=== PATIENT | female | born 1960 | race Caucasian/White ===

== ENCOUNTER 2017-01-14 05:19 | Inpatient (IN) | payer OTHER ==
[2016-11-25 13:21] VITALS: BMI 38.0
--- NOTE | 2016-11-25 14:03 | PAT Medication Instructions ---
Service Date November 25, 2016. Current Home Medication List Albuterol Hfa (Ventolin Hfa), Unknown Dose INH QID PRN for asthma/allergies Atenolol/Chlorthalidone (Tenoretic 50 Mg/25 Mg), 0.5 TAB PO QAM Metformin Hcl (Glucophage), 500 MG PO BID Multivitamin (Multivitamin), 1 TAB PO QAM Medication Instructions For Your Scheduled Surgery - Hold the following medications 48 hours prior to surgery: Metformin Hcl (Glucophage), 500 MG PO BID - Hold the following medications the morning of surgery: Multivitamin (Multivitamin), 1 TAB PO QAM - Take the following medications the morning of surgery with a sip of water: Albuterol Hfa (Ventolin Hfa), Unknown Dose INH QID PRN for asthma/allergies ( bring with you to hospital morning of surgery) Atenolol/Chlorthalidone (Tenoretic 50 Mg/25 Mg), 0.5 TAB PO QAM If you have any questions please call us at [phone] (Patricia Welch PA-C) or [phone] or [phone]
--- NOTE | 2016-11-25 14:35 | DIAGNOSTIC IMAGING REPORT ---
CHEST PREADMISSION(PA/LAT) CLINICAL HISTORY: Preoperative evaluation. COMPARISON STUDY: Chest radiograph August 08, 2014. FINDINGS: Lung volumes are normal. Lungs are clear. There is no pneumothorax or pleural effusion. Pulmonary vascularity is normal. Cardiac size is at the upper limits of normal. There is no evidence of pulmonary edema. IMPRESSION: No acute cardiopulmonary findings. Electronically signed by: Ashkan Fernandez M.D. 11/25/2016 2:34 PM Dictated Date/Time: 11/25/2016 2:33 PM
[2016-11-25 14:50] LABS: BASO % 0.5 %; BASO ABS # 0.03 K/uL (0-0.2); COMPLETE YES; EOS % 3.7 %; IG% 0.5 %; LYMPH % 18.5 %; LYMPH ABS # 1.16 K/uL (1.2-3.4); MEAN CELL VOLUME 81.9 fL (80-100); MEAN CORPUSCULAR HEMOGLOBIN 25.9 pg (25-34); MEAN CORPUSCULAR HGB CONC 31.6 g/dl (32-36); MEAN PLATELET VOLUME 10.9 fL (7.4-10.4); MONO % 7.3 %; NEUT % 69.5 %; PLATELET COUNT 232 K/uL (130-400); RED BLOOD COUNT 4.52 M/uL (4.2-5.4); WHITE BLOOD COUNT 6.26 K/uL (4.8-10.8)
[2016-11-25 14:56] LABS: ESTIMATED AVERAGE GLUCOSE 137 mg/dl; HA1C FLAG Normal (Normal)
[2016-11-25 15:00] LABS: PARTIAL THROMBOPLASTIN RATIO 0.9; PROTHROMBIN TIME (PATIENT) 10.3 SECONDS (9.0-12.0)
[2016-11-25 15:27] LABS: BUN/CREATININE RATIO 24.9 (10-20); CALCIUM 9.2 mg/dl (8.5-10.1); CREATININE 0.75 mg/dl (0.60-1.20); POTASSIUM 3.6 mmol/L (3.5-5.1)
--- NOTE | 2016-12-31 18:22 | HISTORY & PHYSICAL EXAMINATION ---
DATE OF ADMISSION: 01/05/2017 CHIEF COMPLAINT: Right knee pain. 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 She has got a long history of right knee pain and discomfort dating over the past 10 years. I saw her several years ago and encouraged her to put this off for as long as possible. She has been trying to just get it out for the past 4 or 5 years. Over the past 9 months, pain has become more debilitating. She has trouble working. 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 Her pain is constant. The more she walks, the more it hurts. She would like to have her right knee fixed. PAST MEDICAL HISTORY: 1. Diabetes x8 years. 2. Sleep apnea with CPAP machine. 3. Hypertension. 4. Asthma. 5. Gastroesophageal reflux disease. 6. Sjogren syndrome. 7. Obesity with a BMI of 38.3. 8. Endometrial cancer status post hysterectomy. PAST SURGICAL HISTORY: 1. Cholecystectomy. 2. Triple arthrodesis of left foot done at [place]. 3. Hysterectomy. ALLERGIES: SULFA, PENICILLIN, CIPRO, ADHESIVES. THE REACTION TO PENICILLIN IS RASH. No respiratory problems. CURRENT MEDICINES: Include: 1. Atenolol 12.5 mg a day. 2. Metformin 250 mg twice a day. 3. Multivitamin. SOCIAL HISTORY: A 56-year-old white female. She is . FAMILY HISTORY: Noncontributory. REVIEW OF SYSTEMS: Significant for diabetes. Hemoglobin A1c is 6.4. No chest pain or shortness of breath. No history of DVT or PE. PHYSICAL EXAMINATION: GENERAL: Reveals a pleasant, middle-aged female. She looks about her stated age. HEENT: Benign. NECK: Supple. No lymphadenopathy. LUNGS: Clear to auscultation. HEART: Regular rate and rhythm. ABDOMEN: Soft, nontender, nondistended. EXTREMITIES: Grossly neurovascularly intact except as follows: Examination of the right knee reveals patient walks with a bit of a limp on her right side. She has got varus alignment to her right knee. A little bit of varus thrust with weightbearing. Range of motion is 5-125. No instability. X-RAYS: X-rays of the right knee reviewed. It shows advanced right knee DJD. She has complete loss of medial joint space. She has subchondral sclerosis in the medial side of her knee. ASSESSMENT: A 56-year-old white female with advanced right knee degenerative joint disease. She has failed conservative treatment. It is really limiting her activities and ability to work and would like to proceed with definitive treatment/knee replacement. PLAN: We are going to take her to the operating room and do a right total knee replacement. The risks and benefits of this procedure were explained to patient including but not limited to DVT, PE, , infection, neurological injury, vascular injury, bleeding problem, pain, limited range of motion, stiffness, failure to relieve her symptoms, incomplete relief of symptoms, need for further surgery in the future, fracture, leg length inequality, nerve palsy, etc. The patient understands and desires to proceed. Informed consent was obtained. The patient is aware that at her young age, this may need to be revised at some point in the future. We did talk about bringing her CPAP machine to the hospital. She will take her atenolol the morning of surgery and hold metformin 2 days preop. As far as discharge plans, she is planning to be discharged to home using [facility] home health program. I will see her back 2 weeks postop.
[2017-01-04 13:37] LABS: BASO % 0.2 %; BASO ABS # 0.02 K/uL (0-0.2); HEMATOCRIT 36.2 % (37-47); IG% 0.6 %; LYMPH % 12.5 %; LYMPH ABS # 1.08 K/uL (1.2-3.4); MEAN CELL VOLUME 79.6 fL (80-100); MEAN CORPUSCULAR HEMOGLOBIN 25.1 pg (25-34); MEAN PLATELET VOLUME 9.5 fL (7.4-10.4); MONO % 9.5 %; NEUT % 75.2 %; PLATELET COUNT 272 K/uL (130-400); RED BLOOD COUNT 4.55 M/uL (4.2-5.4); WHITE BLOOD COUNT 8.63 K/uL (4.8-10.8)
[2017-01-04 13:42] LABS: COMPLETE YES; MEAN CORPUSCULAR HGB CONC 31.5 g/dl (32-36)
[2017-01-14] VITALS (8 sets, daily range): BP systolic 104–131; BP diastolic 49–78; PULSE 50–61; TEMP 36.3–36.8; O2SAT 94–99; Ht 175.3 cm; Wt 116.1 kg
[~2017-01-14] VITALS: Ht 175.3 cm; Wt 116.1 kg
[~2017-01-14 05:19] MED LIST: ACETAMINOPHEN 500 MG TAB PO SCH; ATEN-171 PO; BUPIVACAINE LIPOSOME 266 MG, BUPIVACAINE/EPINEPHRINE INJ 50 ML, SODIUM CHLORIDE 0.9% PF... INFIL SCH; CEFAZOLIN 2000 MG/60 ML D5W 60 ML IV SCH; CHECK SCOPOLAMINE PATCH PLACEMENT SCH; FAMOTIDINE 20 MG TAB PO SCH; GABAPENTIN 300 MG CAP PO SCH; GLC/500 PO; LACTATED RINGER'S 1000ML IV SCH; LACTATED RINGER'S 500 ML IV SCH; METOCLOPRAMIDE HCL 10 MG TAB PO SCH; MULT-506 PO; SCOPOLAMINE 1.5 MG TDSY TD SCH; TRANEXAMIC ACID INJ 1,000 MG in SODIUM CHLORIDE 0.9% 100ML 100 ML IV SCH; VNTHFA/IN INH
[2017-01-14] MEDS ORDERED: LACTATED RINGER'S 1000ML IV SCH (06:00)
[2017-01-14] MEDS ORDERED: GABAPENTIN 300 MG CAP PO SCH (06:00)
[2017-01-14] MEDS ORDERED: TRANEXAMIC ACID INJ 1,000 MG in SODIUM CHLORIDE 0.9% 100ML 100 ML IV SCH ×2 (06:00→14:30)
[2017-01-14] MEDS ORDERED: CEFAZOLIN 2000 MG/60 ML D5W 60 ML IV SCH (06:00)
[2017-01-14] MEDS ORDERED: FAMOTIDINE 20 MG TAB PO SCH (06:00)
[2017-01-14] MEDS ORDERED: LACTATED RINGER'S 1000ML 500 ML IV ONE (06:00)
[2017-01-14] MEDS ORDERED: LACTATED RINGER'S 1000ML 1,000 ML IV SCH (06:00)
[2017-01-14] MEDS ORDERED: ACETAMINOPHEN 500 MG TAB PO SCH (06:00)
[2017-01-14] MEDS ORDERED: SCOPOLAMINE 1.5 MG TDSY TD SCH (06:00)
[2017-01-14] MEDS ORDERED: METOCLOPRAMIDE HCL 10 MG TAB PO SCH (06:00)
[2017-01-14] MEDS ORDERED: BUPIVACAINE LIPOSOME 266 MG, BUPIVACAINE/EPINEPHRINE INJ 50 ML, SODIUM CHLORIDE 0.9% PF... INFIL SCH ×3 (06:00)
[2017-01-14] MEDS ORDERED: MIDAZOLAM HCL 1 MG/ML 2ML VIAL ONE ×4 (06:12→07:39)
[2017-01-14] MEDS ORDERED: FENTANYL CITRATE INJ 50 MCG/1 ML 2 ML VIAL ONE (06:12)
[2017-01-14] MEDS ORDERED: PROPOFOL IV EMULSION 10 MG/ML 20 ML VIAL IV ONE (06:13)
[2017-01-14] MEDS ORDERED: BUPIVACAINE 0.5 % 5 MG/1 ML PF 10ML VIAL ONE (06:24)
[2017-01-14] MEDS ORDERED: BUPIVACAINE 0.25% 30 ML VIAL ONE (06:24)
[2017-01-14] MEDS ORDERED: BUPIVACAINE LIPOSOME 1/3% 266 MG/20 ML VIAL INFIL ONE (06:33)
[2017-01-14] MEDS ORDERED: BACITRACIN 50000 UNIT VIAL ONE (06:33)
[2017-01-14] MEDS ORDERED: SODIUM CHLORIDE 0.9% PF 50 ML VIAL ONE (06:33)
[2017-01-14] MEDS ORDERED: BUPIVACAINE/EPINEPHRINE 0.25% 1:200,000 30 ML VIAL ONE (06:33)
--- NOTE | 2017-01-14 06:50 | History & Physical Bridge Note ---
H&P Re-Evaluation Bridge Note: I have examined the patient, reviewed the History & Physical and in the interval since the performance of the History & Physical I have noted the following changes of clinical significance: No changes noted
[2017-01-14] MEDS ORDERED: EpHEDrine SULFATE INJ 50 MG/ML AMP IV PRN (08:15)
[2017-01-14] MEDS ORDERED: ATROPINE SULFATE 0.1 MG/ML 5ML SYR IV PRN (08:15)
[2017-01-14] MEDS ORDERED: ONDANSETRON INJ 2 MG/ML 2 ML VIAL IV PRN ×2 (08:15→08:45)
--- NOTE | 2017-01-14 08:40 | [facility] Post Operative Brief Note ---
Immediate Operative Summary Operative Date Jan 14, 2017. Pre-Operative Diagnosis Right Knee Advanced Degenerative Joint Disease Post-Operative Diagnosis Right Knee Advanced Degenerative Joint Disease Procedure(s) Performed Right Total Knee Arthroplasty Surgeon Dr. Krishna Jewel Grinder Surgeon(s) CHAPINCITO Rene Estimated Blood Loss 50 cc Findings Right Knee DJD Fluids (cc crystalloids) 1300 cc Specimens A. Right Knee Bone and Tissue Drains None Anesthesia Spinal Complication(s) None Disposition Recovery Room / PACU
[2017-01-14] MEDS ORDERED: ZOLPIDEM TARTRATE 5 MG TAB PO PRN (08:45)
[2017-01-14] MEDS ORDERED: GLUCAGON FOR INJ 1 MG VIAL SQ PRN (08:45)
[2017-01-14] MEDS ORDERED: DEXTROSE 50% 50 ML SYR IV PRN (08:45)
[2017-01-14] MEDS ORDERED: DiphenhydrAMINE HCL 50 MG/ML VIAL IV PRN (08:45)
[2017-01-14] MEDS ORDERED: GLUCOSE 40% GEL 15 GM TUBE PO PRN (08:45)
[2017-01-14] MEDS ORDERED: GLUCOSE 10 TABS/TUBE PO PRN (08:45)
[2017-01-14] MEDS ORDERED: ALUMINUM/MAGNESIUM/SIMETH (MAALOX MAX) 30 ML UDC PO PRN (08:45)
[2017-01-14] MEDS ORDERED: METOCLOPRAMIDE HCL INJ 5 MG/ML 2 ML VIAL IV PRN (08:45)
[2017-01-14] MEDS ORDERED: BISACODYL 10 MG SUPP PR PRN (08:45)
[2017-01-14] MEDS ORDERED: MAGNESIUM HYDROXIDE SUSP 30 ML UDC PO PRN (08:45)
[2017-01-14] MEDS ORDERED: MoRPHine SULFATE 2 MG/ML CARP IV PRN (08:45)
[2017-01-14] MEDS ORDERED: MULTIVITAMIN TAB PO SCH (09:00)
--- NOTE | 2017-01-14 09:17 | DIAGNOSTIC IMAGING REPORT ---
RIGHT KNEE 2 VIEWS History: Right total knee arthroplasty. Degenerative arthritis. Postop. FINDINGS: The patient is status post a right total knee arthroplasty. The hardware is intact. No fracture or dislocation. Skin rosalia are in place. IMPRESSION: Right total knee arthroplasty. No evidence for hardware complication. Electronically signed by: Darwin Serrano M.D. 01/14/2017 9:15 AM Dictated Date/Time: 01/14/2017 9:15 AM
--- NOTE | 2017-01-14 09:44 | Anesthesiology Progress Note ---
Anesthesia Post Op Note Date & Time Jan 14, 2017 at 09:43 Vital Signs Pain Intensity: 0 Vital Signs Past 12 Hours Date Time Temp Pulse Resp B/P (MAP) Pulse Ox O2 Delivery O2 Flow Rate FiO2 01/14/17 09:35 60 16 120/48 100 Nasal Cannula 2 01/14/17 09:25 54 15 116/52 100 Nasal Cannula 2 01/14/17 09:15 60 15 117/60 100 Nasal Cannula 2 01/14/17 09:05 55 14 112/49 99 Nasal Cannula 2 01/14/17 08:55 58 14 114/55 99 Nasal Cannula 2 01/14/17 08:48 36.2 63 16 115/56 99 Nasal Cannula 2 01/14/17 06:01 36.8 61 18 131/61 95 Room Air Notes Mental Status: alert / awake / arousable, participated in evaluation Pt Amnestic to Procedure: Yes Nausea / Vomiting: adequately controlled Pain: adequately controlled Airway Patency, RR, SpO2: stable & adequate BP & HR: stable & adequate Hydration State: stable & adequate Neuraxial Anesthesia: was administered, sensory block is resolving Anesthetic Complications: no major complications apparent
[2017-01-14] MEDS: SODIUM CHLORIDE 0.9% 1000ML 1,000 ML IV SCH ×3 (11:52→21:52)
[2017-01-14] MEDS: INSULIN HUMAN REGULAR SC SCH ×3 (12:00→21:51)
[2017-01-14] MEDS: MULTIVITAMIN TAB PO SCH (12:06)
[2017-01-14] MEDS: KETOROLAC TROMETHAMINE 30 MG/ML VIAL IV. SCH ×3 (12:07→23:35)
[2017-01-14] MEDS: FERROUS GLUCONATE 324 MG TAB PO SCH ×2 (12:53→17:39)
[2017-01-14] MEDS: CEFAZOLIN IV 2,000 MG in DEXTROSE 5% 50ML 50 ML IV SCH ×2 (13:17→21:52)
[2017-01-14] MEDS: ACETAMINOPHEN 500 MG TAB PO SCH ×2 (13:18→21:52)
[2017-01-14] MEDS: CHECK SCOPOLAMINE PATCH PLACEMENT SCH ×2 (15:33→23:36)
[2017-01-14] MEDS: OXYCODONE HCL IR 5 MG TAB (IMMEDIATE RELEASE) PO PRN (15:51)
--- NOTE | 2017-01-14 15:58 | PROGRESS NOTE ---
DATE: 01/14/2017 SUBJECTIVE: 56-year-old white female postop from a right knee replacement. She is doing well. No real pain. No chest pain or shortness of breath. Not feeling dizzy or lightheaded. OBJECTIVE: VITAL SIGNS: Temperature is 36.5. Vital signs stable. PHYSICAL EXAMINATION: GENERAL: Reveals a healthy pleasant, middle-aged female. She is sitting up in bed and looks comfortable. LUNGS: Clear to auscultation. HEART: Regular rate and rhythm. ABDOMEN: Soft, nontender, nondistended. EXTREMITIES: Grossly neurovascularly intact except as follows. Examination of the right leg reveals the dressing to be clean, dry and intact. She can dorsiflex and plantarflex her foot appropriately. She is neurologically intact. Good brisk refill. X-RAYS: X-rays of the right knee from recovery room reviewed. It shows a right cemented posterior stabilized total knee arthroplasty. Components looked to be in good position. No signs of problems. ASSESSMENT: 56-year-old white female postop from a right knee replacement. She is doing well. Pain is controlled. She is neurologically intact. PLAN: 1. DVT prophylaxis including thigh-high TEDs, SCDs, and aspirin twice a day. 2. PT/OT. Weightbearing as tolerated. Right total knee protocol. 3. Pain control, doing pretty well with current pain regimen. 4. IV antibiotics x24 hours. 5. Disposition: She is planning to be discharged to home with some home health once adequately recovered.
[2017-01-14] MEDS: DOCUSATE SODIUM 100 MG CAP PO SCH (21:00)
[2017-01-14] MEDS: SENNA 8.6 MG TAB PO SCH (21:00)
[2017-01-14] MEDS: ASPIRIN 325 MG ECTAB PO SCH (21:45)
[2017-01-14] MEDS: TAPENTADOL ER 50 MG TABCR PO SCH (21:46)
[2017-01-14] MEDS ORDERED: ASPEC325 PO (22:28)
[2017-01-14] MEDS ORDERED: RXC5 PO (22:28)
[2017-01-14] MEDS ORDERED: ACET-24 PO (22:28)
[2017-01-14] MEDS ORDERED: FRRG PO (22:28)
[2017-01-14] MEDS ORDERED: MORP-157 PO (22:28)
--- NOTE | 2017-01-14 22:31 | Discharge Instructions ---
Discharge Instructions Date of Service Jan 14, 2017. Admission Reason for Admission: Right Knee Degenerative Joint Disease Discharge Discharge Diagnosis / Problem: Right Knee Replacement Discharge Goals Goal(s): Decrease discomfort, Improve function, Increase independence, Improve disease control, Therapeutic intervention Activity Recommendations Activity Limitations: per Instructions/Follow-up section Weightbearing Status: Right weightbearing . Instructions / Follow-Up Instructions / Follow-Up ACTIVITY RECOMMENDATIONS: Physical Therapy: * You will go to physical therapy three times each week for four to six weeks after your surgery in order to regain your knee range of motion and to retrain your knee to work properly. * It is just as important to make sure you are getting your knee perfectly straight as it is to regain your knee bend. * Taking a pain pill an hour before therapy can help you have a more productive and comfortable therapy session. Home Exercise: * You were shown a series of exercises (heel props, heel slides, etc.) in the hospital. Do these exercises three to four times each day including the exercises you were shown in physical therapy. Walking: * Get up and walk several times each day. For the first four weeks, try not to stand or walk for more than one hour at a time. If you do stand or walk for more than one hour, you will not hurt anything, but your knee and leg will likely swell. * As you feel comfortable, you may change from the walker or crutches to a cane and then to independent walking. MEDICATIONS: New Medicine: * You will likely be taking one or more of these medications: 1. MS Contin - A long-acting pain medication. Take 1 tablet twice a day for the first ten days to decrease your baseline level of pain. 2. Oxycodone - A quick and shorter-acting pain medication. Take one to two tablets every four to six hours to lessen your pain. 3. Iron Sulfate - Take three times each day for the month after surgery to help you replace the blood lost during surgery. 4. Aspirin - Thins your blood to lessen the chance of forming a blood clot. * The most common side effects of pain medicine and iron are nausea and constipation. If nausea or constipation is too much of a problem or if you have any questions about your new medicines or doses, call [facility] at . We will try to help you manage these issues. VERY IMPORTANT TO READ AND REVIEW" Pain: * The immediate post-operative period after knee replacement surgery is often quite painful. * You are given a prescription for pain medicine. You should take it, as directed, when you need it, especially before physical therapy and before going to bed. Pain that interferes with sleep is very common and can last several months. * You will likely need pain medicine for the first four to six weeks. It will not stop all of the pain. The pain will lessen and as you feel better, you may change to milder pain medicine such as Tylenol. * The most common side effects of pain medicine are nausea and constipation, so don't take more than you need. SPECIAL CARE INSTRUCTIONS: TEDs/Elastic Stockings: * The white elastic stockings help limit swelling and prevent blood clots from forming in your legs. The more you wear them, the more they work. * Wear them for six weeks after knee replacement surgery and four weeks after partial knee replacement. Prevention of Infection: * Take antibiotics one hour before any dental cleaning, dental work, urological procedure, gastrointestinal procedure or any invasive surgery in order to prevent your new joint from getting infected. * You may get the antibiotics from the doctor performing the procedure or you may call our office at before and we will call in a prescription to the pharmacy of your choice. Things to Watch For: * Drainage from the incision site that occurs more than one week after your surgery. * Severely increased knee/leg pain or swelling. * Increased redness at the incision site. * Fever above 102 degrees Fahrenheit. * Unusual chest pain or shortness of breath. * Unusual pain or burning with urination. Call [facility] at with any of the above problems or if you have any questions about your medicines or recovery. FOLLOW UP VISIT: Make an appointment to see your doctor for approximately two weeks after surgery for a progress check and staple removal by calling the office at . Current Hospital Diet Patient's current hospital diet: Diabetes Type 2 Diet Discharge Diet Recommended Diet: Diabetes Type 2 Diet Procedures Procedures Performed: Right Total Knee Arthroplasty Pending Studies Studies pending at discharge: no Laboratory Results Hemoglobin A1c Test 11/25/16 14:10 Range/Units Estimated Average Glucose 137 mg/dl Hemoglobin A1c 6.4 H 4.5-5.6 % Medical Emergencies . Who to Call and When: Medical Emergencies: If at any time you feel your situation is an emergency, please call 911 immediately. . Non-Emergent Contact Non-Emergency issues call your: Surgeon . "Provider Documentation" section prepared by Donny Krishna. . VTE Core Measure Inpt VTE Proph given/why not?: Other Anticoagulation, T.E.D. Stockings, SCD's
--- NOTE | 2017-01-14 23:08 | OPERATIVE REPORT ---
DATE OF OPERATION: 01/14/2017 SURGEON: Dr. Donny Krishna. RN PROCEDURE: CHAPINCITO Sanches PREOPERATIVE DIAGNOSIS: Right knee degenerative joint disease. POSTOPERATIVE DIAGNOSIS: Same. PROCEDURE PERFORMED: Right cemented posterior stabilized total knee arthroplasty. COMPLICATIONS: None. ESTIMATED BLOOD LOSS: 50 mL. FLUID REPLACEMENT: 1300 mL crystalloid fluid replacement. TOURNIQUET TIME: 56 minutes at 300 mmHg. ANESTHESIA: Spinal with adductor canal block. DRAINS: None. SPECIMENS: Right knee sent for pathology. 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 She has got a long history of right knee pain and discomfort dating back over the past 10 years. She tried to put this off for years. The pain has become more debilitating. She has been unresponsive to conservative treatment and she elected to proceed with right total knee arthroplasty. OPERATIVE FINDINGS: Operative findings revealed advanced right knee DJD. 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 Not a lot of eburnation, but just cartilage loss. She did have some spotty grade 4 changes laterally and a fairly diffuse grade 4 changes of the patellofemoral joint. She had a moderate sized joint effusion. She had a varus alignment to her knee. OPERATIVE IMPLANTS: Operative implants consisted of: 1. Biomet Vanguard size 65 posterior stabilized femoral component. 2. Biomet size 67 tibia. 3. A 12 mm posterior stabilized polyethylene insert. 4. A 34 x 8.5 All-Poly patella. OPERATIVE PROCEDURE: The patient taken to the operating room, identified and placed on the operating table in supine position. All contact areas were appropriately padded. IV antibiotics were provided by anesthesia team. A spinal anesthetic and adductor canal block had been provided in the holding area. Montoya catheter was placed in sterile fashion. Right thigh tourniquet was then placed. The right lower extremity was then prepped and draped in the usual sterile fashion. The right leg was elevated and exsanguinated with Esmarch and tourniquet was placed at 300 mmHg. An anterior approach to the right knee was then performed through a longitudinal incision centered over the patella. Sharp dissection was carried out through the subcutaneous tissues down to the level of the extensor mechanism. A medial parapatellar arthrotomy incision was made. Some subperiosteal dissection was carried out medially. The fat pad was resected from beneath the patellar tendon. The lateral patellofemoral ligament was released. The patella was everted and knee was flexed. The ACL and PCL were then released from the distal femur and the tibia subluxated anteriorly. The external tibial alignment jig was then placed in the anterior face of the tibia and adjusted 14 mm medially. The tibia was cut to take approximately 2 mm of bone from the medial aspect of the medial tibial plateau. The tibia was sized to a 67. Attention was then drawn to the femur. The distal femur was entered with a sharp drill bit. Intramedullary canal was suctioned. A right 5 degree valgus cutting guide was placed. The distal femoral cutting block was pinned in place. Distal femoral cut was made to take an additional 3 mm of bone off the distal femur. The femur was then sized to a size 65. We did downsize this slightly. The AP cutting block was pinned parallel to the epicondylar axis, which was 3 degrees of external rotation. The anterior cut, anterior chamfer, posterior cut, posterior chamfer cuts were made. Box cutting guide was placed and adjusted slightly lateral and the box cut was made. The knee was flexed. The remnants of the medial and lateral menisci were excised. The osteophytes were taken off the posterior aspect of the femur. Trial femoral component was placed. Tibial tray was pinned in maximum external rotation and the drill and stem punch were used to create defect in proximal tibia for the tibial tray. The knee was then trialed and the 12 mm insert fit most appropriately. Attention was then drawn to the patella. The patella was cleaned of all soft tissues. Patellar thickness measured 22 mm in thickness and was cut down to 13. It was sized to a size 34 patella. The lug holes were drilled for a 34 patella. The lateral osteophyte was removed. Patella button was placed. Knee was taken through range of motion and the patella tracked nicely with no thumbs test. Attention was then drawn toward placement of permanent components. All trial components were removed. A bone plug was placed in the distal femur to limit blood loss. A double batch of Palacos G cement was mixed. A right size 65 posterior stabilized femoral component, size 67 tibial tray, a 12 mm posterior stabilized polyethylene insert, and a 34 x 8.5 All-Poly patella were then cemented in place. Knee was brought out into full extension until cement hardened. A final cement check was then performed. The knee was irrigated with pulsatile lavage and injected with a combination of 30 cc of Exparel, 30 cc of normal saline, 50 mL of .25% marcaine with epinephrine. The tourniquet was left down for a final tourniquet time of 56 minutes. Hemostasis was assured with use of electrocautery. The extensor mechanism was then closed with a combination of #1 PDS suture and #1 Vicryl suture in a [id number] fashion. Extensor mechanism was checked and found to be intact. The subcutaneous tissues were then closed with 2-0 Dexon suture in a buried interrupted fashion. Skin was closed with skin rosalia. Leg was then cleaned and dried and a sterile dressing of Xeroform, 4 x 4, sterile cast padding and Valeriano bandage were applied. The patient then transferred to the recovery room in stable condition. The patient tolerated the procedure well with no complication. All instrument and sponge counts were correct at the end of the operation. I attest to the content of the Intraoperative Record and any orders documented therein. Any exceptions are noted below. IRWIND
[2017-01-15] VITALS (7 sets, daily range): BP systolic 107–151; BP diastolic 54–84; PULSE 53–59; TEMP 36.4–36.9; O2SAT 91–94
[2017-01-15] MEDS: SODIUM CHLORIDE 0.9% 1000ML 1,000 ML IV SCH (04:40)
[2017-01-15] MEDS: KETOROLAC TROMETHAMINE 30 MG/ML VIAL IV. SCH ×3 (05:49→18:02)
[2017-01-15] MEDS: ACETAMINOPHEN 500 MG TAB PO SCH ×3 (05:50→21:06)
[2017-01-15 07:09] LABS: HEMATOCRIT 31.3 % (37-47); MEAN CELL VOLUME 81.1 fL (80-100); MEAN CORPUSCULAR HEMOGLOBIN 25.1 pg (25-34); MEAN PLATELET VOLUME 9.5 fL (7.4-10.4); PLATELET COUNT 212 K/uL (130-400); RED BLOOD COUNT 3.86 M/uL (4.2-5.4); WHITE BLOOD COUNT 6.32 K/uL (4.8-10.8)
[2017-01-15 07:23] LABS: BUN/CREATININE RATIO 18.2 (10-20); CALCIUM 7.9 mg/dl (8.5-10.1); CREATININE 0.84 mg/dl (0.60-1.20); POTASSIUM 3.9 mmol/L (3.5-5.1)
--- NOTE | 2017-01-15 08:08 | PROGRESS NOTE ---
DATE: 01/15/2017 DATE: 01/15/2017. SUBJECTIVE: A 56-year-old white female postop day 1 from right knee replacement. She is doing pretty well. Pain is reasonably well controlled. No chest pain or shortness of breath. Not feeling dizzy or lightheaded. OBJECTIVE: VITAL SIGNS: Temperature 36.7. Vital signs stable. PHYSICAL EXAMINATION: GENERAL: Pleasant middle aged female. She is sitting up in bed, looks pretty comfortable. LUNGS: Clear to auscultation. HEART: Regular rate and rhythm. ABDOMEN: Soft, nontender, nondistended. EXTREMITY EXAMINATION: Grossly neurovascularly intact except as follows: Examination of the right leg reveals the dressing to be clean, dry and intact. She can dorsiflex and plantarflex her foot appropriately. She is neurologically intact. LABORATORY DATA: Hemoglobin 9.7, hematocrit 31.3. Electrolytes are stable. ASSESSMENT: A 56-year-old white female postop day 1 from right knee replacement, doing pretty well. She is slightly anemic, but chronically anemic and without symptoms. Her pain is controlled. PLAN: 1. DVT prophylaxis including thigh-high TEDs, SCDs, and aspirin twice a day. 2. PT/OT. Weightbearing as tolerated. Right total knee protocol. 3. Pain control. Doing pretty well with current pain regimen. 4. Anemia. We will continue iron supplementation. Should not need any additional treatment. 5. Disposition. Plan to discharge to home with home health once adequately recovered.
[2017-01-15] MEDS: INSULIN HUMAN REGULAR SC SCH ×4 (08:44→21:00)
[2017-01-15] MEDS: CHECK SCOPOLAMINE PATCH PLACEMENT SCH ×2 (08:44→16:01)
[2017-01-15] MEDS: DOCUSATE SODIUM 100 MG CAP PO SCH ×2 (08:45→21:04)
[2017-01-15] MEDS: ASPIRIN 325 MG ECTAB PO SCH ×2 (08:45→21:04)
[2017-01-15] MEDS: TAPENTADOL ER 50 MG TABCR PO SCH ×2 (08:45→21:04)
[2017-01-15] MEDS: FERROUS GLUCONATE 324 MG TAB PO SCH ×3 (08:45→18:02)
[2017-01-15] MEDS: CHLORTHALIDONE 25 MG TAB PO SCH (08:49)
[2017-01-15] MEDS: MULTIVITAMIN TAB PO SCH (08:50)
[2017-01-15] MEDS: PANTOprazole SOD 40 MG TAB PO SCH (08:50)
--- NOTE | 2017-01-15 08:51 | Anesthesiology Progress Note ---
Anesthesia Post Op Note Date & Time Jan 15, 2017 at 08:50 Vital Signs Pain Intensity: 2.0 Vital Signs Past 12 Hours Date Time Temp Pulse Resp B/P (MAP) Pulse Ox O2 Delivery O2 Flow Rate FiO2 01/15/17 08:01 36.7 54 17 114/54 (74) 94 Room Air 01/15/17 07:30 93 Room Air 01/15/17 04:31 36.7 53 18 112/71 (85) 93 Room Air 01/14/17 23:30 Room Air CPAP 01/14/17 22:57 36.7 53 16 104/60 (75) 94 CPAP Notes Mental Status: alert / awake / arousable, participated in evaluation Pt Amnestic to Procedure: Yes Nausea / Vomiting: adequately controlled Pain: adequately controlled Airway Patency, RR, SpO2: stable & adequate BP & HR: stable & adequate Hydration State: stable & adequate Anesthetic Complications: no major complications apparent
[2017-01-15] MEDS: OXYCODONE HCL IR 5 MG TAB (IMMEDIATE RELEASE) PO PRN (11:11)
[2017-01-15] MEDS: SENNA 8.6 MG TAB PO SCH (21:05)
[2017-01-16] MEDS: CHECK SCOPOLAMINE PATCH PLACEMENT SCH (00:08)
[2017-01-16] MEDS: KETOROLAC TROMETHAMINE 30 MG/ML VIAL IV. SCH ×2 (00:12→05:49)
[2017-01-16] MEDS: ACETAMINOPHEN 500 MG TAB PO SCH ×2 (05:50→14:00)
[2017-01-16 07:13] VITALS: BP 127/59; PULSE 56; TEMP 36.9; O2SAT 93
[2017-01-16] MEDS: DOCUSATE SODIUM 100 MG CAP PO SCH (09:00)
[2017-01-16] MEDS: CHLORTHALIDONE 25 MG TAB PO SCH (09:49)
[2017-01-16] MEDS: MULTIVITAMIN TAB PO SCH (09:51)
[2017-01-16] MEDS: PANTOprazole SOD 40 MG TAB PO SCH (09:51)
[2017-01-16] MEDS: FERROUS GLUCONATE 324 MG TAB PO SCH ×2 (09:52→12:30)
[2017-01-16] MEDS: ASPIRIN 325 MG ECTAB PO SCH (09:52)
[2017-01-16] MEDS: INSULIN HUMAN REGULAR SC SCH (09:57)
[2017-01-16] MEDS: TAPENTADOL ER 50 MG TABCR PO SCH (10:07)
[2017-01-16] MEDS: OXYCODONE HCL IR 5 MG TAB (IMMEDIATE RELEASE) PO PRN ×2 (10:08→13:48)
[2017-01-16 10:47] VITALS: BP 127/59; PULSE 56; TEMP 36.9; O2SAT 93
--- NOTE | 2017-01-16 11:02 | PROGRESS NOTE ---
DATE: 01/16/2017 DATE: 01/16/2017. SUBJECTIVE: A 56-year-old white female postop day 2 from a right knee replacement. She is doing well. Pain is controlled. No chest pain or shortness of breath. Therapy has gone well. OBJECTIVE: VITAL SIGNS: Temperature is 36.9. Vital signs stable. PHYSICAL EXAMINATION: GENERAL: Reveals a healthy pleasant, middle-aged female. She was walking out of the bathroom with her walker when I visited her today. She is getting around quite well. LUNGS: Clear to auscultation. HEART: Regular rate and rhythm. ABDOMEN: Soft, nontender, nondistended. EXTREMITY EXAMINATION: Grossly neurovascularly intact except as follows: Examination of the right leg reveals the dressing to be clean, dry and intact. She can dorsiflex and plantarflex her foot appropriately. She is neurologically intact. ASSESSMENT: A 56-year-old white female postop day 2 from right knee replacement, doing well. Pain is controlled. PLAN: 1. DVT prophylaxis including thigh-high TEDs, SCDs, and aspirin twice a day. 2. PT/OT. Weightbearing as tolerated. Right total knee protocol. 3. Pain control. Doing well with current pain regimen. 4. Disposition. Plan to discharge to home after therapy today.
--- NOTE | 2017-01-20 16:26 | Discharge Summary ---
Orthopedic Discharge Summary Admission Date/Reason Jan 14, 2017 at 06:40 Right Knee Degenerative Joint Disease. Discharge Date/Disposition Jan 16, 2017 Home with services Diagnosis Principal Diagnosis: right knee DJD Secondary Diagnoses/Problems: 1. Diabetes x8 years. 2. Sleep apnea with CPAP machine. 3. Hypertension. 4. Asthma. 5. Gastroesophageal reflux disease. 6. Sjogren syndrome. 7. Obesity with a BMI of 38.3. 8. Endometrial cancer status post hysterectomy. Procedure(s) Performed right TKA Consultations none Medication Reconciliation New Medications: Morphine Cont Rel (Ms Contin) 15 Mg Tab 15 MG PO Q12 for 10 Days, #20 TAB Take for 10 days to lessen pain. Acetaminophen (Sb Non-Aspirin Extra Stre) 500 Mg Tab 1000 MG PO Q8H for 30 Days, #180 TAB Take 3 times per day to lessen pain. Aspirin (Aspirin) 325 Mg Ectab 325 MG PO BID for 45 Days, #90 Take to prevent blood clots. Ferrous Gluconate (Ferrous Gluconate) 324 Mg Tab 324 MG PO BIDM for 30 Days, #60 TAB Take to restore blood count. Oxycodone HCl (Oxycodone HCl) 5 Mg Tab 5-10 MG PO Q6H PRN for Pain for 30 Days, #60 TAB Take as needed for Pain. Continued Medications: Albuterol Hfa (Ventolin Hfa) Unknown Strength Aers Unknown Dose INH QID PRN for asthma/allergies , #1 INHALER patient 2 puffs PRN QID Atenolol/Chlorthalidone (Tenoretic 50 Mg/25 Mg) 50 Mg/25 Mg Tab 0.5 TAB PO QAM, TAB Metformin Hcl (Glucophage) 500 Mg Tab 500 MG PO BID, TAB Multivitamin (Multivitamin) Tab 1 TAB PO QAM, TAB Admission Physical Exam As per Admitting History & Physical. Hospital Course Yaneth was admitted on 01/14/17 and underwent TKA. She tolerated the procedure well. No complications. She was transferred to the pacu post op and later to the orthopedic floor for further care. She was given ancef for antibiotic prophylaxis. Teds, scd's, and aspirin for dvt prophylaxis. Hemoglobin , hematocrit, and vital signs were monitored during her hospital stay and remained stable. She did not require any blood transfusions. There were no complications. By POD#2 she was tolerating a diabetic diet, pain was controlled with oral pain medicines, she was participating in PT, and had no s/s of dvt. On POD #2 she was discharged home with home health. She was given printed d/c instructions including prescriptions as above. Continue PT, WBAT, vandana stockings. Follow up in 10-12 or sooner if there are problems or concerns. Discharge Instructions Please refer to the electronic Patient Visit Report (Discharge Instructions) for additional information.
== END 2017-01-16 14:57 | disposition home health service (06) | DRG 470 ==
LOC: C.ACU 05:19 → C.MSW 06:40 → ENRESERV 09:33
PROVIDERS: ADMIT Orthopaedic Surgery Sports Medicine; ATTEND Orthopaedic Surgery Sports Medicine
PROC: 0SRC0J9 Replacement of Right Knee Joint with Synthetic Substitute, Cemented, Open Approach (ICD-10-PCS; principal; 2017-01-14 07:00)
DX: M17.11 Unilateral primary osteoarthritis, right knee (principal); M25.461 Effusion, right knee; M21.161 Varus deformity, not elsewhere classified, right knee; I10 Essential (primary) hypertension; I08.1 Rheumatic disorders of both mitral and tricuspid valves; J45.909 Unspecified asthma, uncomplicated; E11.9 Type 2 diabetes mellitus without complications; D64.9 Anemia, unspecified; M35.00 Sjogren syndrome, unspecified; G47.33 Obstructive sleep apnea (adult) (pediatric); E66.9 Obesity, unspecified; Z68.38 Body mass index [BMI] 38.0-38.9, adult; Z99.89 Dependence on other enabling machines and devices; Z98.1 Arthrodesis status; Z79.84 Long term (current) use of oral hypoglycemic drugs; Z79.899 Other long term (current) drug therapy

== ENCOUNTER → 2017-07-20 | Outpatient (CLI) | payer OTHER ==
[~2017-07-20] MED LIST changes: +ACET-24 PO; -ACETAMINOPHEN 500 MG TAB PO SCH; +ASPEC325 PO; -BUPIVACAINE LIPOSOME 266 MG, BUPIVACAINE/EPINEPHRINE INJ 50 ML, SODIUM CHLORIDE 0.9% PF... INFIL SCH; -CEFAZOLIN 2000 MG/60 ML D5W 60 ML IV SCH; -CHECK SCOPOLAMINE PATCH PLACEMENT SCH; -FAMOTIDINE 20 MG TAB PO SCH; +FRRG PO; -GABAPENTIN 300 MG CAP PO SCH; -LACTATED RINGER'S 1000ML IV SCH; -LACTATED RINGER'S 500 ML IV SCH; -METOCLOPRAMIDE HCL 10 MG TAB PO SCH; +RXC5 PO; -SCOPOLAMINE 1.5 MG TDSY TD SCH; -TRANEXAMIC ACID INJ 1,000 MG in SODIUM CHLORIDE 0.9% 100ML 100 ML IV SCH
--- NOTE | 2017-07-20 15:29 | MAMMOGRAPHY REPORT ---
BILATERAL DIGITAL SCREENING MAMMOGRAM TOMOSYNTHESIS WITH CAD: 07/20/2017 CLINICAL HISTORY: Routine screening. Patient has no complaints. TECHNIQUE: Breast tomosynthesis in addition to standard 2D mammography was performed. Current study was also evaluated with a Computer Aided Detection (CAD) system. COMPARISON: Comparison is made to exams dated: 07/16/2016 mammogram, 07/11/2015 mammogram, 4 mammogram, 06/29/2013 mammogram, 06/17/2012 mammogram, and 12/30/2010 mammogram - [facility]. BREAST COMPOSITION: The tissue of both breasts is almost entirely fatty. FINDINGS: The parenchymal pattern is unchanged. No developing mass, architectural distortion or clus ter of suspicious microcalcifications is seen in either breast. IMPRESSION: ACR BI-RADS CATEGORY 2: BENIGN There is no mammographic evidence of malignancy. A 1 year screening mammogram is recommended. The pa tient will receive written notification of the results. Approximately 10% of breast cancers are not detected with mammography. A negative mammographic report should not delay biopsy if a clinically suggestive mass is present. Torri Pritchard M.D. ay/:07/20/2017 12:47:00 Porter Marina: Kaylah ORTIZ(Leann)(M), [facility] letter sent: Normal 1/2 BI-RADS Code: ACR BI-RADS Category 2: Benign
== END | disposition home or self-care (01) ==
LOC: C.MAMM 08:10
PROVIDERS: ATTEND Obstetrics & Gynecology
DX: Z12.31 Encounter for screening mammogram for malignant neoplasm of breast (principal)

== ENCOUNTER → 2018-03-04 | Outpatient (CLI) | payer OTHER ==
[2018-03-04 12:48] LABS: HEMOGLOBIN A1C 6.4 % (4.5-5.6)
[2018-03-04 12:55] LABS: CREATININE RANDOM URINE 74.9 mg/dl
== END | disposition home or self-care (01) ==
LOC: C.LAB 10:44
PROVIDERS: ATTEND Physician Assistant
DX: E11.9 Type 2 diabetes mellitus without complications (principal); Z79.899 Other long term (current) drug therapy

== ENCOUNTER 2021-02-13 16:15 | Inpatient (IN) ==
[2021-02-13] MEDS ORDERED: SODIUM CHLORIDE 0.9% 500 ML IV STA (16:41)
[2021-02-13] MEDS ORDERED: ACETAMINOPHEN 500 MG TAB PO STA (16:58)
--- NOTE | 2021-02-13 17:03 | Emergency Department Note ---
Impression & Plan Breathlessness, Non-ST elevation VT (NSTEMI), Fever ED Provider Note Provider: Junito Rodriguez MD DATE OF SERVICE: 02/13/2021 CHIEF COMPLAINT: Shortness of breath, cough, fevers HISTORY OF PRESENT ILLNESS: Patient is a 61-year-old female history of diabetes and hypertension on daily aspirin but not on insulin presenting here today referred by her PCP due to abnormal blood work. Reports she was at her doctor's office today with continued shortness of breath cough chills and some fever with some left-sided chest discomfort. Patient states since about January 25 she has been ill. States several family members/her children were a bit ill then but her children recovered well. She has continued to have intermittent cough with fatigue and fevers. Was seen by her doctor's office around this time and started on azithromycin and prednisone as well as an inhaler. Symptoms have persisted. Reported fever 101 earlier and reports that her D-dimer and troponin were elevated prompting her to receive a call to come here to the ER. Does report episode last night where she had significant chest pain and pressure which has minimized now. Denies a history of heart disease. Denies any abdominal pain or nausea or vomiting. States has not been eating quite as well recently. Denies recent travel or leg swelling. Patient states she is vaccinated against Covid. Took some Tylenol this morning but none since. REVIEW OF SYSTEMS: A total of 10 review of systems was obtained and negative ex cept as stated above in the HPI. PAST MEDICAL HISTORY: As noted above MEDICATIONS: Reviewed home medication list SOCIAL HISTORY: works here at the [employer], lives at home with , non- smoker PHYSICAL EXAM: GENERAL: alert and oriented in no acute distress on stretcher but appears somewhat fatigued Head: normocephalic and atraumatic EYES: No injection, discharge or icterus. NECK: Trachea midline. LUNGS: Airway patent. No retractions. Breath sounds clear with good air entry bilaterally. HEART: Regular rate and rhythm. No chest wall tenderness ABDOMEN: Soft and non-tender, without guarding or rebound. SKIN: Acyanotic, warm, dry, without rashes EXTREMITIES: Without swelling, tenderness or deformity NEUROLOGICAL: No focal deficits. No aphasia. No facial droop or slurred speech. Ambulatory. EK bpm normal sinus rhythm. No PVC or PAC. No acute ST segment elevation or depression. QTC 410. CONTINUOUS CARDIAC MONITORING: was ordered and showed a heart rate of 80s and 9 0s bpm in normal sinus rhythm Patient's laboratory studies and imaging reviewed. Differential includes Infection, dehydration, metabolic abnormality, hypo/hyperglycemia, electrolyte disturbance, anemia, hypoxia, cardiac sources, intracerebral event, toxicologic, neurologic, as well as other pathologies. IMPRESSION/MEDICAL DECISION MAKING: Patient planes of fever with chest heaviness and some shortness of breath and cough. No significant leg swelling lower suspicion for heart failure. Benign abdomen. Send Covid test although she is vaccinated. Tickborne illness labs sent although she does NOT complain of rash. Question cardiac strain from underlying ACS versus PE vs myocarditis versus demand from febrile illness. Sent lactate and blood cultures as well. Does not appear meningitic at this point. Had blood work several hours ago question possible PE given the elevated D-dimer. She is not significantly hypoxic here but is slightly tachypneic and again febrile. Given some Tylenol. Given some IV fluid and avoid some aspirin. White blood cell count of 10.6 is noted. No anemia. Renal function appears stable. Mild hyperglycemia of 207. No evidence acute hepatitis or pancr eatitis. Troponin is persistently elevated just slightly higher than previously and given such we will anticoagulate with heparin. CT scan of the chest without evidence of large PE. Radiology report does not clearly see evidence of pneumonia. Patient previously received azithromycin several weeks ago. At this time given dose of doxy and ceftriaxone empirically given her continued fevers although she does not appear grossly septic. Given the elevated troponin with her chest pressure which was much worse last night (now she tells me resolved) and her general illness and fever feel that further care at the hospital is warranted. Patient was in agreement. Hospitalist contacted. DIAGNOSIS: Shortness of breath, fever, NSTEMI DISPOSITION: Hospitalist will evaluate Patient was agreeable with this plan. Critical Care I have personally spent 36 minutes of critical care time in the direct management of this patient. This includes bedside care, interpretation of diagnostic studies, and testing, discussion with consultants, patient, and family members, and other required patient management activities. These 36 minutes is in excess of all separately billable procedures. 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 Beliefs That Will Affect Care: None Current Living Situation: Spouse Current Living Situation Comment: grandchildren Feels Safe at Home: Yes Assistive Devices: CPAP and Glasses Allergies Allergies Allergy/AdvReac Type Severity Reaction Status Date / Time adhesive Allergy Severe skin Verified 06/12/20 09:05 irritation ciprofloxacin Allergy Intermediate RASH Verified 07/16/20 08:55 Penicillins Allergy Intermediate rash Verified 07/16/20 08:55 Sulfa (Sulfonamide Allergy Intermediate rash Verified 07/16/20 08:55 Antibiotics) Cipro Allergy Unknown RASH Verified 01/14/17 05:54 morphine AdvReac Intermediate BAD Verified 07/16/20 08:55 HEADACHE codeine AdvReac Mild CONFUSION Verified 07/16/20 08:55 oxycodone AdvReac Mild Headache Verified 07/16/20 08:55 Home Meds Home Medications Medication Instructions Recorded Confirmed ALBUTEROL HFA (VENTOLIN HFA) INHALATION QID PRN #1 inhaler 11/25/16 06/12/20 Atenolol/Chlorthalidone (Tenoretic 0.5 tab PO QAM #0 tab 11/25/16 06/12/20 50 Mg/25 Mg) METFORMIN HCL (GLUCOPHAGE) 500 mg PO DAILY #0 tab 11/25/16 06/12/20 Multivitamin 1 tab PO QAM #0 tab 11/25/16 06/12/20 Aspirin 81 mg PO DAILY 09/26/18 06/12/20 Previous Rx's Medication Instructions Recorded Ferrous Gluconate 324 mg PO BIDM 30 Days #60 tab 01/14/17 clindamycin HCl 300 mg capsule 300 mg PO TID #2 cap 02/20/20 clindamycin HCl 300 mg capsule 300 mg PO TID #21 cap 09/24/20 Results & Data (ED) Vital Signs Vital Signs - 24 hr 02/13/21 16:33 Temperature 38.0 C H Temperature Source Oral Pulse Rate 87 Respiratory Rate 20 Respiratory Effort / Characteristics Non-Labored Spontaneous Respiratory Depth Normal Blood Pressure 135/75 Blood Pressure Mean 95 Pulse Oximetry 95 Oxygen Delivery Method Room Air Sepsis Recent Fever Within 48 Hours Yes Sepsis New/Unexplained Change in Mental Status No Sepsis Action Taken by Nursing No Action Required Laboratory Data Lab Results 02/13/21 02/13/21 02/13/21 Range/Units 16:41 16:41 16:41 PT 10.4 (9.0-12.0) Seconds INR 1.0 (0.9-1.1) Lactate (0.4-2.0) mmol/L Troponin I 0.155 H* (0-0.045) ng/ml C-Reactive Protein 9.60 H (0-0.29) mg/dl Anaplasma Smear See Comment COVID-19 Eval Order 02/13/21 02/13/21 Range/Units 16:41 17:18 PT (9.0-12.0) Seconds INR (0.9-1.1) Lactate 1.8 (0.4-2.0) mmol/L Troponin I (0-0.045) ng/ml C-Reactive Protein (0-0.29) mg/dl Anaplasma Smear COVID-19 Eval Order Covid19 at [facility] Administered Medications Discontinued Medications Acetaminophen (Acetaminophen 500 Mg Tab) 1,000 mg PO NOW STA Stop: 02/13/21 16:59 Last Admin: 02/13/21 17:54 Dose: 1,000 mg Documented by: [id number] Aspirin (Aspirin 81 Mg Chew) 243 mg PO NOW STA Stop: 02/13/21 17:13 Last Admin: 02/13/21 17:54 Dose: 243 mg Documented by: [id number] Sodium Chloride (Nss) 500 mls @ 999 mls/hr IV .Q31M STA Stop: 02/13/21 17:11 Last Admin: 02/13/21 17:54 Dose: 999 mls/hr Documented by: [id number] Ioversol (Optiray 320 125ml) 118 ml IV ONCE ONE Stop: 02/13/21 17:26 Last Admin: 02/13/21 17:25 Dose: 118 ml Documented by: [id number] Imaging Data Radiologist's Impression: Chest CTA 02/13/21 16:44 CT ANGIOGRAM OF THE CHEST CLINICAL HISTORY: Fever. Dyspnea. Elevated d-dimer. COMPARISON STUDY: Chest x-ray dated 02/13/2021. Thyroid ultrasound dated 12/13/2019. TECHNIQUE: Following the IV administration of 118 cc of Optiray 320, CT angiogram of the chest was performed from the upper abdomen to the thoracic inlet utilizing the pulmonary embolus protocol. Images are reviewed in the axial, sagittal, and coronal planes. 3-D MIPS images are created and assessed. IV contrast was administered without complication. A dose lowering technique was utilized adhering to the principles of ALARA. The examination is degraded by motion artifact. CT DOSE: 768.15 mGy.cm FINDINGS: Thyroid: The thyroid gland is enlarged and heterogeneous. Bilateral thyroid nodules measure up to 2.4 cm. This was better assessed on previous thyroid ultrasound. Thoracic aorta: The thoracic aorta is normal in caliber and demonstrates standard 3-vessel arch anatomy. No dissection is seen. Pulmonary vasculature: The pulmonary trunk is normal in caliber. There are no filling defects identified in main, lobar, or proximal segmental pulmonary branches to suggest pulmonary embolus. Evaluation of the peripheral branches is degraded by motion artifact. Heart: The heart is normal in size and without pericardial effusion. Lungs and pleural spaces: Evaluation of the lung parenchyma is degraded by motion artifact. There is trace left pleural effusion. No airspace consolidation is seen typical for pneumonia. Scarring/atelectasis is present at the lung bases. The trachea and central airways are clear. Mediastinum: Scattered subcentimeter mediastinal lymph nodes are not pathologically enlarged by size criteria. Shelley: Clear. Axillae: There is no axillary lymphadenopathy. Upper abdomen: The liver appears steatotic. A small hiatal hernia is noted. Skeletal structures: The skeletal structures are osteopenic. Degenerative change is noted in the shoulders and thoracic spine. No lytic or blastic bony lesions are seen. IMPRESSION: 1. There is no evidence of pulmonary embolus in the main, lobar, or proximal segmental pulmonary arteries. 2. There is no airspace consolidation typical for pneumonia. 3. Trace left pleural effusion. 4. Multinodular goiter. 5. Additional findings as above. ACT 112: Negative or not required by law. Electronically signed by: Hal Golden M.D. 02/13/2021 5:45 PM Discharge Plan Visit Data Chief Complaint: Referred by Doctor Stated Complaint: SENT BY , BLOOD CLOT ED Provider: Junito Rodriguez Discharge Problem: Breathlessness, Non-ST elevation VT (NSTEMI), Fever Patient Disposition: Being Evaluated by Hospitalist Forms Stand Alone Forms: My [facility] Prescriptions Prescriptions: No Action Atenolol/Chlorthalidone (Tenoretic 50 Mg/25 Mg) 50 MG/25 MG tablet 0.5 tab PO QAM Qty: 0 RF: 0 METFORMIN HCL (GLUCOPHAGE) 500 MG tablet 500 mg PO DAILY Qty: 0 RF: 0 Multivitamin tablet 1 tab PO QAM Qty: 0 RF: 0 ALBUTEROL HFA (VENTOLIN HFA) AEROSOL,SOLN Inhalation QID PRN (Reason: asthma/allergies ) Qty: 1 RF: 0 Ferrous Gluconate 324 MG tablet 324 mg PO BIDM 30 Days Qty: 60 RF: 0 clindamycin HCl 300 mg capsule 300 mg PO TID Qty: 2 RF: 2 clindamycin HCl 300 mg capsule 300 mg PO TID Qty: 21 RF: 0 Aspirin 325 MG ENTERIC COATED TAB 81 mg PO DAILY RF: 0 Referrals Referrals: Chel Hamilton DO [Primary Care Provider] - Discharge Problem: Fever Qualifiers: Fever type: unspecified Qualified Code(s): R50.9 - Fever, unspecified
[2021-02-13] MEDS ORDERED: ASPIRIN 81 MG CHEW PO STA (17:12)
[2021-02-13] MEDS ORDERED: OPTIRAY 320 125ml IV ONE (17:25)
[2021-02-13 17:39] LABS: Prothrombin Time 10.4 Seconds (9.0-12.0)
--- NOTE | 2021-02-13 17:46 | CT Scan Report ---
CT ANGIOGRAM OF THE CHEST CLINICAL HISTORY: Fever. Dyspnea. Elevated d-dimer. COMPARISON STUDY: Chest x-ray dated 02/13/2021. Thyroid ultrasound dated 12/13/2019. TECHNIQUE: Following the IV administration of 118 cc of Optiray 320, CT angiogram of the chest was pe rformed from the upper abdomen to the thoracic inlet utilizing the pulmonary embolus protocol. Images are reviewed in the axial, sagittal, and coronal planes. 3-D MIPS images are created and assessed. I V contrast was administered without complication. A dose lowering technique was utilized adhering to the principles of ALARA. The examination is degraded by motion artifact. CT DOSE: 768.15 mGy.cm FINDINGS: Thyroid: The thyroid gland is enlarged and heterogeneous. Bilateral thyroid nodules measure up to 2.4 cm. This was better assessed on previous thyroid ultrasound. Thoracic aorta: The thoracic aorta is normal in caliber and demonstrates standard 3-vessel arch anato my. No dissection is seen. Pulmonary vasculature: The pulmonary trunk is normal in caliber. There are no filling defects identif ied in main, lobar, or proximal segmental pulmonary branches to suggest pulmonary embolus. Evaluation of the peripheral branches is degraded by motion artifact. Heart: The heart is normal in size and without pericardial effusion. Lungs and pleural spaces: Evaluation of the lung parenchyma is degraded by motion artifact. There is trace left pleural effusion. No airspace consolidation is seen typical for pneumonia. Scarring/atelec tasis is present at the lung bases. The trachea and central airways are clear. Mediastinum: Scattered subcentimeter mediastinal lymph nodes are not pathologically enlarged by size criteria. Shelley: Clear. Axillae: There is no axillary lymphadenopathy. Upper abdomen: The liver appears steatotic. A small hiatal hernia is noted. Skeletal structures: The skeletal structures are osteopenic. Degenerative change is noted in the shou lders and thoracic spine. No lytic or blastic bony lesions are seen. IMPRESSION: 1. There is no evidence of pulmonary embolus in the main, lobar, or proximal segmental pulmonary [place]. 2. There is no airspace consolidation typical for pneumonia. 3. Trace left pleural effusion. 4. Multinodular goiter. 5. Additional findings as above. ACT 112: Negative or not required by law. Electronically signed by: Hal Golden M.D. 02/13/2021 5:45 PM
[2021-02-13] MEDS ORDERED: cefTRIAXone SODIUM 1,000 MG/50 ML BAG IV STA (17:54)
[2021-02-13] MEDS ORDERED: DOXYCYCLINE HYCLATE 100 MG CAP PO STA (17:54)
[2021-02-13 17:56] LABS: C Reactive Protein 9.6 mg/dl (0-0.29); Troponin I 0.155 ng/ml (0-0.045)
[2021-02-13] MEDS ORDERED: Heparin IV Adult Wt-Based Low-Dose WITH Bolus Protocol STA (17:57)
[2021-02-13 18:10] LABS: Procalcitonin < 0.05 ng/ml (0-0.5)
[2021-02-13] MEDS ORDERED: HEPARIN SOD (PORCINE) 1000 UNIT/ML IV ONE ×4 (18:12→19:30)
[2021-02-13] MEDS ORDERED: HEPARIN SODIUM/DEXTROSE 25,000 UNITS/500 ML BAG IV SCH (18:15)
[2021-02-13 18:16] LABS: Lyme Ab IgG w/WB Rflx Negative (Negative); Lyme Ab IgM w/WB Rflx Negative (Negative)
--- NOTE | 2021-02-13 18:22 | History & Physical Report ---
Date of Service February 13, 2021 Assessment & Plan (1) Chest pain: (2) Elevated troponin: Plan: - Admit to tele for observation - Concern for pericarditis versus viral cardiomyopathy with elevated CRP, checking an ESR. Initiate colchicine versus prednisone if pericarditis confirmed. - Troponin elevated at 0.155, trend x 2 more sets - Consult cardiology- discussed with Dr. Emmanuel. - EKG reviewed as above, without ST wave changes or inversions, with VA depression. -CTA negative for PE. - Check 2 D echo - PT/OT consulted - Takes baby aspirin daily, given additional 234 mg in the ER - Started on heparin drip, low dose, in the ER - will continue (3) Bronchitis: Plan: - Finished azithromycin x 5 days with prednisone pack with improvement of sx initially, but then worsened again. Will continue on ceftriaxone and doxycycline. R/o lymes, anaplasmosis negative. -Incentive spirometry, Mucinex, Tessalon Perles, sputum culture if able to produce expectorant to continue pulmonary toilet -Awaiting procalcitonin -Patient is not requiring any supplemental O2, O2 sats 95% on RA (4) Shortness of breath: Plan: - Noted as above, likely secondary to bronchitis - Will continue ceftriaxone and doxycycline as above (5) Asthma: Plan: - Hx of such, used albuterol inhaler several times within past 4 days. - Continue nebs, antibiotics. - No wheezing so no urgent need for steroids currently. On RA with O2 sats = 95% (6) Diabetes mellitus, type 2: Plan: -Hold p.o. Metformin - ISS with Accu-Cheks AC at bedtime -A1c with am labs, last was 6.4 in August. (7) Hypertension: Plan: - Continue lisinopril 20 mg daily - BP controlled (8) Osteoarthritis: Plan: - hx of such, continue MVI (9) GERD (gastroesophageal reflux disease): Plan: - Stable, continue omeprazole DVT PPx: - teds, scds, heparin drip CODE: Full code Dispo: From home, likely to remain in the hospital x 1-2 days History of Present Illness Chief Complaint: Fever, Dyspnea Primary Care Provider: Chel Hamilton, DO This is a 61 yo F with PMHx of HTN, DM II, GERD, migraine, osteoarthritis who presents with cold like symptoms, fever, and elevated troponin from doctors office. Pt developed cold like symptoms around January 25-, with cough, congestion, postnasal drip, a lot of mucus and drainage, discharge is clear and sometime yellow, as well as constant headache. Her children who also had symptoms are now improved. She represented to her PCP on 01/31/21 due to continue symptoms, and was given Rx for prednisone and a Z-pack x 5 days. Her symptoms seemed to improve but then came back with a vengeance. Last Friday 02/09, she began feeling worse with fever, dry cough, chills, sweats. Yesterday she developed a fever on and off throughout the day, which broke with tylenol. At 2:30 in the morning she awoke with substernal and left-sided chest pain which radiated up to her left jaw, cute shortness of breath and diaphoresis. Today she presented to her PCP around noon, where blood work was ordered, along with EKG, and noted to have elevated troponin. Her troponin was elevated today therefore her PCP sent her to the ER. She received her Covid vaccination in June 2020, and is negative upon admission. Her sister who is actively going through chemotherapy treatments, has caused her to be very diligent in social distancing, no recent travel, etc. She promotes wearing a mask, and reports that her family members who live in her home do as well. Allergies Allergy/AdvReac Type Severity Reaction Status Date / Time adhesive Allergy Severe skin Verified 02/13/21 18:26 irritation ciprofloxacin Allergy Intermediate RASH Verified 02/13/21 18:26 Penicillins Allergy Intermediate rash Verified 02/13/21 18:26 Sulfa (Sulfonamide Allergy Intermediate rash Verified 02/13/21 18:26 Antibiotics) Cipro Allergy Unknown RASH Verified 01/14/17 05:54 morphine AdvReac Intermediate BAD Verified 02/13/21 18:26 HEADACHE codeine AdvReac Mild CONFUSION Verified 02/13/21 18:26 oxycodone AdvReac Mild Headache Verified 02/13/21 18:26 Home Medications Medication Instructions Recorded Confirmed Type albuterol sulfate 90 mcg/actuation 2 inh INHALATION Q4H PRN 02/13/21 02/13/21 History aerosol inhaler aspirin 81 mg tablet,delayed 81 mg PO PM 02/13/21 02/13/21 History release cyanocobalamin (vitamin B-12) 1,000 mcg SUBLINGUAL PM 02/13/21 02/13/21 History 1,000 mcg sublingual tablet ferrous gluconate 324 mg (36 mg 324 mg PO DAILY 02/13/21 02/13/21 History iron) tablet fluticasone propionate 50 2 spray INTRANASAL PM 02/13/21 02/13/21 History mcg/actuation nasal spray,suspension ibuprofen 200 mg tablet 400 mg PO Q6H PRN 02/13/21 02/13/21 History lisinopril 20 mg tablet 20 mg PO PM 02/13/21 02/13/21 History lorazepam 0.5 mg tablet 0.5 mg PO HS PRN 02/13/21 02/13/21 History metformin 500 mg tablet,extended 500 mg PO PM 02/13/21 02/13/21 History release 24 hr multivitamin 1 tab PO PM 02/13/21 02/13/21 History omeprazole 40 mg capsule,delayed 40 mg PO PM 02/13/21 02/13/21 History release Past Med/Surg History Medical History (Updated 02/13/21 @ 19:21 by Natalie Dominguez PA-C) Anemia Asthma Cancer Cardiac murmur Diabetes mellitus, type 2 GERD (gastroesophageal reflux disease) History of abnormal cervical Pap smear Hypertension Migraine Osteoarthritis Surgical History History of hysterectomy History of tooth extraction History of total knee replacement Social History Smoking Status: Never smoker Second Hand Exposure: No; Hx Alcohol Use: No Hx Substance Use: No Preferred Language: Frisian Communication Ability: Effective 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 Beliefs That Will Affect Care: None Current Living Situation: Spouse Current Living Situation Comment: grandchildren Other Information That Helps Us Care for You: No Feels Safe at Home: Yes Assistive Devices: CPAP and Glasses Review of Systems Review of Systems: Constitutional: As per HPI, + fever, sweats and chills Eyes: No diplopia, no worsening or blurred vision ENT: normal hearing, no trouble swallowing, + nasal drainage, + sinus pressure Respiratory: + Dry cough, occasional yellow sputum production, no dyspnea at rest or on exertion Cardiovascular: As per HPI, currently no chest pain, tightness or palpitations Abdomen: No pain, nausea, vomiting, diarrhea or constipation Musculoskeletal: No joint pain, calf pain, swelling Neurologic: No weakness, numbness/tingling, or balance problems Psychiatric: No anxiety or depression Skin: No rash or itch Physical Exam Physical Exam: General: awake, alert, no apparent distress, obese with BMI of 39.1 Head: Normocephalic, atraumatic ENT: PERRL, EOMI, no pharyngeal exudate, mucous membranes moist Chest: Clear to auscultation, on room air, no adventitious breath sounds Cardiac: + chest tenderness on exam over right and left chest wall, regular rate and rhythm, no murmur, no JVD, normal peripheral pulses, good capillary refill Abdominal: NABS x 4 quadrants, soft, nondistended, nontender to palpation, no rebound or guarding Extremities: Normal inspection, no peripheral edema or erythema, calfs nontender to palpation Psych: Normal mood and affect Neuro: AAO x 3, strength intact bilaterally and rated 5/5, no motor deficits, speech is clear, no peripheral sensory deficits Results & Data Results & Data ([facility]) Vital Signs (Past 12 Hours) Vital Signs Temp Pulse Resp BP Pulse Ox 02/13/21 16:33 38.0 C H 87 20 135/75 95 Laboratory Results Laboratory Results - last 24 hr 02/13/21 02/13/21 02/13/21 16:41 16:41 16:41 PT 10.4 INR 1.0 Lactate Troponin I 0.155 H* C-Reactive Protein 9.60 H Procalcitonin Anaplasma Smear See Comment A. phagocytophilum DNA Lyme Disease IgG Ab Lyme Disease IgM Ab COVID-19 Eval Order SARS-CoV-2 (PCR) 02/13/21 02/13/21 02/13/21 16:41 16:41 16:41 PT INR Lactate 1.8 Troponin I C-Reactive Protein Procalcitonin < 0.05 Anaplasma Smear A. phagocytophilum DNA Pending Lyme Disease IgG Ab Negative Lyme Disease IgM Ab Negative COVID-19 Eval Order SARS-CoV-2 (PCR) 02/13/21 02/13/21 17:18 17:18 PT INR Lactate Troponin I C-Reactive Protein Procalcitonin Anaplasma Smear A. phagocytophilum DNA Lyme Disease IgG Ab Lyme Disease IgM Ab COVID-19 Eval Order Covid19 at [facility] SARS-CoV-2 (PCR) NEGATIVE Diagnostic Findings Chest CTA 02/13/21 16:44 CT ANGIOGRAM OF THE CHEST CLINICAL HISTORY: Fever. Dyspnea. Elevated d-dimer. COMPARISON STUDY: Chest x-ray dated 02/13/2021. Thyroid ultrasound dated 12/13/2019. TECHNIQUE: Following the IV administration of 118 cc of Optiray 320, CT angiogram of the chest was performed from the upper abdomen to the thoracic inlet utilizing the pulmonary embolus protocol. Images are reviewed in the axial, sagittal, and coronal planes. 3-D MIPS images are created and assessed. IV contrast was administered without complication. A dose lowering technique was utilized adhering to the principles of ALARA. The examination is degraded by motion artifact. CT DOSE: 768.15 mGy.cm FINDINGS: Thyroid: The thyroid gland is enlarged and heterogeneous. Bilateral thyroid nodules measure up to 2.4 cm. This was better assessed on previous thyroid ultrasound. Thoracic aorta: The thoracic aorta is normal in caliber and demonstrates standard 3-vessel arch anatomy. No dissection is seen. Pulmonary vasculature: The pulmonary trunk is normal in caliber. There are no filling defects identified in main, lobar, or proximal segmental pulmonary branches to suggest pulmonary embolus. Evaluation of the peripheral branches is degraded by motion artifact. Heart: The heart is normal in size and without pericardial effusion. Lungs and pleural spaces: Evaluation of the lung parenchyma is degraded by motion artifact. There is trace left pleural effusion. No airspace consolidation is seen typical for pneumonia. Scarring/atelectasis is present at the lung bases. The trachea and central airways are clear. Mediastinum: Scattered subcentimeter mediastinal lymph nodes are not pat hologically enlarged by size criteria. Shelley: Clear. Axillae: There is no axillary lymphadenopathy. Upper abdomen: The liver appears steatotic. A small hiatal hernia is noted. Skeletal structures: The skeletal structures are osteopenic. Degenerative change is noted in the shoulders and thoracic spine. No lytic or blastic bony lesions are seen. IMPRESSION: 1. There is no evidence of pulmonary embolus in the main, lobar, or proximal segmental pulmonary arteries. 2. There is no airspace consolidation typical for pneumonia. 3. Trace left pleural effusion. 4. Multinodular goiter. 5. Additional findings as above. ACT 112: Negative or not required by law. Electronically signed by: Hal Golden M.D. 02/13/2021 5:45 PM Medications Administered Home Medications Medication Instructions Recorded Confirmed albuterol sulfate 90 mcg/actuation 2 inh INHALATION Q4H PRN 02/13/21 02/13/21 aerosol inhaler aspirin 81 mg tablet,delayed 81 mg PO PM 02/13/21 02/13/21 release cyanocobalamin (vitamin B-12) 1,000 mcg SUBLINGUAL PM 02/13/21 02/13/21 1,000 mcg sublingual tablet ferrous gluconate 324 mg (36 mg 324 mg PO DAILY 02/13/21 02/13/21 iron) tablet fluticasone propionate 50 2 spray INTRANASAL PM 02/13/21 02/13/21 mcg/actuation nasal spray,suspension ibuprofen 200 mg tablet 400 mg PO Q6H PRN 02/13/21 02/13/21 lisinopril 20 mg tablet 20 mg PO PM 02/13/21 02/13/21 lorazepam 0.5 mg tablet 0.5 mg PO HS PRN 02/13/21 02/13/21 metformin 500 mg tablet,extended 500 mg PO PM 02/13/21 02/13/21 release 24 hr multivitamin 1 tab PO PM 02/13/21 02/13/21 omeprazole 40 mg capsule,delayed 40 mg PO PM 02/13/21 02/13/21 release ECG Additional Comments: 13-FEB-2021 16:39:53 [facility]-EDSTAT ROUTINE RETRIEVAL Normal sinus rhythm Possible Left atrial enlargement Borderline ECG When compared with ECG of 25-NOV-2016 14:16, Vent. rate has increased BY 38 BPM 25mm/s 10mm/mV 150Hz 9.0.9 12SL 241 CHERRI: 16 Unconfirmed Vent. rate 91 BPM VA interval 156 ms QRS duration 80 ms QT/QTc 334/410 ms P-R-T axes 70 28 47 Code Status & VTE Plan Code Status Full code discussed with the patient at bedside Supervising Physician Co-Signing Physician Notes Patient is a 61-year-old female with history of hypertension, diabetes mellitus, GERD, asthma and other medical problems presents with history of fever, cough, chest pain associated with chills, diaphoresis. Reports having contact with sick grandchildren with similar symptoms. Admits to completing a course of Z- Herber and prednisone as outpatient. Patient was seen by her PCP for ongoing symptoms who referred to ED for further evaluation. Patient states having left- sided chest pain which woke her up from sleep last night. She was found to have elevated D-dimer and elevated troponin levels on blood work as outpatient and was sent to ED. please review HPI for complete details of presentation. She was noted to have elevated D-dimer 880. Hyperglycemia 207, troponin elevation 0.127, EKG suggestive of VA depression, QTC 410. Patient is started on IV hepa rin while in ED for possible NSTEMI. ESR and CRP are elevated. On exam patient is obese, no apparent distress, normocephalic atraumatic, lungs are clear to auscultation, normal breath sounds, S1-S2, no murmur, trace pedal edema, abdomen soft, nontender, normal bowel sounds, alert, awake, oriented, grossly no focal deficits. Patient is admitted for management of acute bronchitis, chest pain rule out ACS DD: NSTEMI, pericarditis. CTA showed no acute PE, airspace consolidation, but showed trace left pleural effusion. Agree with starting on Rocephin, doxycycline. Blood cultures obtained. Continue IV heparin for now. Trend cardiac enzymes, check resting echo, consult cardiology. Continue aspirin. Check lipid panel, A1c. Keep n.p.o. after midnight. Noted elevated D-dimer. Will check venous Dopplers to rule out DVT for completeness. Continue insulin therapy for diabetes management. TSH within normal limits. Further management of multinodular goiter as outpatient. I personally reviewed the record. Patient is interviewed and examined at bedside. Patient's care is coordinated with Natalie Dominguez PA-C. Please refer to the documentation above for details of patient's presentation and for discussion of other issues.
[2021-02-13 20:26] LABS: Appearance Urine Clear (Clear); Bacteria Urine Automated 4+ (Negative); Bilirubin Urine Negative (Negative); Blood Urine Negative (Negative); Color Urine Yellow; Glucose Urine UA Negative (Negative); Ketones Urine Negative (Negative); Leukocyte Esterase Urine Negative (Negative); Nitrite Urine Positive (Negative); Protein Urine Negative (Negative); RBC Urine Automated 0-4 /hpf (0-4); Specific Gravity Urine 1.042 (1.000-1.030); Urobilinogen Urine Negative (Negative); pH Urine 6.5 (4.5-7.5)
[2021-02-13] MEDS ORDERED: DEXTROSE 50% 50 ML SYRINGE IV PRN (21:07)
[2021-02-13] MEDS ORDERED: GLUCOSE 40% GEL 15 GM TUBE PO PRN (21:07)
[2021-02-13] MEDS ORDERED: CARBOHYDRATES FOR HYPOGLYCEMIA PO PRN (21:07)
[2021-02-13] MEDS ORDERED: GLUCOSE 10 TABS/TUBE PO PRN (21:07)
[2021-02-13] MEDS ORDERED: GLUCAGON FOR INJ 1 MG VIAL SQ PRN (21:07)
[2021-02-13] MEDS ORDERED: ONDANSETRON INJ 2 MG/ML 2 ML VIAL IV PRN (21:07)
[2021-02-13] MEDS ORDERED: ACETAMINOPHEN 325 MG TAB PO PRN (21:07)
[2021-02-13] MEDS ORDERED: ALBUT/IPRATROP 3MG/0.5MG NEB 3 ML VIAL ONE (21:41)
[2021-02-13] MEDS: ALBUT/IPRATROP 3MG/0.5MG NEB 3 ML VIAL NEB SCH (22:00)
[2021-02-13] MEDS: guaiFENesin 600 MG TABCR PO SCH (22:34)
[2021-02-13] MEDS: ASPIRIN 81 MG ECTAB PO SCH (22:35)
[2021-02-13] MEDS: FLUTICASONE PROPIONATE NA SPR 16 GM BTL SCH (22:35)
[2021-02-13] MEDS: PANTOprazole 40 MG TAB PO SCH (22:36)
[2021-02-13] MEDS: MULTIVITAMIN TAB PO SCH (22:36)
[2021-02-13] MEDS: lisinopril 20 MG TAB PO SCH (22:36)
[2021-02-13] MEDS: BENZONATATE 100 MG CAPSULE PO SCH (22:36)
[2021-02-13] MEDS: CYANOCOBALAMIN 500 MCG TABLET (VITAMIN B-12) PO SCH (22:37)
[2021-02-13] MEDS: INSULIN ASPART 100 UNITS/ML 3 ML PEN SC SCH (22:37)
[2021-02-13 23:47] LABS: Thyroid Stimulating Hormone 0.154 uIu/ml (0.300-4.500); Troponin I 0.42 ng/ml (0-0.045)
[2021-02-14 00:07] LABS: T4 Free Thyroxine 1.67 ng/dl (0.8-1.6)
[2021-02-14 01:42] LABS: Hematocrit (blood only) 36.3 % (37-47); Hemoglobin 12.1 g/dL (12.0-16.0); Mean Corpuscular Hemoglobin 27.6 pg (25-34); Mean Corpuscular Hgb Conc 33.3 g/dL (32-36); Mean Corpuscular Volume 82.9 fL (80-100); Mean Platelet Volume 10.9 fL (7.4-10.4); Platelet Count 160 K/uL (130-400); RDW Coefficient of Variation 13.9 % (11.5-14.5); RDW Standard Deviation 41.9 fL (36.4-46.3); Red Blood Count 4.38 M/uL (4.2-5.4); White Blood Count 9.03 K/uL (4.8-10.8)
[2021-02-14 01:59] LABS: Partial Thromboplastin Ratio 1.2; Partial Thromboplastin Time 31.3 Seconds (21.0-31.0); Phosphorus 3.8 mg/dl (2.5-4.9)
[2021-02-14] MEDS ORDERED: HEPARIN SOD (PORCINE) 1000 UNIT/ML IV ONE (03:00)
[2021-02-14] MEDS: ALBUT/IPRATROP 3MG/0.5MG NEB 3 ML VIAL NEB SCH ×6 (03:03→22:58)
--- NOTE | 2021-02-14 06:39 | Ultrasound Report ---
BILATERAL LOWER EXTREMITY VENOUS DOPPLER CLINICAL HISTORY: Elevated D dimer COMPARISON STUDY: Left lower extremity venous Doppler October 01, 2009. TECHNIQUE: Sonography of the deep venous system of the bilateral lower extremities was performed. Co mpression and augmentation were evaluated. FINDINGS: The bilateral common femoral, superficial femoral and popliteal veins were compressible. A ugmentation was normal. Flow was shown within the deep calf vessels although the calf vessels were egan boptimally assessed on this exam. There is a 4.9 x 1.9 x 1.9 cm left popliteal fossa fluid collection . IMPRESSION: 1. No evidence of deep venous thrombus within the bilateral lower extremities. 2. 4.9 x 1.9 x 1.9 cm left popliteal fossa cyst. ACT 112: Negative or not required by law. Electronically signed by: Ashakn Fernandez M.D. 02/14/2021 6:37 AM
[2021-02-14 06:41] LABS: Estimated Average Glucose 151 mg/dl; Hemoglobin A1C 6.9 % (4.5-5.6)
[2021-02-14 06:56] LABS: Albumin Level 2.9 gm/dl (3.4-5.0); BUN Creatinine Ratio 14.5 (10-20); Calcium 8.7 mg/dl (8.5-10.1); Creatinine Clr Calc Pharmacy 122.8 ml/min; Est GFR (African American) 110.1 ml/min; Potassium 3.8 mmol/L (3.5-5.1)
[2021-02-14 07:06] LABS: Albumin Globulin Ratio 0.8 (0.9-2); Bilirubin,Total 0.6 mg/dl (0.2-1); Globulin 3.5 gm/dl (2.5-4.0); Total Protein 6.4 gm/dl (6.4-8.2); Troponin I 0.252 ng/ml (0-0.045)
[2021-02-14] MEDS: BENZONATATE 100 MG CAPSULE PO SCH ×3 (08:33→20:06)
[2021-02-14] MEDS: INSULIN ASPART 100 UNITS/ML 3 ML PEN SC SCH ×4 (08:33→20:14)
[2021-02-14] MEDS: guaiFENesin 600 MG TABCR PO SCH ×2 (08:34→20:05)
[2021-02-14] MEDS ORDERED: DOXYCYCLINE HYCLATE 100 MG CAP PO SCH (09:00)
--- NOTE | 2021-02-14 09:01 | Electrocardiogram Report ---
Test Reason : Blood Pressure : / mmHG Vent. Rate : 091 BPM Atrial Rate : 091 BPM P-R Int : 156 ms QRS Dur : 080 ms QT Int : 334 ms P-R-T Axes : 070 028 047 degrees QTc Int : 410 ms Normal sinus rhythm Possible Left atrial enlargement Borderline ECG When compared with ECG of 25-NOV-2016 14:16, Vent. rate has increased BY 38 BPM Otherwise no significant change Confirmed by Nikunj Quintero ([id number]) on 02/14/2021 9:01:09 AM Referred By: REFERRED SELF Confirmed By:Nikunj Quintero
--- NOTE | 2021-02-14 09:18 | Electrocardiogram Report ---
Test Reason : Blood Pressure : / mmHG Vent. Rate : 063 BPM Atrial Rate : 063 BPM P-R Int : 158 ms QRS Dur : 094 ms QT Int : 426 ms P-R-T Axes : 069 048 057 degrees QTc Int : 435 ms Normal sinus rhythm Possible Acute pericarditis Abnormal ECG When compared with ECG of 13-FEB-2021 16:39, ST elevation in multiple leads more pronounced Confirmed by Nikunj Quintero ([id number]) on 02/14/2021 9:18:21 AM Referred By: REFERRED SELF Confirmed By:Nikunj Quintero
[2021-02-14 10:23] LABS: Partial Thromboplastin Ratio 1.2; Partial Thromboplastin Time 30.7 Seconds (21.0-31.0)
--- NOTE | 2021-02-14 11:22 | Cardiology Consultation ---
Date of Consultation February 14, 2021 Assessment & Plan (1) Pericarditis: (2) Elevated troponin: At present her clinical symptoms and EKG findings are consistent with pericarditis. Erythrocyte sedimentation rate performed yesterday is mildly elevated at 47 mm/h, and her C-reactive protein is mildly elevated at 9.6 mg/dL. The mild elevation of the troponin suggest perhaps a myocarditis component with a mild relatively flat elevation which is already trending down. Her echocardiogram however reveals no wall motion abnormalities and normal LVEF. At present, she does not have ongoing symptoms to suggest that she is having an ST segment elevation myocardial infarction. EKG reveals diffuse mild ST elevation that is certainly new compared to her previous tracing performed back in 2017 prior to her elective knee replacement, and has become more prominent on serial tracings when the tracing from yesterday as compared to today. We will discontinue unfractionated heparin and will observe her for symptoms of angina, as she does have risk factors of course for underlying coronary heart disease. Continue aspirin for completeness. Advance diet as no acute procedure planned at present. Proceed with a course of colchicine, 0.6 mg twice daily start. With regards to anti-inflammatory medication, will provide a one-time dose of Solu-Medrol 20 mg, and will proceed with a slow low-dose tapering dose of prednisone starting at 20 mg, and likely working down to 2.5 mg every 3-week interval. Given her age, history of diabetes and hypertension, treatment of lisinopril, and recent course of IV contrast, I think it is most prudent to proceed with prednisone rather than a nonsteroidal anti-inflammatory. Lovenox 40 mg subcutaneous daily to start tomorrow for DVT prophylaxis. A repeat EKG and troponin level have been requested tomorrow. History of Present Illness Attending Physician: Mary Chilel MD History of Present Illness Yaneth Artis is a 61 year old female seen in cardiology consultation per the request of Shelby Dominguez PA-C of the [facility] for the evaluation of chest pain and mild troponin I elevation. The patient has a history of type 2 diabetes mellitus, she is overweight, and has a history of hypertension. Her LDL cholesterol is well controlled with measurement this morning of 62 mg/dL, and she is not on statin therapy. She states that her recent illness dates back to approximately January 25 when her grandchildren returned from scalp camp with colds. Shortly thereafter the patient developed cold symptoms typical of her annual bronchitis episodes initially with a productive cough, that had progressed to a dry cough. Second week in January, she had been seen by primary care and had a course of azithromycin and a 5-day course of prednisone. That week she had had on and off again fever type episodes. 3 days ago on Wednesday night, she still had a significant dry, barking, cough worse when she would try to lie flat. She attempted to sleep in a recliner utilizing her CPAP, and woke up early Wednesday with a pain over her left lateral ribs, left chest, that radiated to her shoulder and even into her left neck. She sought treatment with her primary care provider, due to concerns of an elevated troponin and her symptoms she was subsequently referred to the emergency room. At the time my assessment in room 216, the patient was receiving a nebulizer treatment. No cough was examined. She was in no distress, exhibiting no chest discomfort. She noted pain that was reproduced when I palpated her left costal margin, and also with deep inspiration. Work-up thus far has included a CT angiogram with no significant pericardial effusion, no pulmonary embolism, no infiltrates to suggest significant pneumonia. Troponin I has been performed on 4 subsequent occasions, with measurements of 0.127, 0.155, 0.42, and 0.252 NG per milliliter with most recent measurement of 0.52 NG per mL having performed at 6 AM. Erythrocyte sedimentation rate performed yesterday is mildly elevated at 47 mm/h, and her C-reactive protein is mildly elevated at 9.6 mg/dL. EKG performed yesterday afternoon at 1639 and reviewed independently reveals normal sinus rhythm at 91 bpm with subtle MN depression and subtle diffuse ST elevation.A repeat EKG was performed this morning with more evident 1 to [address] elevation noted, consistent with pericarditis. Echocardiogram performed this morning revealed no significant pericardial effusion, normal LV wall motion, normal LVEF of 55 to 60%. Family History: She has a sister with a history of pancreatic carcinoma who is currently undergoing chemotherapy. 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 [employer] Allergies Allergy/AdvReac Type Severity Reaction Status Date / Time adhesive Allergy Severe skin Verified 02/13/21 18:26 irritation ciprofloxacin Allergy Intermediate RASH Verified 02/13/21 18:26 Penicillins Allergy Intermediate rash Verified 02/13/21 18:26 Sulfa (Sulfonamide Allergy Intermediate rash Verified 02/13/21 18:26 Antibiotics) Cipro Allergy Unknown RASH Verified 01/14/17 05:54 morphine AdvReac Intermediate BAD Verified 02/13/21 18:26 HEADACHE codeine AdvReac Mild CONFUSION Verified 02/13/21 18:26 oxycodone AdvReac Mild Headache Verified 02/13/21 18:26 Home Medications Medication Instructions Recorded Confirmed Type albuterol sulfate 90 mcg/actuation 2 inh INHALATION Q4H PRN 02/13/21 02/13/21 History aerosol inhaler aspirin 81 mg tablet,delayed 81 mg PO PM 02/13/21 02/13/21 History release cyanocobalamin (vitamin B-12) 1,000 mcg SUBLINGUAL PM 02/13/21 02/13/21 History 1,000 mcg sublingual tablet ferrous gluconate 324 mg (36 mg 324 mg PO DAILY 02/13/21 02/13/21 History iron) tablet fluticasone propionate 50 2 spray INTRANASAL PM 02/13/21 02/13/21 History mcg/actuation nasal spray,suspension ibuprofen 200 mg tablet 400 mg PO Q6H PRN 02/13/21 02/13/21 History lisinopril 20 mg tablet 20 mg PO PM 02/13/21 02/13/21 History lorazepam 0.5 mg tablet 0.5 mg PO HS PRN 02/13/21 02/13/21 History metformin 500 mg tablet,extended 500 mg PO PM 02/13/21 02/13/21 History release 24 hr multivitamin 1 tab PO PM 02/13/21 02/13/21 History omeprazole 40 mg capsule,delayed 40 mg PO PM 02/13/21 02/13/21 History release Patient History Medical History Anemia Asthma Cancer Cardiac murmur Diabetes mellitus, type 2 GERD (gastroesophageal reflux disease) History of abnormal cervical Pap smear Hypertension Migraine Osteoarthritis Surgical History History of hysterectomy History of tooth extraction History of total knee replacement Social History Smoking Status: Never smoker Second Hand Exposure: No; Hx Alcohol Use: No Hx Substance Use: No Preferred Language: Greek Communication Ability: Effective Technology Auditor Required: No Beliefs That Will Affect Care: None Current Living Situation: Spouse Current Living Situation Comment: grandchildren Other Information That Helps Us Care for You: No Feels Safe at Home: Yes Assistive Devices: None Review of Systems Review of Systems: All systems reviewed & are unremarkable except as noted in HPI & below Physical Exam Physical Exam: Temp Pulse Resp BP Pulse Ox 36.8 C 64 18 131/78 96 02/14/21 07:55 02/14/21 10:43 02/14/21 10:43 02/14/21 07:55 02/14/21 10:43 Constitutional: WD/WN, vitals as above Neck: trachea midline, no thyromegaly Respiratory: normal respiratory effort, lungs clear to auscultation Cardiovascular: RRR, no murmur, no edema Gastrointestinal (Abdomen): normal bowel sounds, soft, nontender, no hepatosplenomegaly Skin: no rashes, warm and dry Neurologic: PERRL, EOMI, accommodation nl, no face palsy, no dysarthria Psychiatric: A+Ox3, euthymic affect Results & Data ([facility]) Vital Signs (Past 12 Hours) Vital Signs Temp Pulse Pulse Resp BP Pulse Ox 02/14/21 10:43 64 18 96 02/14/21 08:55 62 02/14/21 07:55 36.8 C 70 18 131/78 95 02/14/21 07:08 64 18 97 02/14/21 03:04 62 18 97 02/14/21 02:45 36.2 C L 67 18 125/63 94 Laboratory Results Cardiac Enzymes 02/13/21 02/13/21 02/14/21 Range/Units 16:41 22:34 06:01 AST 18 (15-37) U/L Troponin I 0.155 H* 0.420 H* 0.252 H* (0-0.045) ng/ml Coagulation 02/13/21 02/14/21 02/14/21 Range/Units 16:41 01:23 09:43 PT 10.4 (9.0-12.0) Seconds APTT 31.3 H 30.7 (21.0-31.0) Seconds Lipids 02/14/21 Range/Units 06:01 Triglycerides 103 (0-150) mg/dl Cholesterol 127 (0-200) mg/dl HDL Cholesterol 44 mg/dl Cholesterol/HDL Ratio 3 CBC 02/14/21 Range/Units 01:23 WBC 9.03 (4.8-10.8) K/uL RBC 4.38 (4.2-5.4) M/uL Hgb 12.1 (12.0-16.0) g/dL Hct 36.3 L (37-47) % Plt Count 160 (130-400) K/uL Comprehensive Metabolic Panel 02/14/21 Range/Units 06:01 Sodium 139 (136-145) mmol/L Potassium 3.8 (3.5-5.1) mmol/L Chloride 107 (98-107) mmol/L Carbon Dioxide 28 (21-32) mmol/L BUN 9 (7-18) mg/dl Creatinine 0.64 (0.6-1.2) mg/dl Glucose 151 H (70-99) mg/dl Calcium 8.7 (8.5-10.1) mg/dl AST 18 (15-37) U/L ALT 33 (12-78) U/L Alkaline Phosphatase 69 (45-117) U/L Total Protein 6.4 (6.4-8.2) gm/dl Albumin 2.9 L (3.4-5.0) gm/dl Intake and Output 02/13/21 02/14/21 02/14/21 22:59 06:59 14:59 Intake Total 670 / 828 158 / 828 146.05 / 146.05 Output Total 200 / 800 600 / 800 Balance 470 / 28 -442 / 28 146.05 / 146.05 Intake: IV 550 / 708 158 / 708 146.05 / 146.05 Heparin Sodium/Dextrose 25,000 158 / 158 146.05 / 146.05 units In 500 ml @ 1,000 UNITS/ HR 20 mls/hr IV .Q24H KAYLENE Rx#: [id number] Sodium Chloride 0.9% 500 ml @ 500 / 500 999 mls/hr IV .Q31M STA Rx#: [id number] cefTRIAXone SODIUM 1,000 mg In 50 / 50 50 ml @ 100 mls/hr IV NOW STA Rx#:[id number] Oral 120 / 120 Output: Urine 200 / 800 600 / 800 Other: Other Intake Source NPO Weight 118.5 kg Weight Measurement Method Chair Scale
[2021-02-14] MEDS ORDERED: methylPREDNISolone 20 MG in SYRINGE 0 ML IV ONE (11:45)
[2021-02-14] MEDS: COLCHICINE 0.6 MG TAB PO SCH ×2 (12:38→20:05)
--- NOTE | 2021-02-14 14:34 | Hospitalist Progress Note ---
Date of Service February 14, 2021 Assessment & Plan (1) Chest pain: Plan: Has been having cough for the last few days No definite chest pain but does have discomfort Initial EKG noted concave ST elevation/ME depression suggestive of acute pericarditis CTA was negative for any pulmonary embolism Troponin was minimally elevated but serial troponin tests were unremarkable She was initially put on intravenous heparin with a suspicion for acute NE and that was discontinued this morning Appreciate cardiology input and recommendation Echo has been unremarkable for any wall motion abnormalities Has been started on oral colchicine and prednisone Denies any more chest pain since admission but the cough is persisting without any wheezing and/or shortness of breath Acute pericarditis Started on oral colchicine and prednisone No NSAID's (2) Elevated troponin: Plan: - Concern for pericarditis versus viral cardiomyopathy with elevated CRP, checking an ESR. Initiate colchicine versus prednisone if pericarditis confirmed. - Troponin elevated at 0.155, trend x 2 more sets - Consult cardiology- discussed with Dr. Emmanuel. - EKG reviewed as above, without ST wave changes or inversions, with ME depress ion. -CTA negative for PE. - Takes baby aspirin daily, given additional 234 mg in the ER (3) Bronchitis: Plan: - Finished azithromycin x 5 days with prednisone pack with improvement of sx initially, but then worsened again. Will continue on ceftriaxone and doxycycline. R/o lymes, anaplasmosis negative. -Incentive spirometry, Mucinex, Tessalon Perles, sputum culture if able to produce expectorant to continue pulmonary toilet -Awaiting procalcitonin-negative -Antibiotics have been discontinued -Advised to continue with ProAir inhalation as needed (4) Shortness of breath: Plan: - Noted as above, likely secondary to bronchitis -No shortness of breath at rest and does not require any oxygen -History of asthma without any exacerbation -Continue as needed inhalers (5) Asthma: Plan: - Hx of such, used albuterol inhaler several times within past 4 days. - Continue nebs, antibiotics. - No wheezing so no urgent need for steroids currently. On RA with O2 sats = 95% -Antibiotics will be discontinued (6) Diabetes mellitus, type 2: Plan: -Hold p.o. Metformin - ISS with Accu-Cheks AC at bedtime -A1c with am labs, last was 6.4 in August. (7) Hypertension: Plan: - Continue lisinopril 20 mg daily - BP controlled (8) Osteoarthritis: Plan: - hx of such, continue MVI (9) GERD (gastroesophageal reflux disease): Plan: - Stable, continue omeprazole DVT PPx: - teds, scds, heparin drip CODE: Full code Dispo: From home, likely to remain in the hospital x 1-2 days Admission and Anticipated Discharge Date Admission Date: February 13, 2021 Subjective 02/14/2021 The patient was seen and examined in telemetry unit She was admitted with ongoing cough and fever as an outpatient with some chest discomfort Has had concave ST elevation on initial EKG with mildly increased troponin She still has cough but denies any chest discomfort Review of Systems Review of Systems: All systems reviewed and are unremarkable except as noted below Respiratory: + cough; no dyspnea Cardiovascular: no chest pain and no palpitations Physical Exam Physical Exam: Lying in bed comfortably Constitutional: well developed and well nourished; not ill appearing Eyes: PERRL, conjunctivae normal, anicteric sclerae Neck: trachea midline, no thyromegaly Respiratory: normal respiratory effort; no respiratory distress Auscultation: lungs clear to auscultation bilaterally Cardiovascular: Rate/Rhythm: regular rate Heart Sounds: normal S1 and normal S2; no murmur and no cardiac rub Gastrointestinal (Abdomen): normal bowel sounds, soft, nontender, no hepatosplenomegaly Musculoskeletal: No acute arthritis in any joint Neurologic: Alert, awake and oriented x3. No focal sensory or motor deficit appreciated Psychiatric: A+Ox3, euthymic affect Lymphatic: no cervical or axillary lymphadenopathy Results & Data Results & Data ([facility]) Vital Signs (Past 12 Hours) Vital Signs Temp Pulse Pulse Resp BP Pulse Ox 02/14/21 11:35 36.7 C 71 18 122/81 97 02/14/21 10:43 64 18 96 02/14/21 08:55 62 02/14/21 07:55 36.8 C 70 18 131/78 95 02/14/21 07:08 64 18 97 02/14/21 03:04 62 18 97 02/14/21 02:45 36.2 C L 67 18 125/63 94 Laboratory Results Short CBC 02/14/21 Range/Units 01:23 WBC 9.03 (4.8-10.8) K/uL Hgb 12.1 (12.0-16.0) g/dL Hct 36.3 L (37-47) % Plt Count 160 (130-400) K/uL BMP 02/14/21 06:01 Sodium 139 Potassium 3.8 Chloride 107 Carbon Dioxide 28 BUN 9 Creatinine 0.64 Glucose 151 H Calcium 8.7 Cardiac Enzymes 02/13/21 02/13/21 02/14/21 Range/Units 16:41 22:34 06:01 Troponin I 0.155 H* 0.420 H* 0.252 H* (0-0.045) ng/ml Liver Function 02/14/21 Range/Units 06:01 Total Bilirubin 0.6 (0.2-1) mg/dl AST 18 (15-37) U/L ALT 33 (12-78) U/L Alkaline Phosphatase 69 (45-117) U/L Albumin 2.9 L (3.4-5.0) gm/dl Urine 02/13/21 Range/Units 18:19 Urine Color Yellow Urine Appearance Clear (Clear) Urine pH 6.5 (4.5-7.5) Ur Specific [place] 1.042 H (1.000-1.030) Urine Protein Negative (Negative) Urine Glucose (UA) Negative (Negative) Medications Administered Current Inpatient Medications Acetaminophen (Acetaminophen 325 Mg Tab) 650 mg PO Q4H PRN PRN Reason: Moderate Pain Stop: 03/15/21 21:06 Albuterol (Albut/Ipratrop 3mg/0.5mg Neb 3 Ml Vial) 3 ml NEB Q4R KAYLENE Stop: 03/15/21 22:59 Last Admin: 02/14/21 14:26 Dose: 3 ml Documented by: Aspirin (Aspirin 81 Mg Ectab) 81 mg PO PM KAYLENE Stop: 03/15/21 21:29 Last Admin: 02/13/21 22:35 Dose: 81 mg Documented by: Benzonatate (Benzonatate 100 Mg Capsule) 100 mg PO TID KAYLENE Stop: 03/15/21 21:29 Last Admin: 02/14/21 12:38 Dose: 100 mg Documented by: Colchicine (Colchicine 0.6 Mg Tab) 0.6 mg PO BID KAYLENE Stop: 03/16/21 11:14 Last Admin: 02/14/21 12:38 Dose: 0.6 mg Documented by: Cyanocobalamin (Cyanocobalamin 500 Mcg Tablet (Vitamin B-12)) 1,000 mcg PO PM KAYLENE Stop: 03/15/21 21:29 Last Admin: 02/13/21 22:37 Dose: 1,000 mcg Documented by: Dextrose (Dextrose 50% 50 Ml Syringe) 25 - 50 ml IV UD PRN; Protocol PRN Reason: Hypoglycemia Protocol Stop: 03/15/21 21:06 Doxycycline Hyclate (Doxycycline Hyclate 100 Mg Cap) 100 mg PO BID KAYLENE Stop: 02/24/21 08:59 Last Admin: 02/14/21 08:34 Dose: 100 mg Documented by: Enoxaparin Sodium (Enoxaparin Inj 40 Mg/0.4 Ml Syr) 40 mg SQ QAM KAYLENE Stop: 03/17/21 08:59 Fluticasone Propionate (Fluticasone Propionate Na Spr 16 Gm Btl) 2 sprays NA PM KAYLENE Stop: 03/15/21 21:29 Last Admin: 02/13/21 22:35 Dose: 2 sprays Documented by: Glucagon (Glucagon For Inj 1 Mg Vial) 1 mg SQ UD PRN; Protocol PRN Reason: Hypoglycemia Protocol Stop: 03/15/21 21:06 Glucose (Glucose 10 Tabs/Tube) 4 - 8 tabs PO UD PRN; Protocol PRN Reason: Hypoglycemia Protocol Stop: 03/15/21 21:06 Glucose (Glucose 40% Gel 15 Gm Tube) 15 - 30 gm PO UD PRN; Protocol PRN Reason: Hypoglycemia Protocol Stop: 03/15/21 21:06 Guaifenesin (Guaifenesin 600 Mg Tabcr) 1,200 mg PO Q12 KAYLENE Stop: 03/15/21 21:29 Last Admin: 02/14/21 08:34 Dose: 1,200 mg Documented by: Heparin Sodium/Dextrose (Heparin Sodium/Dextrose) 25,000 units in 500 mls @ 0 mls/hr IV .Q0M [facility]; Protocol Stop: 03/15/21 18:14 Last Titration: 02/14/21 09:56 Dose: 0 units/hr, 0 mls/hr Documented by: Ceftriaxone Sodium 2,000 mg/ (Dextrose) 70 mls @ 140 mls/hr IV Q24H [facility]; [place] col Stop: 02/24/21 18:59 Insulin Aspart (Insulin Aspart 100 Units/Ml 3 Ml Pen) 0 units SC ACHS KAYLENE Stop: 03/15/21 21:29 Last Admin: 02/14/21 12:09 Dose: Not Given Documented by: Lisinopril (Lisinopril 20 Mg Tab) 20 mg PO PM KAYLENE Stop: 03/15/21 21:29 Last Admin: 02/13/21 22:36 Dose: 20 mg Documented by: Miscellaneous (Carbohydrates For Hypoglycemia ) 15 - 30 gm PO UD PRN PRN Reason: Hypoglycemia Protocol Stop: 03/15/21 21:06 Multivitamins (Multivitamin Tab) 1 tab PO PM KAYLENE Stop: 03/15/21 21:29 Last Admin: 02/13/21 22:36 Dose: 1 tab Documented by: Ondansetron HCl (Ondansetron Inj 2 Mg/Ml 2 Ml Vial) 4 mg IV Q4H PRN PRN Reason: Nausea And Vomiting Stop: 03/15/21 21:06 Pantoprazole Sodium (Pantoprazole 40 Mg Tab) 40 mg PO PM KAYLENE; Protocol Stop: 03/15/21 21:29 Last Admin: 02/13/21 22:36 Dose: 40 mg Documented by: Prednisone (Prednisone 20 Mg Tab) 20 mg PO DAILY [facility] Stop: 03/17/21 08:59
[2021-02-14] MEDS ORDERED: cefTRIAXone SODIUM 2,000 MG in DEXTROSE 5% 50 ML IV SCH (19:00)
[2021-02-14] MEDS: ASPIRIN 81 MG ECTAB PO SCH (20:06)
[2021-02-14] MEDS: MULTIVITAMIN TAB PO SCH (20:06)
[2021-02-14] MEDS: PANTOprazole 40 MG TAB PO SCH (20:06)
[2021-02-14] MEDS: lisinopril 20 MG TAB PO SCH (20:06)
[2021-02-14] MEDS: CYANOCOBALAMIN 500 MCG TABLET (VITAMIN B-12) PO SCH (20:07)
[2021-02-14] MEDS: FLUTICASONE PROPIONATE NA SPR 16 GM BTL SCH (20:07)
[2021-02-15] MEDS: ALBUT/IPRATROP 3MG/0.5MG NEB 3 ML VIAL NEB SCH ×2 (02:46→07:00)
[2021-02-15 06:34] LABS: Basophils # (auto) 0.02 K/uL (0-0.2); Basophils % (auto) 0.3 %; Eosinophils # (auto) 0.13 K/uL (0-0.5); Eosinophils % (auto) 1.8 %; Hematocrit (blood only) 38.9 % (37-47); Hemoglobin 12.6 g/dL (12.0-16.0); Immature Granulocytes # (auto) 0.01 K/uL (0.00-0.02); Immature Granulocytes % (auto) 0.1 %; Lymphocytes % (auto) 17.5 %; Mean Corpuscular Hemoglobin 26.9 pg (25-34); Mean Corpuscular Hgb Conc 32.4 g/dL (32-36); Mean Corpuscular Volume 82.9 fL (80-100); Mean Platelet Volume 10.9 fL (7.4-10.4); Monocytes # (auto) 0.61 K/uL (0.11-0.59); Monocytes % (auto) 8.2 %; Neutrophils # (auto) 5.34 K/uL (1.4-6.5); Neutrophils % (auto) 72.1 %; Platelet Count 205 K/uL (130-400); RDW Coefficient of Variation 13.8 % (11.5-14.5); RDW Standard Deviation 41.6 fL (36.4-46.3); Red Blood Count 4.69 M/uL (4.2-5.4); White Blood Count 7.41 K/uL (4.8-10.8)
[2021-02-15 07:09] LABS: Albumin Level 2.8 gm/dl (3.4-5.0); BUN Creatinine Ratio 23.6 (10-20); Calcium 8.8 mg/dl (8.5-10.1); Creatinine Clr Calc Pharmacy 121.4 ml/min; Est GFR (African American) 110.1 ml/min; Magnesium 2.3 mg/dl (1.8-2.4); Potassium 3.9 mmol/L (3.5-5.1)
[2021-02-15 07:24] LABS: Albumin Globulin Ratio 0.7 (0.9-2); Bilirubin,Total 0.4 mg/dl (0.2-1); Globulin 3.8 gm/dl (2.5-4.0); Total Protein 6.6 gm/dl (6.4-8.2); Troponin I 0.201 ng/ml (0-0.045)
[2021-02-15] MEDS: COLCHICINE 0.6 MG TAB PO SCH (08:08)
[2021-02-15] MEDS: guaiFENesin 600 MG TABCR PO SCH (08:08)
[2021-02-15] MEDS: BENZONATATE 100 MG CAPSULE PO SCH ×2 (08:08→12:04)
[2021-02-15] MEDS: INSULIN ASPART 100 UNITS/ML 3 ML PEN SC SCH ×2 (08:12→12:05)
[2021-02-15] MEDS ORDERED: predniSONE 20 MG TAB PO SCH (09:00)
[2021-02-15] MEDS ORDERED: ENOXAPARIN INJ 40 MG/0.4 ML SYR SQ SCH (09:00)
--- NOTE | 2021-02-15 09:56 | Electrocardiogram Report ---
Test Reason : Blood Pressure : / mmHG Vent. Rate : 072 BPM Atrial Rate : 072 BPM P-R Int : 162 ms QRS Dur : 082 ms QT Int : 388 ms P-R-T Axes : 069 028 031 degrees QTc Int : 424 ms Normal sinus rhythm Possible Left atrial enlargement Nonspecific T wave abnormality Abnormal ECG When compared with ECG of 14-FEB-2021 05:51, ST no longer elevated in Anterior leads Nonspecific T wave abnormality now evident in Inferior leads Nonspecific T wave abnormality now evident in Anterolateral leads Confirmed by Clement Velasquez ([id number]) on 02/15/2021 9:56:09 AM Referred By: REFERRED SELF Confirmed By:Clement Velasquez
[2021-02-15] MEDS ORDERED: ALBUT/IPRATROP 3MG/0.5MG NEB 3 ML VIAL NEB PRN (10:25)
[2021-02-15] MEDS ORDERED: cephALEXin 500 MG CAP PO SCH (10:45)
--- NOTE | 2021-02-15 11:07 | Hospitalist Progress Note ---
Date of Service February 15, 2021 Assessment & Plan (1) Chest pain: Plan: Has been having cough for the last few days No definite chest pain but does have discomfort Initial EKG noted concave ST elevation/[place] depression suggestive of acute pericarditis CTA was negative for any pulmonary embolism Troponin was minimally elevated but serial troponin tests were unremarkable She was initially put on intravenous heparin with a suspicion for acute [place] and that was discontinued this morning Appreciate cardiology input and recommendation Echo has been unremarkable for any wall motion abnormalities Has been started on oral colchicine and prednisone Denies any more chest pain since admission but the cough is persisting without any wheezing and/or shortness of breath Acute pericarditis Started on oral colchicine and prednisone No NSAID's Denies any more chest discomfort or pain Troponin remains mildly elevated at 0.2 Acute UTI Secondary to E. coli Received 1 dose of ceftriaxone We will start oral Keflex (2) Elevated troponin: Plan: - Concern for pericarditis versus viral cardiomyopathy with elevated CRP, checking an ESR. Initiate colchicine versus prednisone if pericarditis confirmed. - Troponin elevated at 0.155, trend x 2 more sets - Consult cardiology- discussed with Dr. Emmanuel. - EKG reviewed as above, without ST wave changes or inversions, with [place] depression. -CTA negative for PE. - Takes baby aspirin daily, given additional 234 mg in the ER (3) Bronchitis: Plan: - Finished azithromycin x 5 days with prednisone pack with improvement of sx initially, but then worsened again. Will continue on ceftriaxone and doxycycline. R/o lymes, anaplasmosis negative. -Incentive spirometry, Mucinex, Tessalon Perles, sputum culture if able to produce expectorant to continue pulmonary toilet -Awaiting procalcitonin-negative -Antibiotics have been discontinued -Advised to continue with ProAir inhalation as needed (4) Shortness of breath: Plan: - Noted as above, likely secondary to bronchitis -No shortness of breath at rest and does not require any oxygen -History of asthma without any exacerbation -Continue as needed inhalers -Denies any more shortness of breath at rest or with minimal exertion (5) Asthma: Plan: - Hx of such, used albuterol inhaler several times within past 4 days. - Continue nebs, antibiotics. - No wheezing so no urgent need for steroids currently. On RA with O2 sats = 95% -Antibiotics will be discontinued (6) Diabetes mellitus, type 2: Plan: -Hold p.o. Metformin - ISS with Accu-Cheks AC at bedtime -A1c with am labs, last was 6.4 in August. (7) Hypertension: Plan: - Continue lisinopril 20 mg daily - BP controlled (8) Osteoarthritis: Plan: - hx of such, continue MVI (9) GERD (gastroesophageal reflux disease): Plan: - Stable, continue omeprazole DVT PPx: - teds, scds, heparin drip CODE: Full code She will be discharged home this afternoon Admission and Anticipated Discharge Date Admission Date: February 13, 2021 Subjective 02/14/2021 The patient was seen and examined in telemetry unit She was admitted with ongoing cough and fever as an outpatient with some chest discomfort Has had concave ST elevation on initial EKG with mildly increased troponin She still has cough but denies any chest discomfort 02/15/2021 Patient was seen and examined in telemetry unit Besides cough she does not have any other symptoms today She was noted to have E. coli UTI without any symptoms Review of Systems Review of Systems: All systems reviewed and are unremarkable except as noted below Respiratory: + cough; no dyspnea Cardiovascular: no chest pain and no palpitations Physical Exam Physical Exam: Lying in bed comfortably Constitutional: well developed and well nourished; not ill appearing Eyes: PERRL, conjunctivae normal, anicteric sclerae Neck: trachea midline, no thyromegaly Respiratory: normal respiratory effort; no respiratory distress Auscultation: lungs clear to auscultation bilaterally Cardiovascular: Rate/Rhythm: regular rate Heart Sounds: normal S1 and normal S2; no murmur and no cardiac rub Gastrointestinal (Abdomen): normal bowel sounds, soft, nontender, no hepatosplenomegaly Musculoskeletal: No acute arthritis in any joint Neurologic: PERRL, EOMI, accommodation nl, no face palsy, no dysarthria Psychiatric: A+Ox3, euthymic affect Lymphatic: no cervical or axillary lymphadenopathy Results & Data Results & Data ([facility]) Vital Signs (Past 12 Hours) Vital Signs Temp Pulse Pulse Resp BP Pulse Ox 02/15/21 09:36 60 02/15/21 07:29 36.7 C 66 18 146/84 H 95 02/15/21 07:02 62 16 96 02/15/21 04:11 36.8 C 88 16 145/83 H 98 02/15/21 02:47 70 14 96 02/14/21 23:13 36.7 C 63 18 138/80 95 Laboratory Results Short CBC 02/15/21 Range/Units 06:10 WBC 7.41 (4.8-10.8) K/uL Hgb 12.6 (12.0-16.0) g/dL Hct 38.9 (37-47) % Plt Count 205 (130-400) K/uL BMP 02/15/21 06:10 Sodium 141 Potassium 3.9 Chloride 108 H Carbon Dioxide 29 BUN 15 D Creatinine 0.64 Glucose 115 H Calcium 8.8 Cardiac Enzymes 02/15/21 Range/Units 06:10 Troponin I 0.201 H* (0-0.045) ng/ml Liver Function 02/15/21 Range/Units 06:10 Total Bilirubin 0.4 (0.2-1) mg/dl AST 18 (15-37) U/L ALT 31 (12-78) U/L Alkaline Phosphatase 70 (45-117) U/L Albumin 2.8 L (3.4-5.0) gm/dl Medications Administered Current Inpatient Medications Acetaminophen (Acetaminophen 325 Mg Tab) 650 mg PO Q4H PRN PRN Reason: Moderate Pain Stop: 03/15/21 21:06 Albuterol (Albut/Ipratrop 3mg/0.5mg Neb 3 Ml Vial) 3 ml NEB Q4R PRN PRN Reason: Wheezing Stop: 03/15/21 22:59 Aspirin (Aspirin 81 Mg Ectab) 81 mg PO PM [facility] Stop: 03/15/21 21:29 Last Admin: 02/14/21 20:06 Dose: 81 mg Documented by: Benzonatate (Benzonatate 100 Mg Capsule) 100 mg PO TID [facility] Stop: 03/15/21 21:29 Last Admin: 02/15/21 08:08 Dose: 100 mg Documented by: Cephalexin HCl (Cephalexin 500 Mg Cap) 500 mg PO BID [facility]; Protocol Stop: 02/20/21 10:44 Colchicine (Colchicine 0.6 Mg Tab) 0.6 mg PO BID [facility] Stop: 03/16/21 11:14 Last Admin: 02/15/21 08:08 Dose: 0.6 mg Documented by: Cyanocobalamin (Cyanocobalamin 500 Mcg Tablet (Vitamin B-12)) 1,000 mcg PO PM [facility] Stop: 03/15/21 21:29 Last Admin: 02/14/21 20:07 Dose: 1,000 mcg Documented by: Dextrose (Dextrose 50% 50 Ml Syringe) 25 - 50 ml IV UD PRN; Protocol PRN Reason: Hypoglycemia Protocol Stop: 03/15/21 21:06 Enoxaparin Sodium (Enoxaparin Inj 40 Mg/0.4 Ml Syr) 40 mg SQ QAM KAYLENE Stop: 03/17/21 08:59 Last Admin: 02/15/21 08:08 Dose: 40 mg Documented by: Fluticasone Propionate (Fluticasone Propionate Na Spr 16 Gm Btl) 2 sprays NA PM KAYLENE Stop: 03/15/21 21:29 Last Admin: 02/14/21 20:07 Dose: 2 sprays Documented by: Glucagon (Glucagon For Inj 1 Mg Vial) 1 mg SQ UD PRN; Protocol PRN Reason: Hypoglycemia Protocol Stop: 03/15/21 21:06 Glucose (Glucose 10 Tabs/Tube) 4 - 8 tabs PO UD PRN; Protocol PRN Reason: Hypoglycemia Protocol Stop: 03/15/21 21:06 Glucose (Glucose 40% Gel 15 Gm Tube) 15 - 30 gm PO UD PRN; Protocol PRN Reason: Hypoglycemia Protocol Stop: 03/15/21 21:06 Guaifenesin (Guaifenesin 600 Mg Tabcr) 1,200 mg PO Q12 KAYLENE Stop: 03/15/21 21:29 Last Admin: 02/15/21 08:08 Dose: 1,200 mg Documented by: Heparin Sodium/Dextrose (Heparin Sodium/Dextrose) 25,000 units in 500 mls @ 0 mls/hr IV .Q0M KAYLENE; Protocol Stop: 03/15/21 18:14 Last Titration: 02/14/21 09:56 Dose: 0 units/hr, 0 mls/hr Documented by: Insulin Aspart (Insulin Aspart 100 Units/Ml 3 Ml Pen) 0 units SC ACHS [facility] Stop: 03/15/21 21:29 Last Admin: 02/15/21 08:12 Dose: 6 units Documented by: Lisinopril (Lisinopril 20 Mg Tab) 20 mg PO PM KAYLENE Stop: 03/15/21 21:29 Last Admin: 02/14/21 20:06 Dose: 20 mg Documented by: Miscellaneous (Carbohydrates For Hypoglycemia ) 15 - 30 gm PO UD PRN PRN Reason: Hypoglycemia Protocol Stop: 03/15/21 21:06 Multivitamins (Multivitamin Tab) 1 tab PO PM [facility] Stop: 03/15/21 21:29 Last Admin: 02/14/21 20:06 Dose: 1 tab Documented by: Ondansetron HCl (Ondansetron Inj 2 Mg/Ml 2 Ml Vial) 4 mg IV Q4H PRN PRN Reason: Nausea And Vomiting Stop: 03/15/21 21:06 Pantoprazole Sodium (Pantoprazole 40 Mg Tab) 40 mg PO PM KAYLENE; Protocol Stop: 03/15/21 21:29 Last Admin: 02/14/21 20:06 Dose: 40 mg Documented by: Prednisone (Prednisone 20 Mg Tab) 20 mg PO DAILY [facility] Stop: 03/17/21 08:59 Last Admin: 02/15/21 08:08 Dose: 20 mg Documented by:
--- NOTE | 2021-02-16 07:36 | Discharge Summary ---
Date of Service February 16, 2021 Admission HPI Per Admitting Provider Chief Complaint: Fever, Dyspnea Primary Care Provider: Chel Hamilton, This is a 61 yo F with PMHx of HTN, DM II, GERD, migraine, osteoarthritis who presents with cold like symptoms, fever, and elevated troponin from doctors office. Pt developed cold like symptoms around January 25-, with cough, congestion, postnasal drip, a lot of mucus and drainage, discharge is clear and sometime yellow, as well as constant headache. Her children who also had symptoms are now improved. She represented to her PCP on 01/31/21 due to continue symptoms, and was given Rx for prednisone and a Z-pack x 5 days. Her symptoms seemed to improve but then came back with a vengeance. Last Friday 02/09, she began feeling worse with fever, dry cough, chills, sweats. Yesterday she developed a fever on and off throughout the day, which broke with tylenol. At 2:30 in the morning she awoke with substernal and left-sided chest pain which radiated up to her left jaw, cute shortness of breath and diaphoresis. Today she presented to her PCP around noon, where blood work was ordered, along with EKG, and noted to have elevated troponin. Her troponin was elevated today therefore her PCP sent her to the ER. She received her Covid vaccination in June 2020, and is negative upon admission. Her sister who is actively going through chemotherapy treatments, has caused her to be very diligent in social distancing, no recent travel, etc. She promotes wearing a mask, and reports that her family members who live in her home do as well. Admission Exam Per Admitting Provider Physical Exam: General: awake, alert, no apparent distress, obese with BMI of 39.1 Head: Normocephalic, atraumatic ENT: PERRL, EOMI, no pharyngeal exudate, mucous membranes moist Chest: Clear to auscultation, on room air, no adventitious breath sounds Cardiac: + chest tenderness on exam over right and left chest wall, regular rate and rhythm, no murmur, no JVD, normal peripheral pulses, good capillary refill Abdominal: NABS x 4 quadrants, soft, nondistended, nontender to palpation, no rebound or guarding Extremities: Normal inspection, no peripheral edema or erythema, calfs nontender to palpation Psych: Normal mood and affect Neuro: AAO x 3, strength intact bilaterally and rated 5/5, no motor deficits, speech is clear, no peripheral sensory deficits Principal Diagnosis Acute pericarditis, UTI, controlled asthma, type 2 diabetes, hypertension Discharge Exam Constitutional well developed and well nourished; not ill appearing Eyes PERRL, conjunctivae normal, anicteric sclerae Neck trachea midline, no thyromegaly Respiratory normal respiratory effort; no respiratory distress Auscultation: lungs clear to auscultation bilaterally Cardiovascular Rate/Rhythm: regular rate Heart Sounds: normal S1 and normal S2; no murmur and no cardiac rub Gastrointestinal (Abdomen) normal bowel sounds, soft, nontender, no hepatosplenomegaly Neurologic PERRL, EOMI, accommodation nl, no face palsy, no dysarthria Psychiatric A+Ox3, euthymic affect Lymphatic no cervical or axillary lymphadenopathy Discharge Data Allergies Allergy/AdvReac Type Severity Reaction Status Date / Time adhesive Allergy Severe skin Verified 02/13/21 18:26 irritation ciprofloxacin Allergy Intermediate RASH Verified 02/13/21 18:26 Penicillins Allergy Intermediate rash Verified 02/13/21 18:26 Sulfa (Sulfonamide Allergy Intermediate rash Verified 02/13/21 18:26 Antibiotics) Cipro Allergy Unknown RASH Verified 01/14/17 05:54 morphine AdvReac Intermediate BAD Verified 02/13/21 18:26 HEADACHE codeine AdvReac Mild CONFUSION Verified 02/13/21 18:26 oxycodone AdvReac Mild Headache Verified 02/13/21 18:26 Consultations 02/13/21 18:06 ED Decision to Admit Stat 02/13/21 21:07 Consult Cardiology Routine Ordered Studies 02/13/21 16:44 CT angio chest PE protocol Stat 02/13/21 21:07 US venous doppler [facility] Routine Hospital Course (1) Chest pain: Has been having cough for the last few days No definite chest pain but does have discomfort Initial EKG noted concave ST elevation/[place] depression suggestive of acute pericarditis CTA was negative for any pulmonary embolism Troponin was minimally elevated but serial troponin tests were unremarkable She was initially put on intravenous heparin with a suspicion for acute [place] and that was discontinued this morning Appreciate cardiology input and recommendation Echo has been unremarkable for any wall motion abnormalities Has been started on oral colchicine and prednisone Denies any more chest pain since admission but the cough is persisting without any wheezing and/or shortness of breath Acute pericarditis Started on oral colchicine and prednisone No NSAID's Denies any more chest discomfort or pain Troponin remains mildly elevated at 0.2 Acute UTI Secondary to E. coli Received 1 dose of ceftriaxone We will start oral Keflex (2) Elevated troponin: - Concern for pericarditis versus viral cardiomyopathy with elevated CRP, checking an ESR. Initiate colchicine versus prednisone if pericarditis confirme d. - Troponin elevated at 0.155, trend x 2 more sets - Consult cardiology- discussed with Dr. Emmanuel. - EKG reviewed as above, without ST wave changes or inversions, with CT depression. -CTA negative for PE. - Takes baby aspirin daily, given additional 234 mg in the ER (3) Bronchitis: - Finished azithromycin x 5 days with prednisone pack with improvement of sx initially, but then worsened again. Will continue on ceftriaxone and doxycycline. R/o lymes, anaplasmosis negative. -Incentive spirometry, Mucinex, Tessalon Perles, sputum culture if able to produce expectorant to continue pulmonary toilet -Awaiting procalcitonin-negative -Antibiotics have been discontinued -Advised to continue with ProAir inhalation as needed (4) Shortness of breath: - Noted as above, likely secondary to bronchitis -No shortness of breath at rest and does not require any oxygen -History of asthma without any exacerbation -Continue as needed inhalers -Denies any more shortness of breath at rest or with minimal exertion (5) Asthma: - Hx of such, used albuterol inhaler several times within past 4 days. - Continue nebs, antibiotics. - No wheezing so no urgent need for steroids currently. On RA with O2 sats = 95% -Antibiotics will be discontinued (6) Diabetes mellitus, type 2: -Hold p.o. Metformin - ISS with Accu-Cheks AC at bedtime -A1c with am labs, last was 6.4 in August. (7) Hypertension: - Continue lisinopril 20 mg daily - BP controlled (8) Osteoarthritis: - hx of such, continue MVI (9) GERD (gastroesophageal reflux disease): - Stable, continue omeprazole DVT PPx: - teds, scds, heparin drip CODE: Full code She will be discharged home this afternoon Total Time Total Time Spent Total Time Spent (In Minutes): 35 minutes Discharge Plan Discharge Items Patient Disposition: Home - Self-Care Reason For Visit: FEVER, COUGH, NSTEMI Discharge Diagnosis: Acute pericarditis, UTI, controlled asthma, type 2 diabetes, hypertension Condition on Discharge: Good Activity: Resume your previous activity Non-emergency contact: Primary Care Provider Call non-emergency contact if: you have any medication questions and your symptoms worsen Follow-up/Referrals: Chel Hamilton, DO [Primary Care Provider] - (Will call you with an appointment with your PCP within 7 days) Diet: Carb Consistent or DM2 and Heart Healthy Addtl Attending Provider Instructions: Please take your medications as advised Your albuterol inhaler will be helpful for cough You can also try some cough medicine [id number] Check your blood sugar as before and if it remains high you may need to increase your Metformin as long as you are 1 prednisone. Discussed this with your PCP in a follow-up appointment Addtl Neon Sign Servicer Provider Instructions: Take your prednisone tablet as directed below: 20 mg daily for 3 weeks and then 17.5 mg daily for an next 3 weeks, 15 mg daily for 3 weeks, 12.5 mg daily for 3 weeks, 10 mg daily for 3 weeks, 7.5 mg daily for 3 weeks, 5 mg daily for 3 weeks and then 2.5 mg daily for 3 weeks to finish. Pending Studies at Discharge: No Stand-Alone Forms: My From The Bench, Smoking Cessation Medications and DC Order Prescriptions: New cephalexin 500 mg Capsule 500 mg PO BID 3 Days Qty: 6 RF: 0 colchicine [Colcrys] 0.6 mg Tablet 0.6 mg PO BID 30 Days Qty: 60 RF: 0 prednisone 5 mg tablet 5 mg PO UD Qty: 90 RF: 4 Continued multivitamin Tablet 1 tab PO PM RF: 0 lisinopril 20 mg Tablet 20 mg PO PM RF: 0 omeprazole 40 mg Capsule,Delayed Release(Dr/Ec) 40 mg PO PM RF: 0 aspirin 81 mg Tablet,Delayed Release (Dr/Ec) 81 mg PO PM RF: 0 lorazepam 0.5 mg Tablet 0.5 mg PO HS PRN (Reason: Anxiety) RF: 0 cyanocobalamin (vitamin B-12) 1,000 mcg Tablet, Sublingual 1,000 mcg SUBLINGUAL PM RF: 0 albuterol sulfate 90 mcg/actuation HFA aerosol inhaler 2 inh INHALATION Q4H PRN (Reason: sob) RF: 0 fluticasone propionate 50 mcg/actuation [place],Suspension 2 spray INTRANASAL PM RF: 0 metformin 500 mg Tablet Extended Release 24 Hr 500 mg PO PM RF: 0 ferrous gluconate 324 mg (36 mg iron) Tablet 324 mg PO DAILY RF: 0 Discontinued ibuprofen 200 mg Tablet 400 mg PO Q6H PRN (Reason: Pain) RF: 0 Discharge Orders: Discharge Order (Routine); Ordered 02/15/21 Ordered By: Mary Delaney/Other Patient Handouts: A1C, Managing Type 2 Diabetes Admission Data Admit Date/Time: 02/13/21 18:41 Attending Provider: Mary Chilel Admit Provider: True Niño Primary Care Provider: Chel Hamilton Other Providers: True Niño ; Donny Emmanuel Other Interventions: Discharge Summary Assessment (RN) Last Done: 02/15/21 13:42
--- NOTE | 2021-02-28 08:10 | Coding Query ---
CODING QUERY To promote full compliance with coding requirements relating to patient care, provider participation is requested in all cases of retail merchandiser technician uncertainty. Please assist us with the question(s) below: Coding Question(s): The ER documents NSTEMI, the H&P documents possible NSTEMI, the Cardiology Consultation documents, "At present, she does not have ongoing symptoms to suggest that she is having an ST segment elevation myocardial infarction. EKG reveals diffuse mild ST elevation that is certainly new compared to her previous tracing performed back in 2017 prior to her elective knee replacement, and has become more prominent on serial tracings when the tracing from yesterday as compared to today. We will discontinue unfractionated heparin and will observe her for symptoms of angina, as she does have risk factors of course for underlying coronary heart disease", then Progress Notes after that and the Discharge Summary document, "She was initially put on intravenous heparin with a suspicion for acute [place] and that was discontinued this morning". It is not clear if the possible Non-ST elevation [place] was still possible or if it was ruled-out. Please specify below, in your clinical opinion. ( ) Possible NSTEMI ( ) NSTEMI is Ruled-Out ( + ) Other: Please Specify_The final diagnosis is Acute pericarditis. Physician's Response(s): Thank you Malu Huggins Principal Diagnosis: "that condition established after study, to be chiefly responsible for occasioning the admission of the patient to the hospital for care." Co-Existing Principal Diagnosis: "when two or more diagnoses equally meet the criteria for principal diagnosis as determined by the circumstances of admission, diagnostic work up, and/or therapy provided, and the Alphabetic Index, Tabular List, or another coding guideline does not provide sequencing direction, any one of the diagnoses may be sequenced first." "When the physician has documented what appears to be a current diagnosis in the body of the record, but has not included the diagnosis in the final diagnostic statement, the physician should be asked whether the diagnosis should be added." (Source Coding Clinic 2 QTR90. p3-4) [email or web address]
== END 2021-02-15 14:17 | disposition home or self-care (01) | DRG 315 ==
LOC: ED 16:15 → 2S 18:41 → SUATTDRO 18:41 → 2S 20:16
DX: Z79.899 Other long term (current) drug therapy; J20.9 Acute bronchitis, unspecified; E11.65 Type 2 diabetes mellitus with hyperglycemia; Z79.82 Long term (current) use of aspirin; R79.1 Abnormal coagulation profile; Z88.5 Allergy status to narcotic agent; I10 Essential (primary) hypertension; R79.89 Other specified abnormal findings of blood chemistry; Z79.84 Long term (current) use of oral hypoglycemic drugs; K21.9 Gastro-esophageal reflux disease without esophagitis; M19.90 Unspecified osteoarthritis, unspecified site; B33.24 Viral cardiomyopathy; Z51.81 Encounter for therapeutic drug level monitoring; N39.0 Urinary tract infection, site not specified; B96.20 Unspecified Escherichia coli [E. coli] as the cause of diseases classified elsewhere; Z88.2 Allergy status to sulfonamides; Z88.1 Allergy status to other antibiotic agents; I30.9 Acute pericarditis, unspecified; D64.9 Anemia, unspecified; J90 Pleural effusion, not elsewhere classified; Z91.048 Other nonmedicinal substance allergy status; J45.909 Unspecified asthma, uncomplicated; Z88.0 Allergy status to penicillin; Z20.822 Contact with and (suspected) exposure to COVID-19

== ENCOUNTER 2023-10-09 19:06 | Inpatient (IN) ==
--- NOTE | 2023-10-09 19:44 | Emergency Department Note ---
History of Present Illness General Chief complaint: Flu Like Symptoms Stated complaint: FLU LIKE SYMPTOMS Time Seen by Provider: 10/09/23 19:29 Source: patient, family ( who is at the bedside), RN notes reviewed and old records reviewed ([id number]-for follow-up on pericarditis.) Mode of arrival: ambulatory Limitations: no limitations History of Present Illness Maximum Pain Intensity: 5 This patient is a 63-year-old female who is felt ill since Wednesday night. She was on a cruise and said when she got home she started feeling nauseated shaky dizzy headache body aches she had a dry cough and a sore throat as well. She only has a minimal headache now. She is not sure if she has had a fever. Slight nausea no emesis no diarrhea she does have continued body aches. She does have a dry cough and has some tightness associated with this but no significant chest pain or shortness of breath. No sick contacts. She tells me she did have a rash on her legs last when on the cruise but that is gotten better. She had pericarditis when she had COVID a couple years ago and had a subsequent echocardiogram on 03-04-2022 which showed a normal EF of 65% Home Medications Medication Instructions Recorded Confirmed Type albuterol sulfate 90 mcg/actuation 2 inh inhalation Q4H PRN sob 02/13/21 10/09/23 History aerosol inhaler aspirin 81 mg tablet,delayed 81 mg PO PM 02/13/21 10/09/23 History release multivitamin 1 tab PO PM 02/13/21 10/09/23 History metformin 500 mg tablet,extended 500 mg PO QPM 06/02/23 10/09/23 History release 24 hr cyclosporine 0.05 % eye drops 1 drp ophthalmic (eye) Q12H 09/14/23 10/09/23 History (Restasis MultiDose) tirzepatide 5 mg/0.5 mL 5 mg (0.5 mL) subcut Q7D #2 mL 09/14/23 10/09/23 Rx subcutaneous pen injector omeprazole 20 mg capsule,delayed 20 mg PO DAILY #30 caps 10/05/23 10/09/23 Rx release amlodipine 2.5 mg tablet 2.5 mg PO DAILY 10/09/23 10/09/23 History clindamycin HCl 300 mg capsule 600 mg PO DIRECTED PRN 1 HR 10/09/23 10/09/23 History PRIOR TO DENTAL APPT. ferrous gluconate 324 mg (38 mg 324 mg PO DAILY 10/09/23 10/09/23 History iron) tablet hydrochlorothiazide 25 mg tablet 25 mg PO DAILY 10/09/23 10/09/23 History lisinopril 40 mg tablet 40 mg PO DAILY 10/09/23 10/09/23 History Allergies Allergy/AdvReac Type Severity Reaction Status Date / Time adhesive Allergy Severe skin Verified 10/09/23 20:32 irritation ciprofloxacin Allergy Intermediate RASH Verified 10/09/23 20:32 Penicillins Allergy Intermediate rash Verified 10/09/23 20:32 Sulfa (Sulfonamide Allergy Intermediate rash Verified 10/09/23 20:32 Antibiotics) codeine AdvReac Intermediate CONFUSION Verified 10/09/23 20:32 morphine AdvReac Intermediate BAD Verified 10/09/23 20:32 HEADACHE oxycodone AdvReac Intermediate Headache Verified 10/09/23 20:32 Past Med/Surg History Medical History Left knee DJD History of abnormal cervical Pap smear Osteoarthritis GERD (gastroesophageal reflux disease) Diabetes mellitus, type 2 Cancer Anemia Migraine Hypertension Cardiac murmur Asthma Surgical History Status post right knee replacement History of hysterectomy History of total knee replacement History of tooth extraction Social History Smoking Status: Never smoker Second Hand Exposure: No; Do You Dip or Chew Tobacco: No; Hx Alcohol Use: No Hx Substance Use: No Preferred Language: Kinyarwanda Communication Ability: Effective Land Leveler Required: No Beliefs That Will Affect Care: None Current Living Situation: Spouse Current Living Situation Comment: grandchildren Feels Safe at Home: Yes Assistive Devices: Glasses Review of Systems A total of 10 systems reviewed and were otherwise negative Physical Exam Vital Signs Vital Signs - 24 hr 10/09/23 19:18 10/09/23 19:38 10/09/23 19:57 Temperature 36.9 C Temperature Source Temporal Artery Scan Pulse Rate 93 H 78 Pulse Rate [Apical] Pulse Rhythm [Apical] Pulse Strength [Apical] Respiratory Rate 18 Respiratory Effort / Characteristics Respiratory Depth Respiratory Pattern Blood Pressure 143/81 H Blood Pressure [Right Arm] Blood Pressure Mean 101 Blood Pressure Mean [Right Arm] Blood Pressure Position [Right Arm] Pulse Oximetry 91 90 Oxygen Delivery Method Room Air Room Air Sepsis Recent Fever Within 48 Hours Yes Sepsis New/Unexplained Change in Mental Status No Sepsis Action Taken by Nursing No Action Required 10/09/23 21:07 10/09/23 23:00 Temperature Temperature Source Pulse Rate Pulse Rate [Apical] 73 86 Pulse Rhythm [Apical] Regular Pulse Strength [Apical] Normal Respiratory Rate 24 18 Respiratory Effort / Characteristics Non-Labored Spontaneous Non-Labored Spontaneous Respiratory Depth Normal Normal Respiratory Pattern Regular Regular Blood Pressure Blood Pressure [Right Arm] 164/80 H 149/69 H Blood Pressure Mean Blood Pressure Mean [Right Arm] 108 95 Blood Pressure Position [Right Arm] Semi-fowlers Lying Pulse Oximetry 90 96 Oxygen Delivery Method Room Air Room Air Sepsis Recent Fever Within 48 Hours Sepsis New/Unexplained Change in Mental Status Sepsis Action Taken by Nursing General: Well developed well nourished mildly ill-appearing but nontoxic middle- age female who appears in no acute distress, breathing comfortably on room air. Normal speech HEENT: Normal cephalic atraumatic. Pupils are equal round and reactive to light. Extraocular movements are intact. Oropharynx is pink with somewhat dry mucous membranes. No swelling of the mouth lips or tongue. Neck: Supple with a midline trachea. No meningeal signs or stiffness, no JVD or bruits. No Stridor. Negative Kernig and Brezinski signs Chest: Clear to auscultation bilaterally. No wheezes or rhonchi. No increased work of breathing. Heart: Regular rate and rhythm without murmurs or gallops. Abdomen: Soft nontender, nondistended without rebound guarding or rigidity. Extremities: No cyanosis clubbing or edema. No calf tenderness or assymetry Spine/Back. Non tender to palpation. No CVA tenderness Skin: Good turgor without rashes. Neurologic exam: Cranial nerves two through 12 are intact. Motor and sensation are intact and symmetrical throughout. Course Administered Medications Discontinued Medications Albuterol (Albut/Ipratrop 3mg/0.5mg Neb 3 Ml Vial) 3 ml NEB NOW STA; Protocol Stop: 10/09/23 21:32 Last Admin: 10/09/23 21:47 Dose: 3 ml Documented By: WILTON Ceftriaxone Sodium 2,000 mg/ (Dextrose) 50 mls @ 100 mls/hr IV NOW STA; Protocol Stop: 10/09/23 22:00 Last Infusion: 10/09/23 23:44 Dose: Infused Documented By: Admin: 10/09/23 22:30 Dose: 100 mls/hr Documented By: WILTON Sodium Chloride (Nss) 1,000 mls @ 999 mls/hr IV .Q1H1M ONE Stop: 10/09/23 22:32 Last Infusion: 10/09/23 22:56 Dose: Infused Documented By: Admin: 10/09/23 21:45 Dose: 999 mls/hr Documented By: WLITON Acetaminophen (Ofirmev) 1,000 mg in 100 mls @ 400 mls/hr IV NOW STA Stop: 10/10/23 00:56 Last Admin: 10/10/23 01:12 Dose: 400 mls/hr Documented By: IDJenaro Medical Decision Making Differential Diagnosis Influenza, viral illness, pneumonia, cardiac disease, electrolyte or metabolic abnormalities. Medical Records Attestation: I reviewed the patient's medical records. Home Medications Current Medication List: was personally reviewed by me Laboratory Data Attestation: I reviewed the patient's lab results. 10/09/23 19:58 10/09/23 19:58 Lab Results 10/09/23 10/09/23 10/09/23 Range/Units 19:21 19:58 21:40 WBC 13.29 H (4.8-10.8) K/ul RBC 5.24 (4.20-5.40) M/uL Hgb 14.2 (12.0-16.0) g/dl Hct 43.5 (37.0-47.0) % MCV 83.0 (80.0-100.0) fL MCH 27.1 (25.0-34.0) pg MCHC 32.6 (32.0-36.0) g/dL RDW Std Deviation 39.8 (36.4-46.3) fL RDW Coeff of Abimbola 13.2 (11.5-14.5) % Plt Count 238 (130-400) K/uL MPV 10.7 (9.4-12.4) fL Immature Gran % (Auto) 0.5 % Neut % (Auto) 85.7 % Lymph % (Auto) 6.0 % [place] % (Auto) 6.9 % Eos % (Auto) 0.5 % Baso % (Auto) 0.4 % Neut # (Auto) 11.39 H (1.40-6.50) K/uL Lymph # (Auto) 0.80 L (1.20-3.40) K/uL [place] # (Auto) 0.92 H (0.11-0.59) K/uL Eos # (Auto) 0.06 (0.00-0.50) K/uL Baso # (Auto) 0.05 (0.00-0.20) K/uL Immature Gran # (Auto) 0.07 (0.01-0.20) K/uL Sodium 134 L (136-145) mmol/L Potassium 3.6 (3.5-5.1) mmol/L Chloride 98 (98-107) mmol/L Carbon Dioxide 27 (21-32) mmol/L Anion Gap 9 (3-11) BUN 15 (6-23) mg/dl Creatinine 0.80 (0.6-1.2) mg/dl Est Cr Clr Drug Dosing 87.3 ml/min Est GFR ( Amer) 89.7 ml/min Est GFR (Non-Af Amer) 77.4 ml/min BUN/Creatinine Ratio 18.8 (10-20) Glucose 133 H (70-99(Fasting)) mg/dl Lactate 1.0 (0.4-2.0) mmol/L Calcium 9.1 (8.6-10.3) mg/dl Total Bilirubin 0.8 (0.2-1.0) mg/dl AST 17 (13-39) U/L ALT 14 (7-52) U/L Alkaline Phosphatase 74 (34-104) U/L Troponin I High Sens 11.1 (0-14) pg/ml Total Protein 7.5 (6.0-8.3) gm/dl Albumin 4.1 (3.4-5.0) gm/dl Globulin 3.4 (2.5-4.0) gm/dl Albumin/Globulin Ratio 1.2 (0.9-2) Urine Color Yellow Urine Appearance Clear (Clear) Urine pH 6.0 (4.5-7.5) Ur Specific [place] 1.008 (1.000-1.030) Urine Protein Negative (Negative) Urine Glucose (UA) Negative (Negative) Urine Ketones 1+ H (Negative) Urine Blood Trace H (Negative) Urine Nitrite Positive A (Negative) Urine Bilirubin Negative (Negative) Urine Urobilinogen Negative (Negative) Ur Leukocyte Esterase 3+ H (Negative) Urine WBC (Auto) >30 H (0-5) /hpf Urine RBC (Auto) 0-4 (0-4) /hpf U Hyaline Cast (Auto) 0 (0-5) /lpf U Epithel Cells (Auto) 0-5 (0-5) /lpf Urine Bacteria (Auto) 4+ H (Negative) Adenovirus (PCR) Not Detected (NotDetected) B. pertussis DNA (PCR) Not Detected (NotDetected) B.parapertussis DNA PCR Not Detected (NotDetected) C. pneumoniae DNA (PCR) Not Detected (NotDetected) Coronavirus OC43 (PCR) Not Detected (NotDetected) Coronavirus HKU1 (PCR) Not Detected (NotDetected) Coronavirus 229E (PCR) Not Detected (NotDetected) SARS-CoV-2 (PCR) Not Detected (NotDetected) Coronavirus NL63 (PCR) Not Detected (NotDetected) Human Metapneumovir PCR Not Detected (NotDetected) Influenza Type A (PCR) Not Detected (NotDetected) Influenza Type B (PCR) Not Detected (NotDetected) M. pneumoniae (PCR) Not Detected (NotDetected) Parainfluenza 1 (PCR) Not Detected (NotDetected) Parainfluenza 2 (PCR) Not Detected (NotDetected) Parainfluenza 3 (PCR) Not Detected (NotDetected) Parainfluenza 4 (PCR) Not Detected (NotDetected) RSV (PCR) Not Detected (NotDetected) Entero/Rhino (PCR) Not Detected (NotDetected) Imaging Data Attestation: I personally reviewed and interpreted this imaging study as follows: My Impression: Chest x-raythere is haziness in the right base consistent with pneumonia. No pneumothorax or CHF seen ECG Data Attestation: I personally reviewed and interpreted this ECG as follows: Indication: + chest pain Rate (beats per minute): 87 Rhythm: + normal sinus ECG Intervals/blocks: + Normal QRS, + Normal QT and + Normal [place] ECG [place]: + Normal ECG ST segments: + Nonspecific ST abnormalities ECG Findings: no PACs or no PVCs Comparison ECG Date: from (02/15/21) Change: no significant change MDM Narrative This patient comes in as scribed above she has a constellation of symptoms and flulike symptoms she is also has a history of several medical problems. In light of this I did order extensive workup nasal swab was obtained I also ordered EKG and chest x-ray. She clinically looks dehydrated and was given a 1 L IV normal saline bolus. Blood work was obtained. She was placed on a equipment monitor phototypesetting. Her bio fire came back negative however her white count was elevated and chest x-ray looks like pneumonia. Her O2 sat was on the low side it was 89- 90. She does have history of asthma does not appear to be wheezing much, I did give her a DuoNeb. I am concerned that she does have pneumonia. I did order ceftriaxone 2 g IV she does have antibiotic allergies but has had this before after reviewing the chart. I did add a lactic acid which ended up being normal. She has remained normotensive. Blood cultures were obtained as well. I did consult Dr. Cox to see the patient ER and admit/observe her for further inpatient treatment and evaluate Continuous equipment monitor phototypesetting: Orders placed in EMR for continuous cart monitor: Upon my evaluation she was noted to be normal sinus rhythm rate of 75 Impression & Plan Pneumonia, Acute dehydration, Asthma, Flu-like symptoms, Lab test negative for COVID-19 virus Discharge Plan Visit Data Chief Complaint: Flu Like Symptoms Stated Complaint: FLU LIKE SYMPTOMS ED Provider: Duy Gonzalez Discharge Problem: Pneumonia, Acute dehydration, Asthma, Flu-like symptoms, Lab test negative for COVID-19 virus Discharge Instructions Interventions: ED Discharge Assessment Last Done: 10/10/23 01:43 Discharge Problem: Pneumonia Qualifiers: Pneumonia type: due to unspecified organism Laterality: right Lung location: l ower lobe of lung Qualified Code(s): J18.9 - Pneumonia, unspecified organism Asthma Qualifiers: Asthma severity: mild Asthma persistence: unspecified Asthma complication type: unspecified Qualified Code(s): J45.909 - Unspecified asthma, uncomplicated
[2023-10-09 20:18] LABS: Basophils # (auto) 0.05 K/uL (0.00-0.20); Basophils % (auto) 0.4 %; Eosinophils # (auto) 0.06 K/uL (0.00-0.50); Eosinophils % (auto) 0.5 %; Hematocrit (blood only) 43.5 % (37.0-47.0); Hemoglobin 14.2 g/dl (12.0-16.0); Immature Granulocytes # (auto) 0.07 K/uL (0.01-0.20); Immature Granulocytes % (auto) 0.5 %; Mean Corpuscular Hemoglobin 27.1 pg (25.0-34.0); Mean Corpuscular Hgb Conc 32.6 g/dL (32.0-36.0); Mean Platelet Volume 10.7 fL (9.4-12.4); Monocytes # (auto) 0.92 K/uL (0.11-0.59); Monocytes % (auto) 6.9 %; Neutrophils # (auto) 11.39 K/uL (1.40-6.50); Neutrophils % (auto) 85.7 %; Platelet Count 238 K/uL (130-400); RDW Coefficient of Variation 13.2 % (11.5-14.5); RDW Standard Deviation 39.8 fL (36.4-46.3); Red Blood Count 5.24 M/uL (4.20-5.40); White Blood Count 13.29 K/ul (4.8-10.8)
[2023-10-09 20:32] LABS: Adenovirus PCR Not Detected (NotDetected); Bordetella parapertussis PCR Not Detected (NotDetected); Bordetella pertussis PCR Not Detected (NotDetected); Chlamydia pneumoniae PCR Not Detected (NotDetected); Coronavirus 229E PCR Not Detected (NotDetected); Coronavirus CoV-2 (COVID19)PCR Not Detected (NotDetected); Coronavirus HKU1 PCR Not Detected (NotDetected); Coronavirus NL63 PCR Not Detected (NotDetected); Coronavirus OC43PCR Not Detected (NotDetected); Human Metapneumovirus PCR Not Detected (NotDetected); Influenza A PCR Not Detected (NotDetected); Influenza B PCR Not Detected (NotDetected); Mycoplasma pneumoniae PCR Not Detected (NotDetected); Parainfluenza Virus 1 PCR Not Detected (NotDetected); Parainfluenza Virus 2 PCR Not Detected (NotDetected); Parainfluenza Virus 3 PCR Not Detected (NotDetected); Parainfluenza Virus 4 PCR Not Detected (NotDetected); Respiratory Syncytial VirusPCR Not Detected (NotDetected); Rhinovirus/Enterovirus PCR Not Detected (NotDetected)
[2023-10-09 20:36] LABS: Albumin Globulin Ratio 1.2 (0.9-2); Albumin Level 4.1 gm/dl (3.4-5.0); BUN Creatinine Ratio 18.8 (10-20); Bilirubin,Total 0.8 mg/dl (0.2-1.0); Calcium 9.1 mg/dl (8.6-10.3); Creatinine Clr Calc Pharmacy 87.3 ml/min; Est GFR (African American) 89.7 ml/min; Est GFR (Non-African American) 77.4 ml/min; Globulin 3.4 gm/dl (2.5-4.0); Potassium 3.6 mmol/L (3.5-5.1); Total Protein 7.5 gm/dl (6.0-8.3)
[2023-10-09 20:42] LABS: Troponin I High Sensitivity 11.1 pg/ml (0-14)
[2023-10-09] MEDS: SODIUM CHLORIDE 0.9% 1,000 ML IV ONE (21:45)
[2023-10-09] MEDS: ALBUT/IPRATROP 3MG/0.5MG NEB 3 ML VIAL NEB STA (21:47)
[2023-10-09 22:20] LABS: Appearance Urine Clear (Clear); Bacteria Urine Automated 4+ (Negative); Bilirubin Urine Negative (Negative); Blood Urine Trace (Negative); Cast Urine Automated 0 /lpf (0-5); Color Urine Yellow; Epithelial Cell Urine Auto 0-5 /lpf (0-5); Glucose Urine UA Negative (Negative); Ketones Urine 1+ (Negative); Leukocyte Esterase Urine 3+ (Negative); Nitrite Urine Positive (Negative); Protein Urine Negative (Negative); RBC Urine Automated 0-4 /hpf (0-4); Specific Gravity Urine 1.008 (1.000-1.030); Urobilinogen Urine Negative (Negative); WBC Urine Automated >30 /hpf (0-5)
[2023-10-09] MEDS: cefTRIAXone SODIUM 2,000 MG in DEXTROSE 5 % MINI-B 50 ML IV STA (22:30)
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
[2023-10-10] MEDS: ACETAMINOPHEN 1,000 MG/100 ML VIAL IV STA (01:12)
[2023-10-10] MEDS ORDERED: LEVALBUTEROL 1.25 MG/3 ML NEB NEB PRN (01:42)
[2023-10-10] MEDS ORDERED: hydrALAZINE HCL 20 MG/ML VIAL IV PRN (01:42)
[2023-10-10] MEDS ORDERED: ONDANSETRON INJ 2 MG/ML 2 ML VIAL IV PRN (01:42)
[2023-10-10] MEDS ORDERED: GLUCAGON FOR INJ 1 MG VIAL SQ PRN (01:42)
[2023-10-10] MEDS ORDERED: ALBUTEROL HFA 8 GM INHALER INH PRN (01:42)
[2023-10-10] MEDS ORDERED: GLUCOSE 40% GEL 15 GM TUBE PO PRN (01:42)
[2023-10-10] MEDS ORDERED: GLUCOSE 10 TAB/TUBE PO PRN (01:42)
[2023-10-10] MEDS ORDERED: NITROGLYCERIN SL 0.4 MG/TAB TAB SL PRN (01:42)
[2023-10-10] MEDS ORDERED: CARBOHYDRATES FOR HYPOGLYCEMIA PO PRN (01:42)
[2023-10-10] MEDS ORDERED: DEXTROSE 50% 50 ML SYRINGE IV PRN (01:42)
[2023-10-10] MEDS ORDERED: ARTIFICIAL TEARS OP PRN (03:04)
[2023-10-10] MEDS: DOXYCYCLINE HYCLATE 100 MG in DEXTROSE 5% MINI-B 100 ML IV SCH (03:34)
[2023-10-10] MEDS: SODIUM CHLORIDE 0.9% 1,000 ML IV SCH (03:34)
[2023-10-10 04:50] LABS: Basophils # (auto) 0.06 K/uL (0.00-0.20); Basophils % (auto) 0.5 %; Eosinophils # (auto) 0.04 K/uL (0.00-0.50); Eosinophils % (auto) 0.3 %; Hematocrit (blood only) 39.7 % (37.0-47.0); Hemoglobin 12.9 g/dl (12.0-16.0); Immature Granulocytes # (auto) 0.06 K/uL (0.01-0.20); Immature Granulocytes % (auto) 0.5 %; Lymphocytes # (auto) 1.29 K/uL (1.20-3.40); Lymphocytes % (auto) 10.3 %; Mean Corpuscular Hemoglobin 27.2 pg (25.0-34.0); Mean Corpuscular Hgb Conc 32.5 g/dL (32.0-36.0); Mean Corpuscular Volume 83.6 fL (80.0-100.0); Mean Platelet Volume 10.7 fL (9.4-12.4); Monocytes # (auto) 1.06 K/uL (0.11-0.59); Monocytes % (auto) 8.5 %; Neutrophils # (auto) 10.01 K/uL (1.40-6.50); Neutrophils % (auto) 79.9 %; Platelet Count 223 K/uL (130-400); RDW Coefficient of Variation 13.2 % (11.5-14.5); RDW Standard Deviation 40.3 fL (36.4-46.3); Red Blood Count 4.75 M/uL (4.20-5.40); White Blood Count 12.52 K/ul (4.8-10.8)
[2023-10-10 05:01] LABS: BUN Creatinine Ratio 17.9 (10-20); Calcium 8.7 mg/dl (8.6-10.3); Creatinine Clr Calc Pharmacy 104.2 ml/min; Est GFR (African American) 106.9 ml/min; Est GFR (Non-African American) 92.2 ml/min; Potassium 3.5 mmol/L (3.5-5.1)
[2023-10-10] MEDS: LEVALBUTEROL 1.25 MG/3 ML NEB NEB SCH (07:12)
[2023-10-10] MEDS: IPRATROPIUM BROMIDE NEB SOLN 0.02% 0.5MG/2.5ML VIAL INH SCH (07:12)
--- NOTE | 2023-10-10 07:41 | Electrocardiogram Report ---
Test Reason : Blood Pressure : / mmHG Vent. Rate : 087 BPM Atrial Rate : 087 BPM P-R Int : 142 ms QRS Dur : 082 ms QT Int : 348 ms P-R-T Axes : 064 022 040 degrees QTc Int : 418 ms Normal sinus rhythm Nonspecific ST abnormality Abnormal ECG When compared with ECG of 15-FEB-2021 04:17, ST now depressed in Anterior leads ST no longer elevated in Lateral leads Nonspecific T wave abnormality no longer evident in Anterolateral leads Confirmed by Gamal Felix ([id number]) on 10/10/2023 7:41:01 AM Referred By: REFERRED SELF Confirmed By:Brown Felix
--- NOTE | 2023-10-10 08:14 | XRay Report ---
XR chest 1V portable HISTORY: weakness COMPARISON: Chest 02/13/2021. FINDINGS: Right medial lung base airspace opacity. This likely represents a pneumonia. No pneumothora x. No pleural effusions. The heart is normal in size. IMPRESSION: There is a new right medial lung base airspace opacity. This likely represents a pneumonia. 1-2 month chest x-ray follow-up recommended to ensure resolution. ACT 112: Negative or not required by law. Electronically signed by: Darwin Serrano M.D. 10/10/2023 8:13 AM
[2023-10-10] MEDS ORDERED: XOPENEX/ATROVENT 1.25mg/0.5MG NEB COMBO NEB SCH (09:00)
[2023-10-10] MEDS: ENOXAPARIN INJ 40 MG/0.4 ML SYR SQ SCH (09:23)
[2023-10-10] MEDS: amLODIPine BESYLATE 5 MG TAB PO SCH (09:24)
[2023-10-10] MEDS: FERROUS GLUCONATE 324 MG TAB PO SCH (09:24)
[2023-10-10] MEDS: PANTOprazole 40 MG TAB PO SCH (09:24)
[2023-10-10] MEDS: lisinopril 40 MG TAB PO SCH (09:24)
[2023-10-10] MEDS: INSULIN ASPART PER UNIT CHARGE SC SCH (09:29)
--- NOTE | 2023-10-10 11:23 | Hospitalist Progress Note ---
Date of Service October 10, 2023 Assessment & Plan (1) Pneumonia: Plan: 53-year-old female with past medical significant for type 2 diabetes, obstructive sleep apnea on CPAP, obesity, hypertension, GERD, myalgia and myositis, anemia, Sjogren's syndrome, history of endometrial carcinoma, history of COVID, comes with flulike symptoms since last several days Right medial lung base pneumonia Patient presented with fatigue, cough and flulike symptoms Recently on the cruise [employer] negative Leukocytosis present Chest x-ray personally reviewed; right medial lung base pneumonia Continue on Rocephin and doxycycline Airway clearance therapy with DuoNeb and hypertonic saline Follow-up on blood culture History of asthma Generally rarely uses inhalers No obvious wheezing Oxygen sats were 90% Possible mild exacerbation from pneumonia Antibiotics as above Will do nebs [id number] and as needed Will monitor Possible UTI Urinalysis suggestive of UTI Urine culture growing gram-negative bacilli Blood culture pending On Rocephin, will follow-up on final culture Chest tightness Likely from pneumonia EKG on admission personally reviewed; normal sinus rhythm; nonspecific ST-T wave changes EKG in a.m. reviewed; normal sinus rhythm. High sensitive troponin negative Will obtain echocardiogram. Hypertension Amlodipine and lisinopril with holding parameters Will monitor Type II diabetes Holding metformin Sliding scale Will monitor Obstructive sleep apnea CPAP nightly GERD Omeprazole History of pericarditis Obtain echocardiogram DVT prophylaxis Lovenox Disposition Med/tele Full code Time spent evaluating patient, direct bedside care, chart review, placing orders, interpretation of diagnostic studies, discussion with consultants, patient, and family members, as well as other required patient management activities is 50 minutes Please note the above document was generated using voice recognition software. It may contain grammatical, syntax or spelling errors. Any formal questions or concerns about the content, text or information contained within the body of this dictation should be directly addressed to the provider for clarification Admission and Anticipated Discharge Date Admission Date: October 09, 2023 Subjective Patient seen and examined at bedside. She reports that she feels overall better. Saturating well on room air; endorses dry cough. Review of Systems Review of Systems: All systems reviewed & are unremarkable except as noted in Subjective Physical Exam Physical Exam: Constitutional: WD/WN, vitals as above, NAD, sitting up in bed, pleasant, conversing easily Respiratory: Decreased breath sound on right midlung field. Cardiovascular: RRR, no murmur, no edema Vessels: no JVD or carotid bruit Chest: normal inspection of chest Abdomen: normal bowel sounds, soft, nontender, no hepatosplenomegaly Musculoskeletal: no cyanosis or clubbing, extremities motor strength 5/5 Skin: no rashes, warm and dry normal turgor Neurologic: PERRL, EOMI, accommodation nl, no face palsy, no dysarthria CN's II- XI intact bilaterally and moves all extremities Psychiatric: A+Ox3, euthymic affect Results & Data Results & Data Vital Signs (Past 12 Hours) Vital Signs Temp Pulse Pulse Resp BP Pulse Ox Pulse Ox 10/10/23 07:48 36.8 C 77 18 137/76 91 10/10/23 07:13 70 18 92 10/10/23 05:31 10/10/23 05:31 36.6 C 72 18 135/78 93 10/10/23 05:15 79 10/10/23 03:00 70 18 150/79 H 93 10/10/23 01:47 75 18 91 10/10/23 01:42 93 10/10/23 01:17 85 18 152/72 H 92 10/09/23 23:42 82 O2 Del Method O2 Del Method FiO2 10/10/23 07:48 Room Air 10/10/23 07:13 Room Air 10/10/23 05:31 Room Air 10/10/23 05:31 Room Air 10/10/23 05:15 10/10/23 03:00 CPAP 10/10/23 01:47 21 10/10/23 01:42 Room Air 10/10/23 01:17 Room Air 10/09/23 23:42
[2023-10-10] MEDS: SODIUM CHLOR 7% 4 ML NEB NEB SCH (11:39)
--- NOTE | 2023-10-10 12:17 | Electrocardiogram Report ---
Test Reason : Blood Pressure : / mmHG Vent. Rate : 076 BPM Atrial Rate : 076 BPM P-R Int : 150 ms QRS Dur : 084 ms QT Int : 396 ms P-R-T Axes : 045 039 042 degrees QTc Int : 445 ms Normal sinus rhythm with sinus arrhythmia Normal ECG When compared with ECG of 09-OCT-2023 19:53, No significant change was found Confirmed by Gamal Felix ([id number]) on 10/10/2023 12:17:45 PM Referred By: REFERRED SELF Confirmed By:Brown Felix
[2023-10-10] MEDS: MULTIVITAMIN TAB PO SCH (20:31)
[2023-10-10] MEDS: ACETAMINOPHEN 325 MG TAB PO PRN (20:31)
[2023-10-10] MEDS: ASPIRIN 81 MG ECTAB PO SCH (20:31)
[2023-10-10] MEDS: cefTRIAXone SODIUM 2,000 MG in DEXTROSE 5 % MINI-B 50 ML IV SCH (21:24)
[2023-10-11] MEDS: guaiFENesin/CODEINE 100MG/10MG 5ML UDC PO PRN (03:09)
[2023-10-11 07:03] LABS: Basophils # (auto) 0.04 K/uL (0.00-0.20); Basophils % (auto) 0.4 %; Eosinophils # (auto) 0.21 K/uL (0.00-0.50); Eosinophils % (auto) 2.2 %; Hematocrit (blood only) 37.5 % (37.0-47.0); Hemoglobin 12.1 g/dl (12.0-16.0); Immature Granulocytes # (auto) 0.05 K/uL (0.01-0.20); Immature Granulocytes % (auto) 0.5 %; Lymphocytes # (auto) 1.19 K/uL (1.20-3.40); Lymphocytes % (auto) 12.2 %; Mean Corpuscular Hemoglobin 26.9 pg (25.0-34.0); Mean Corpuscular Hgb Conc 32.3 g/dL (32.0-36.0); Mean Corpuscular Volume 83.3 fL (80.0-100.0); Monocytes % (auto) 9.2 %; Neutrophils # (auto) 7.34 K/uL (1.40-6.50); Neutrophils % (auto) 75.5 %; Platelet Count 221 K/uL (130-400); RDW Coefficient of Variation 13.2 % (11.5-14.5); RDW Standard Deviation 39.8 fL (36.4-46.3); White Blood Count 9.73 K/ul (4.8-10.8)
[2023-10-11 07:24] LABS: Estimated Average Glucose 123 mg/dl; Hemoglobin A1C 5.9 % (4.5-5.6)
[2023-10-11 07:32] LABS: BUN Creatinine Ratio 14.9 (10-20); Calcium 8.6 mg/dl (8.6-10.3); Est GFR (African American) 106.9 ml/min; Est GFR (Non-African American) 92.2 ml/min; Potassium 3.9 mmol/L (3.5-5.1)
--- NOTE | 2023-10-11 13:39 | Hospitalist Progress Note ---
Date of Service October 11, 2023 Assessment & Plan (1) Pneumonia: Plan: 53-year-old female with past medical significant for type 2 diabetes, obstructive sleep apnea on CPAP, obesity, hypertension, GERD, myalgia and myositis, anemia, Sjogren's syndrome, history of endometrial carcinoma, history of COVID, comes with flulike symptoms since last several days Right medial lung base pneumonia Patient presented with fatigue, cough and flulike symptoms Recently on the cruise [employer] negative Leukocytosis present Chest x-ray personally reviewed; right medial lung base pneumonia Blood culture no growth Continue on Rocephin and doxycycline Plan to treat for total of 7 days History of asthma Generally rarely uses inhalers No obvious wheezing Oxygen sats were 90% Possible mild exacerbation from pneumonia Antibiotics as above Will do nebs [id number] and as needed Will monitor Possible UTI Urinalysis suggestive of UTI Urine culture growing E. coli Blood culture no growth On Rocephin, continue Chest tightness Likely from pneumonia EKG on admission personally reviewed; normal sinus rhythm; nonspecific ST-T wave changes EKG in a.m. reviewed; normal sinus rhythm. High sensitive troponin negative Echocardiogram shows EF of 60 to 65% with mild concentric LVH. Grade 1 diastolic dysfunction Hypertension Amlodipine and lisinopril with holding parameters Will monitor Type II diabetes Holding metformin Sliding scale Will monitor Obstructive sleep apnea CPAP nightly GERD Omeprazole History of pericarditis Echocardiogram as above DVT prophylaxis Lovenox Disposition Med/tele Full code Please note the above document was generated using voice recognition software. It may contain grammatical, syntax or spelling errors. Any formal questions or concerns about the content, text or information contained within the body of t his dictation should be directly addressed to the provider for clarification Admission and Anticipated Discharge Date Admission Date: October 09, 2023 Subjective Patient seen and examined at bedside. She is reports that she is feeling much better compared to yesterday In room air; vital stable No overnight events Review of Systems Review of Systems: All systems reviewed & are unremarkable except as noted in Subjective Physical Exam Physical Exam: Constitutional: WD/WN, vitals as above, NAD, sitting up in bed, pleasant, conversing easily Respiratory: Decreased breath sound on right midlung field. Cardiovascular: RRR, no murmur, no edema Vessels: no JVD or carotid bruit Chest: normal inspection of chest Abdomen: normal bowel sounds, soft, nontender, no hepatosplenomegaly Musculoskeletal: no cyanosis or clubbing, extremities motor strength 5/5 Skin: no rashes, warm and dry normal turgor Neurologic: PERRL, EOMI, accommodation nl, no face palsy, no dysarthria CN's II- XI intact bilaterally and moves all extremities Psychiatric: A+Ox3, euthymic affect Results & Data Results & Data Vital Signs (Past 12 Hours) Vital Signs Temp Pulse Pulse Pulse Resp BP BP 10/11/23 11:16 37.1 C 85 18 131/69 10/11/23 10:25 92 H 16 10/11/23 07:53 10/11/23 07:35 36.6 C 74 20 135/73 10/11/23 07:20 78 16 10/11/23 07:14 87 10/11/23 06:38 37.4 C 87 20 141/66 H 10/11/23 03:34 143/80 H 10/11/23 03:07 36.7 C 88 18 173/86 H Pulse Ox O2 Del Method 10/11/23 11:16 94 Room Air 10/11/23 10:25 94 Room Air 10/11/23 07:53 Room Air 10/11/23 07:35 95 Room Air 10/11/23 07:20 92 Room Air 10/11/23 07:14 10/11/23 06:38 92 Room Air 10/11/23 03:34 10/11/23 03:07 92 Room Air
[2023-10-12] MEDS: IBUPROFEN 600 MG TAB PO STA (08:53)
--- NOTE | 2023-10-12 09:55 | XRay Report ---
XR ankle LT min 3V routine CLINICAL HISTORY: pain on lateral aspect of ankle TECHNIQUE: 3 views of the left ankle were obtained. Comparison: Comparison is made to tibia and fibular radiograph 09/23/2023 FINDINGS: No fractures are present. Degenerative changes are seen. Orthopedic hardware in the medial foot is se en. The ankle mortise is intact. No soft tissue abnormality is seen. IMPRESSION: Degenerative changes without evidence of acute fracture. ACT 112: Negative or not required by law. Electronically signed by: Werner Donald M.D. 10/12/2023 9:53 AM
--- NOTE | 2023-10-12 11:25 | Ultrasound Report ---
BILATERAL LOWER EXTREMITY VENOUS DOPPLER HISTORY: Leg discomfort and swelling. Rule out DVT COMPARISON STUDY: Lower extremity venous Doppler 02/13/2021. FINDINGS: There is normal compressibility, flow, and augmentation within the bilateral lower extremit y deep venous systems. IMPRESSION: No DVT within the right or left lower extremity. ACT 112: Negative or not required by law. Electronically signed by: Darwin Serrano M.D. 10/12/2023 11:24 AM
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
== END 2023-10-12 14:18 | disposition home or self-care (01) | DRG 194 ==
LOC: ED 19:06 → EDINP 23:05 → 2S 10-10 05:09 → 2W 10-11 06:23

== ENCOUNTER 2024-01-04 08:50 | Observation (INO) ==
--- NOTE | 2023-11-25 09:48 | PAT Medication Instructions ---
Medication Instructions Date of Service November 25, 2023 Home Medications Medication Instructions Recorded ibuprofen 600 mg tablet 600 mg PO Q8H PRN pain #21 tabs 10/12/23 tirzepatide 7.5 mg/0.5 mL 7.5 mg (0.5 mL) subcut Q7D #2 mL 11/11/23 subcutaneous pen injector albuterol sulfate 90 mcg/actuation aerosol inhaler 2 inh inhalation Q4H PRN sob aspirin 81 mg tablet,delayed release 81 mg PO PM multivitamin 1 tab PO PM cyclosporine 0.05 % eye drops (Restasis MultiDose) 1 drp ophthalmic (eye) Q12H amlodipine 2.5 mg tablet 2.5 mg PO QPM clindamycin HCl 300 mg capsule 600 mg PO DIRECTED PRN 1 HR PRIOR TO DENTAL APPT. ferrous gluconate 324 mg (38 mg iron) tablet 324 mg PO QPM hydrochlorothiazide 25 mg tablet 25 mg PO QAM lisinopril 40 mg tablet 40 mg PO QPM ibuprofen 600 mg tablet 600 mg PO Q8H PRN pain tirzepatide 7.5 mg/0.5 mL subcutaneous pen injector 7.5 mg (0.5 mL) subcut Q7D metformin 500 mg tablet 500 mg PO QPM omeprazole 20 mg capsule,delayed release 20 mg PO QPM Continue as directed clindamycin HCl 300 mg capsule 600 mg PO DIRECTED PRN 1 HR PRIOR TO DENTAL APPT. (if needed) ASK your surgeon for instructions ibuprofen 600 mg tablet 600 mg PO Q8H PRN pain ASK your prescriber and surgeon aspirin 81 mg tablet,delayed release 81 mg PO PM STOP 7 days prior to surgery tirzepatide 7.5 mg/0.5 mL subcutaneous pen injector 7.5 mg (0.5 mL) subcut Q7D DO NOT take the morning of surgery hydrochlorothiazide 25 mg tablet 25 mg PO QAM Take morning of surgery With a small sip of water, OTHERWISE NOTHING TO EAT OR DRINK AFTER MIDNIGHT: albuterol sulfate 90 mcg/actuation aerosol inhaler 2 inh inhalation Q4H PRN sob (use if needed; please bring rescue inhaler with you to hospital day of surgery if possible) cyclosporine 0.05 % eye drops (Restasis MultiDose) 1 drp ophthalmic (eye) Q12H Take evening before surgery albuterol sulfate 90 mcg/actuation aerosol inhaler 2 inh inhalation Q4H PRN sob (if needed) multivitamin 1 tab PO PM cyclosporine 0.05 % eye drops (Restasis MultiDose) 1 drp ophthalmic (eye) Q12H amlodipine 2.5 mg tablet 2.5 mg PO QPM ferrous gluconate 324 mg (38 mg iron) tablet 324 mg PO QPM lisinopril 40 mg tablet 40 mg PO QPM metformin 500 mg tablet 500 mg PO QPM omeprazole 20 mg capsule,delayed release 20 mg PO QPM Other Notes If you have any questions please call us at [phone] or [phone] or [phone] or [phone]
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
[~2024-01-04 08:50] MED LIST changes: -ACET-24 PO; -ASPEC325 PO; -ATEN-171 PO; +BUPIVACAINE 0.5 % 5 MG/1 ML PF 10ML VIAL ONE; -FRRG PO; -GLC/500 PO; -MULT-506 PO; +ROPIVACAINE 0.5% 5 MG/ML 30 ML VIAL ONE; -RXC5 PO; -VNTHFA/IN INH
[2024-01-04] MEDS ORDERED: PROPOFOL IV EMULSION 10 MG/ML 20 ML VIAL IV ONE ×3 (09:00→12:30)
[2024-01-04] MEDS ORDERED: MIDAZOLAM HCL 1 MG/ML 2ML VIAL ONE ×2 (09:00→11:00)
[2024-01-04] MEDS: CeleBREX 200 MG CAP PO SCH (09:28)
[2024-01-04] MEDS: FAMOTIDINE 20 MG TAB PO SCH (09:28)
[2024-01-04] MEDS: METOCLOPRAMIDE HCL 10 MG TABLET PO SCH (09:28)
[2024-01-04] MEDS: ACETAMINOPHEN 500 MG TAB PO SCH ×2 (09:28→15:50)
[2024-01-04] MEDS: Scopolamine 1 MG TDSY TD SCH (09:31)
[2024-01-04] MEDS: LR 60ML/HR IV SCH (09:32)
[2024-01-04] MEDS: LR 500ML BOLUS, THEN 15ML/HR IV SCH (09:40)
[2024-01-04] MEDS ORDERED: fentaNYL citrate PF 100 MCG/2 ML VIAL IV PRN (09:46)
[2024-01-04] MEDS ORDERED: ePHEDrine sulfate 50 MG/ML AMP IV PRN (09:46)
[2024-01-04] MEDS ORDERED: ATROPINE SULFATE 0.1 MG/ML 10ML SYR IV PRN (09:46)
[2024-01-04] MEDS ORDERED: DROPERIDOL 5 MG/2 ML VIAL IV PRN (09:46)
--- NOTE | 2024-01-04 10:46 | History & Physical Bridge Note ---
Date of Service January 04, 2024 History & Physical Bridge Note I have examined the patient, reviewed the History & Physical and in the interval since the performance of the History & Physical I have noted the following changes of clinical significance: no changes noted
[2024-01-04] MEDS: ceFAZolin 2000MG 2,000 MG/15 ML SYR IV SCH ×2 (11:09→17:42)
[2024-01-04] MEDS: TRANEXAMIC ACID 1,000 MG **IV Intra-op IV SCH (12:07)
[2024-01-04] MEDS: ROPIV 0.5% 246mg, Ketorolac 30mg, EPINEPHrine 0.5mg in NSS INFIL SCH (12:07)
[2024-01-04] MEDS: ORTHO JOINT ANESTHETIC ONE (12:07)
--- NOTE | 2024-01-04 13:02 | Operative Report ---
PG Post Operative Report Pre & Post Diagnosis Operation Date: 01/04/24 10:40 Pre-Op Diagnosis: Degenerative Joint Disease Left Knee Post-Op Diagnosis: Degenerative Joint Disease Left Knee I identified the patient and participated in the time-out.: Yes Procedure Operation Date: 01/04/24 10:40 Actual Procedures p Left Total Knee Arthroplasty, Cemented(Left) - Donny Krishna MD Surgeon Donny Krishna MD Circular Knife Cutter Machine Jose David Cavazos PA-C Estimated Blood Loss 50 Findings Consistent with Post-Op Diagnosis Operative findings were advanced left knee DJD. She had extensive grade 4 [id number] disease of the anteromedial compartment with significant eburnation. Osteophytes primarily medially. She had slight fixed deformity to her knee with a slight flexion contracture. A moderate to large knee joint effu janett. Specimens Left knee sent for pathology. Anesthesia Type Spinal MAC Complications none Disposition Accompanied Patient To Recovery: No Indications Patient is a 63-year-old female is had a long history of knee pain discomfort and arthritis. She had her right knee replaced about 7 years ago and done pretty well from this. It looks like her tibial tray is got loose and settled to some degree. Really not much in the way of symptoms. She developed progressive pain in her left knee. She failed conservative measures. X-rays show advanced left knee arthritis. She elected proceed with a total knee arthroplasty. We did elect to place a tibial stem due to the observation that the right tibial tray seem to drift into varus. Description of Procedure Operative implants consist of: 1 Biomet Vanguard size 65 right posterior stabilized femoral component. 2. Biomet size 67 tibial tray with a 80 x 16 mm stem with a 5 mm offset and a small cruciate wing. 3. 10 mm post stabilized polyethylene insert. 4. 31 x 8 all poly patella. The patient was taken the operating, identified, placed on the operating table in the supine position but all contact areas were properly padded. IV antibiotics tried by anesthesia team. A spinal anesthetic and adductor canal block had provided in the holding area. A Montoya catheter was placed in sterile fashion to the left joint was then placed in the left lower extremity was then prepped and draped in usual sterile fashion. The left leg was elevated and exsanguinated with use of an Esmarch and tourniquet placed at 300 mmHg. An anterior approach the left knee was then performed to longitudinal incision centered over the patella. Sharp dissection carried through subcutaneous tissue down the extensor mechanism. A medial parapatellar arthrotomy incision was made. Some subperiosteal dissection was carried out medially. The fat pad was resected from Neath patella tendon. Lateral patellofemoral ligament was released. Patella subluxated laterally and the knee was flexed. The osteophytes taken off distal femur. The ACL PCL were then released in the distal femur and the tibia subluxated anteriorly. The tibial eminence was resected. I then reamed the IM canal up to a size 16. The IM vesna was left in place and the proximal tibial cut was made to take 2 mm off the medial side. Some osteophytes taken off medially. The tibia sized to a size 67. The proximal tibia was prepared for an 80 mm x 16 mm offset stem with a 5 mm offset and a small cruciate wing. This trial implant was assembled and placed. Attention drawn the femur. The distal femur examined the sharp drop with intramedullary canal was suction. A left 5 degree valgus cutting guide was placed. The distal femoral cutting block was pinned in place. Distal femoral cut was made to take an additional 3 mm of bone off distal femur. The femur was then sized to a size 65. The AP cutting block was pinned parallel to the epicondylar axis which was 4 degrees of external rotation. The anterior cut, anterior chamfer, posterior cut, posterior chamfer cuts were made. The box cutting guide was placed in the just slight lat erally. The box cut was made. The knee was flexed with the remnants of the medial lateral menisci were excised with the osteophytes taken off the posterior aspect the femur. A trial femoral component was placed. We then trialed the knee and the 10 mm insert fit most appropriately. Attention drawn the patella. The patella was cleaned of all soft tissue. Patella thickness measured 22 mm in thickness was cut down to 14. Was sized to a size 31 patella. The lug holes were drilled for 31 patella. The lateral osteophyte was removed. Patella button was placed. Knee was taken through range of motion and the patella tracked nicely with no thumbs test. Attention drawn to placing permanent components. All trial components were removed. Bone plug was placed in the distal femur limit blood loss. A double batch Palacos G cement was mixed. A Biomet Vanguard size 65 left posterior stabilized femoral component, a size 67 Vanguard III 60 tibial tray with a 16 x 80 mm stem with 5 mm offset and a small cruciate wing, a 10 mm post stabilized polyethylene insert, and a 31 x 8 all poly patella then cemented in place. Knee was brought out into full extension till the cement hardened. Final cement check was then performed. Pericapsular tissues were injected total 100 cc of Ortho mix. The patient did receive 1 g of tranexamic acid but the tourniquet was then let down for final tourniquet time 66 minutes. Hemostasis assured use electrocautery. The wound was once again irrigated. The extensor Metros then closed with combination 1 PDS suture #1 Vicryl suture in a [id number] fashion. Extensor Meclomen checked found to be intact with subcutaneous tissue then closed with 2 Dexon suture in a buried interrupted fashion skin was closed skin rosalia. Leg was then cleaned and dried a sterile dressing with Xeroform, 4 fours, sterile cast padding, Valeriano bandage were applied. Patient then transferred to the recovery room in stable condition. Patient tolerated the procedure well and there were no complications. Jose David Cavazos, my physician assistant property manager, was present for the entire procedure. His assistance was essential and required for appropriate patient positioning, prepping and draping, surgical exposure, performing the technical details of the operation, placement the implants, closure of the wound, and placement of the sterile bandage. I attest to the content of the Intraoperative Record and any orders documented therein. Any exceptions are noted below.
--- NOTE | 2024-01-04 13:17 | XRay Report ---
XR knee LT 1 or 2V routine CLINICAL HISTORY: Surgical Post Op TECHNIQUE: 2 views of the left knee were obtained. Comparison: Comparison is made to left leg radiograph 09/23/2023 FINDINGS: Patient is status post total knee arthroplasty with expected postsurgical changes including soft tiss ue swelling and subcutaneous emphysema. No periarticular lucency or hardware fracture is seen. IMPRESSION: Expected postoperative appearance status post placement of total knee arthroplasty. ACT 112: Negative or not required by law. Electronically signed by: Werner Donald M.D. 01/04/2024 1:16 PM
--- NOTE | 2024-01-04 13:21 | Anesthesiology Progress Note ---
Date of Service January 04, 2024 Anesthesia Post Procedure Vital Signs Vital Signs: Temp Pulse Pulse Resp BP BP Pulse Ox 01/04/24 13:03 36.7 C 95 H 16 137/60 96 01/04/24 09:32 01/04/24 09:16 36.7 C 66 20 147/75 H 95 O2 Del Method O2 Flow Rate 01/04/24 13:03 Oxymask 6 01/04/24 09:32 Room Air 01/04/24 09:16 Room Air Pain Intensity Right Shoulder: Pain Intensity: 4 Notes Mental Status: alert / awake / arousable Patient Amnestic to Procedure: Yes Nausea / Vomiting: adequately controlled Pain: adequately controlled Airway Patency, RR, SpO2: stable & adequate BP & HR: stable & adequate Hydration State: stable & adequate Neuraxial Anesthesia: was administered and sensory block is resolving Anesthetic Complications: no major complications apparent
--- NOTE | 2024-01-04 14:25 | Anesthesiology Progress Note ---
Date of Service January 04, 2024 Anesthesia Post Procedure Vital Signs Vital Signs: Temp Pulse Pulse Resp BP BP Pulse Ox 01/04/24 14:20 67 20 129/63 96 01/04/24 14:10 69 20 119/58 L 97 01/04/24 14:00 67 15 126/52 L 94 01/04/24 13:50 70 19 130/57 L 95 01/04/24 13:40 69 16 133/57 L 97 01/04/24 13:30 74 17 134/57 L 96 01/04/24 13:20 77 20 128/60 95 01/04/24 13:10 88 16 137/62 96 01/04/24 13:03 36.7 C 95 H 16 137/60 96 01/04/24 09:32 01/04/24 09:16 36.7 C 66 20 147/75 H 95 O2 Del Method O2 Flow Rate 01/04/24 14:20 Room Air 01/04/24 14:10 Room Air 01/04/24 14:00 Room Air 01/04/24 13:50 Room Air 01/04/24 13:40 Room Air 01/04/24 13:30 Room Air 01/04/24 13:20 Room Air 01/04/24 13:10 Room Air 01/04/24 13:03 Oxymask 6 01/04/24 09:32 Room Air 01/04/24 09:16 Room Air Pain Intensity Right Shoulder: Pain Intensity: 4 Transfer of Care Handoff Completed per policy Notes Mental Status: alert / awake / arousable and participated in evaluation Patient Amnestic to Procedure: Yes Nausea / Vomiting: adequately controlled Pain: adequately controlled Airway Patency, RR, SpO2: stable & adequate BP & HR: stable & adequate Hydration State: stable & adequate Anesthetic Complications: no major complications apparent and Pt Satisfied with anesthetic care
[2024-01-04] MEDS ORDERED: PHARMACY GLYCEMIC MGMT CONSULT PRN (15:05)
[2024-01-04] MEDS ORDERED: bisacodyL 10 MG SUPP PR PRN (15:05)
[2024-01-04] MEDS ORDERED: ONDANSETRON INJ 2 MG/ML 2 ML VIAL IV PRN (15:05)
[2024-01-04] MEDS ORDERED: CARBOHYDRATES FOR HYPOGLYCEMIA PO PRN (15:05)
[2024-01-04] MEDS ORDERED: DEXTROSE 50% 50 ML SYRINGE IV PRN (15:05)
[2024-01-04] MEDS ORDERED: METOCLOPRAMIDE HCL INJ 5 MG/ML 2 ML VIAL IV PRN (15:05)
[2024-01-04] MEDS ORDERED: MAGNESIUM HYDROXIDE SUSP 30 ML UDC PO PRN (15:05)
[2024-01-04] MEDS ORDERED: ALUMINUM/MAGNESIUM SUSP 30 ML UDC PO PRN (15:05)
[2024-01-04] MEDS ORDERED: GLUCOSE 10 TAB/TUBE PO PRN (15:05)
[2024-01-04] MEDS ORDERED: ALBUTEROL HFA 8 GM INHALER INH PRN (15:05)
[2024-01-04] MEDS ORDERED: GLUCOSE 40% GEL 15 GM TUBE PO PRN (15:05)
[2024-01-04] MEDS ORDERED: TIRZEPATIDE 7.5 MG/0.5 ML SQ SCH (15:05)
[2024-01-04] MEDS ORDERED: HYDROmorphone HCL 2 MG TAB PO PRN ×2 (15:05)
[2024-01-04] MEDS ORDERED: NALOXONE HCL 0.4 MG/1 ML VIAL/CARP IV PRN (15:05)
[2024-01-04] MEDS ORDERED: GLUCAGON FOR INJ 1 MG VIAL SQ PRN (15:05)
[2024-01-04] MEDS ORDERED: ARTIFICIAL TEARS OP PRN (15:18)
--- NOTE | 2024-01-04 15:39 | Pharmacy Report ---
Pharmacy Glycemic Short Note 2 - Date of Service January 04, 2024 - Glycemic Short BSG Results (Last 24 hours): 01/04/24 09:22 POC Glucose 106 H OUTPATIENT ANTIDIABETIC REGIMEN: * metformin 500 mg QPM; Tirzepatide 7.5 mg sq q7D * A1c 5.7% 12/06/23 ASSESSMENT: * Patient admitted POD #0 following Left total knee arthroplasty, BSG this AM 106 mg/dL * A1c indicates good outpatient control, will initiate weight based stress of 1 novolog at this time. * Steroids scheduled to start tomorrow morning (dex 10 mg IV daily)- will need to re-evaluate need for basal at that time PLAN FOR INPATIENT GLYCEMIC CONTROL: * Hold outpatient oral diabetes medications * Basal insulin * hold * Bolus insulin * NovoLog per scale ACHS or Q6hrs while NPO * Goal Range: Low 110 mg/dL - High 140 mg/dL * Correction Factor: 45 mg/dL/unit * Nutritional / Prandial insulin per carb ratio of 1 unit per 15 grams CHO consumed
[2024-01-04] MEDS: SODIUM CHLORIDE 0.9% 1,000 ML IV SCH (15:49)
[2024-01-04] MEDS: Scopolamine CHECK PATCH PLACEMENT SCH (15:50)
[2024-01-04] MEDS: ASCORBIC ACID 500 MG TAB PO SCH (15:50)
[2024-01-04] MEDS: INSULIN ASPART PER UNIT CHARGE SC SCH (17:41)
[2024-01-04] MEDS: SENNA 8.6 MG TAB PO SCH (20:33)
[2024-01-04] MEDS: FERROUS GLUCONATE 324 MG TAB PO SCH (20:33)
[2024-01-04] MEDS: TRANEXAMIC ACID / 0.7% NACL 1,000 MG/100 ML BAG IV SCH (20:33)
[2024-01-04] MEDS: ASPIRIN 81 MG ECTAB PO SCH (20:34)
[2024-01-04] MEDS: KETOROLAC TROMETHAMINE 15 MG/ML VIAL IV SCH (20:34)
[2024-01-04] MEDS: PANTOprazole 40 MG TAB PO SCH (20:34)
[2024-01-04] MEDS: amLODIPine BESYLATE 5 MG TAB PO SCH (20:34)
[2024-01-04] MEDS: DOCUSATE SODIUM 100 MG CAP PO SCH (20:35)
[2024-01-04] MEDS: lisinopril 40 MG TAB PO SCH (20:35)
[2024-01-04] MEDS ORDERED: NON-FORMULARY MEDICATION (Multivitamin Tablet) PO SCH (21:00)
[2024-01-04] MEDS ORDERED: SENNA 8.6 MG TAB PO SCH (21:00)
[2024-01-04] MEDS: HYDROmorphone INJ 0.5 MG/0.5 ML SYR IV PRN (23:10)
[2024-01-05 06:48] LABS: Hematocrit (blood only) 33.3 % (37.0-47.0); Hemoglobin 10.8 g/dl (12.0-16.0); Mean Corpuscular Hgb Conc 32.4 g/dL (32.0-36.0); Mean Corpuscular Volume 83.3 fL (80.0-100.0); Mean Platelet Volume 11.5 fL (9.4-12.4); Platelet Count 147 K/uL (130-400); RDW Coefficient of Variation 13.3 % (11.5-14.5); RDW Standard Deviation 40.2 fL (36.4-46.3); White Blood Count 7.36 K/ul (4.8-10.8)
[2024-01-05 06:55] LABS: Calcium 8.3 mg/dl (8.6-10.3); Creatinine Clr Calc Pharmacy 92.9 ml/min; Est GFR (African American) 100.2 ml/min; Est GFR (Non-African American) 86.4 ml/min; Potassium 4.3 mmol/L (3.5-5.1)
[2024-01-05] MEDS: MULTIVITAMIN TAB PO SCH (08:01)
[2024-01-05] MEDS: hydroCHLOROthiazide 25 MG TAB PO SCH (08:01)
[2024-01-05] MEDS: dexAMETHasone 10 MG in SYRINGE 0 ML IV SCH (08:02)
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
--- NOTE | 2024-01-05 11:04 | Orthopedic Progress Note ---
Date of Service January 05, 2024 Assessment & Plan (1) Left knee DJD: (2) Status post total left knee replacement using cement: Plan 63-year-old woman POD# 1 s/p left total knee replacement, doing well overall. Pain is well-controlled. Medically stable. Postop x-rays well-appearing. She is neurologically intact. Plan: 1. DVT prophylaxis w/ TEDs, SCDs, ASA 81 mg BID. 2. PT/OT as tolerated. WBAT on the L LE. Encourage heel slides, SLR, full knee extension w/ quad sets. 3. Pain control doing well with current pain regimen. 4. Dressing change POD#2 per discharge instructions. 5. Disposition - plan to D/C home w/ [facility] later today once cleared by PT/OT. 6. F/u 2 weeks post-op w/ orthopedics (Dr. Krishna's team), or as previously scheduled, for first post-op visit. Admission and Anticipated Discharge Date Admission Date: January 04, 2024 Subjective Patient is POD# 1 s/p left total knee arthroplasty by Dr. Krishna on 01/04/2024. Patient says her pain is well-controlled this morning. Denies CP, SOB, N/V, L LE paresthesia. She has home health care arranged to come to the house for therapy. Patient says that she will be ready to go home today. Physical Exam Physical Exam: GENERAL: AA&Ox3, NAD. Pleasant, affect is calm. Sitting in bed and appears comfortable. RESPIRATORY: Normal respiratory effort with no signs of distress. CHEST/AXILLA: Chest movement symmetrical. No deformities noted. CARDIOVASCULAR: No edema noted. SKIN: [place], warm and dry. MS/EXTREMITY: Knee dressing & SU wrap c/d/i. MILLI hose donned to contralateral LE. + ankle dorsi/plantarflexion. NVI distally. Calf soft/NT. PT/DP intact. +SLR. Results & Data Vital Signs (Past 12 Hours) Vital Signs Temp Pulse Resp BP Pulse Ox O2 Del Method 01/05/24 07:46 36.7 C 59 L 16 119/66 92 Room Air 01/05/24 02:41 36.4 C L 54 L 16 119/69 95 Room Air Laboratory Results Laboratory Results - last 48 hr 01/04/24 01/04/24 01/04/24 09:22 16:16 20:16 WBC RBC Hgb Hct MCV MCH MCHC RDW Std Deviation RDW Coeff of Abimbola Plt Count MPV Sodium Potassium Chloride Carbon Dioxide Anion Gap BUN Creatinine Est Cr Clr Drug Dosing Est GFR ( Amer) Est GFR (Non-Af Amer) BUN/Creatinine Ratio Glucose POC Glucose 106 H 83 114 H Calcium 01/05/24 01/05/24 06:07 07:35 WBC 7.36 RBC 4.00 L Hgb 10.8 L Hct 33.3 L MCV 83.3 MCH 27.0 MCHC 32.4 RDW Std Deviation 40.2 RDW Coeff of Abimbola 13.3 Plt Count 147 MPV 11.5 Sodium 139 Potassium 4.3 Chloride 106 Carbon Dioxide 30 Anion Gap 3 BUN 19 Creatinine 0.73 Est Cr Clr Drug Dosing 92.9 Est GFR ( Amer) 100.2 Est GFR (Non-Af Amer) 86.4 BUN/Creatinine Ratio 26.0 H Glucose 112 H POC Glucose 112 H Calcium 8.3 L Diagnostic Findings Knee X-Ray 01/04/24 13:00 XR knee LT 1 or 2V routine CLINICAL HISTORY: Surgical Post Op TECHNIQUE: 2 views of the left knee were obtained. Comparison: Comparison is made to left leg radiograph 09/23/2023 FINDINGS: Patient is status post total knee arthroplasty with expected postsurgical changes including soft tissue swelling and subcutaneous emphysema. No periarticular lucency or hardware fracture is seen. IMPRESSION: Expected postoperative appearance status post placement of total knee arthroplasty. ACT 112: Negative or not required by law. Electronically signed by: Werner Donald M.D. 01/04/2024 1:16 PM
== END 2024-01-05 10:29 | disposition home health service (06) ==
LOC: 3E 08:50 → ASU 08:50

== ENCOUNTER 2024-03-13 17:09 | Inpatient (IN) ==
--- NOTE | 2024-03-13 17:17 | ED Triage Note ---
Date of Service March 13, 2024 Provider in Triage Author: Norma Leary History of Present Illness This patient was briefly evaluated while in triage. An abbreviated physical exam was performed. This patient is a 64-year-old Female who presents to the ED for evaluation of abdominal pain, nausea, vomiting, headache, bloody diarrhea. Symptoms started last Wednesday, then got sick again last night, and bloody diarrhea started this afternoon. No history of similar symptoms. Colonoscopies UTD. No problems with prior studies. Physical Exam VITALS: Vitals are noted on the nurse's note and reviewed by myself. GENERAL: This is a 64 year old female, in no acute distress, nondiaphoretic, well-developed well-nourished. SKIN: No obvious rashes, edema, erythema HEAD: Normocephalic atraumatic. EYES: Conjunctivae without injection, sclerae without icterus. NECK: No JVD. LUNGS: No retractions or accessory muscle use. MUSCULOSKELETAL: Normal gait. NEURO: Patient was alert and oriented to person place and time. No focal neurological deficits. Initial orders for labs and / or imaging were placed and patient was placed in the waiting area until a bed is available. Please see further documentation for the full ED course.
[2024-03-13 17:48] LABS: Basophils # (auto) 0.05 K/uL (0.00-0.20); Basophils % (auto) 0.5 %; Eosinophils # (auto) 0.26 K/uL (0.00-0.50); Eosinophils % (auto) 2.8 %; Hemoglobin 12.9 g/dl (12.0-16.0); Immature Granulocytes # (auto) 0.02 K/uL (0.01-0.20); Immature Granulocytes % (auto) 0.2 %; Lymphocytes # (auto) 1.23 K/uL (1.20-3.40); Lymphocytes % (auto) 13.1 %; Mean Corpuscular Hemoglobin 26.2 pg (25.0-34.0); Mean Corpuscular Hgb Conc 32.3 g/dL (32.0-36.0); Mean Corpuscular Volume 81.3 fL (80.0-100.0); Monocytes # (auto) 0.51 K/uL (0.11-0.59); Monocytes % (auto) 5.4 %; Platelet Count 312 K/uL (130-400); RDW Coefficient of Variation 13.3 % (11.5-14.5); RDW Standard Deviation 39.2 fL (36.4-46.3); Red Blood Count 4.92 M/uL (4.20-5.40); White Blood Count 9.37 K/ul (4.8-10.8)
[2024-03-13 18:07] LABS: Albumin Globulin Ratio 1.5 (0.9-2); Albumin Level 4.1 gm/dl (3.4-5.0); BUN Creatinine Ratio 17.6 (10-20); Bilirubin,Total 0.4 mg/dl (0.2-1.0); Calcium 9.2 mg/dl (8.6-10.3); Creatinine Clr Calc Pharmacy 97.3 ml/min; Est GFR (African American) 105.6 ml/min; Est GFR (Non-African American) 91.2 ml/min; Globulin 2.7 gm/dl (2.5-4.0); Potassium 3.7 mmol/L (3.5-5.1); Total Protein 6.8 gm/dl (6.0-8.3)
[2024-03-13 18:12] LABS: Prothrombin Time 10.6 Seconds (9.0-12.0)
[2024-03-13] MEDS: KETOROLAC TROMETHAMINE 15 MG/ML VIAL IV STA (18:49)
[2024-03-13] MEDS: SODIUM CHLORIDE 0.9% 1,000 ML IV STA (18:49)
[2024-03-13] MEDS: ONDANSETRON INJ 2 MG/ML 2 ML VIAL IV STA (18:49)
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
[2024-03-13] MEDS: OPTIRAY 320 100ml IV ONE (19:10)
[2024-03-13] MEDS: ACETAMINOPHEN 1,000 MG/100 ML VIAL IV STA (19:22)
[2024-03-13] MEDS: SODIUM CHLORIDE 0.9% 1,000 ML IV ONE (19:24)
--- NOTE | 2024-03-13 20:18 | CT Scan Report ---
Exam(s): CT ABDOMEN + PELVIS With Contrast IV Amt: 91ml optiray 320 EXAM: CT Abdomen and Pelvis With Intravenous Contrast CLINICAL HISTORY: Reason for exam: abdominal pain, bloody diarrhea. TECHNIQUE: Axial computed tomography images of the abdomen and pelvis with intravenous contrast. CTDI is size 28 mGy and DLP is 1426 mGy-cm. Automated exposure control was utilized for the study. A dose lowering technique was utilized adhering to the principles of ALARA. CONTRAST: Patient received 91ml optiray 320 of IV contrast COMPARISON: No relevant prior studies available. FINDINGS: Lung bases: Unremarkable. No mass. No consolidation. ABDOMEN: Liver: Unremarkable. No mass. Gallbladder and bile ducts: Cholecystectomy. No ductal dilation. Pancreas: Unremarkable. No mass. No ductal dilation. Spleen: Unremarkable. No splenomegaly. Adrenals: Unremarkable. No mass. Kidneys and ureters: Multiple bilateral renal cortical cysts are seen, the largest 1 of which is located on the left side and measures 6.4 cm in diameter. Stomach and bowel: There is diffuse bowel wall thickening involving the descending and sigmoid colonic wall. No obstruction. PELVIS: Appendix: Normal appendix. Bladder: Unremarkable. No mass. Reproductive: Unremarkable as visualized. ABDOMEN and PELVIS: Intraperitoneal space: Unremarkable. No free air. No significant fluid collection. Bones/joints: No acute fracture. No dislocation. Soft tissues: Unremarkable. Vasculature: Unremarkable. No abdominal aortic aneurysm. Lymph nodes: Unremarkable. No enlarged lymph nodes. IMPRESSION: Descending and sigmoid colonic wall thickening, suggestive of ischemic or inflammatory colitis Electronically signed by: Chin Cunningham MD 03/13/24 20:17 PM
[2024-03-13 20:53] LABS: Appearance Urine Clear (Clear); Bilirubin Urine Negative (Negative); Blood Urine Negative (Negative); Color Urine Yellow; Glucose Urine UA Negative (Negative); Ketones Urine Negative (Negative); Leukocyte Esterase Urine Negative (Negative); Nitrite Urine Negative (Negative); Protein Urine Negative (Negative); Urobilinogen Urine Negative (Negative); pH Urine 6.5 (4.5-7.5)
[2024-03-13 22:04] LABS: Adenovirus F 40/41 PCR Not Detected (NotDetected); Astrovirus PCR Not Detected (NotDetected); Campylobacter PCR Not Detected (NotDetected); Cryptosporidium PCR Not Detected (NotDetected); Cyclospora cayetanensis PCR Not Detected (NotDetected); Entamoeba histolytica PCR Not Detected (NotDetected); Enteroaggregative E.coli(EAEC) Not Detected (NotDetected); Enteropathogenic E.coli (EPEC) Not Detected (NotDetected); Enterotoxigenic E.coli (ETEC) Not Detected (NotDetected); Giardia lamblia PCR Not Detected (NotDetected); Norovirus GI/GII PCR Not Detected (NotDetected); Plesiomonas shigelloides PCR Not Detected (NotDetected); Rotavirus A PCR Not Detected (NotDetected); Salmonella PCR Not Detected (NotDetected); Sapovirus PCR Not Detected (NotDetected); Shiga-like Toxin E.coli (STEC) Not Detected (NotDetected); Shigella/Enteroinvasive E.coli Not Detected (NotDetected); Vibrio cholerae PCR Not Detected (NotDetected); Vibrio species PCR Not Detected (NotDetected); Yersinia enterocolitica PCR Not Detected (NotDetected)
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
[2024-03-14] MEDS ORDERED: GLUCOSE 40% GEL 15 GM TUBE PO PRN (02:22)
[2024-03-14] MEDS ORDERED: HYDROmorphone INJ 0.5 MG/0.5 ML SYR IV PRN ×2 (02:22)
[2024-03-14] MEDS ORDERED: ALBUTEROL HFA 8 GM INHALER INH PRN (02:22)
[2024-03-14] MEDS ORDERED: DEXTROSE 50% 50 ML SYRINGE IV PRN (02:22)
[2024-03-14] MEDS ORDERED: CARBOHYDRATES FOR HYPOGLYCEMIA PO PRN (02:22)
[2024-03-14] MEDS ORDERED: GLUCOSE 10 TAB/TUBE PO PRN (02:22)
[2024-03-14] MEDS ORDERED: GLUCAGON FOR INJ 1 MG VIAL SQ PRN (02:22)
[2024-03-14] MEDS ORDERED: NITROGLYCERIN SL 0.4 MG/TAB TAB SL PRN (02:22)
[2024-03-14] MEDS ORDERED: ONDANSETRON INJ 2 MG/ML 2 ML VIAL IV PRN (02:22)
[2024-03-14] MEDS: INSULIN ASPART PER UNIT CHARGE SC SCH ×2 (02:55→20:48)
[2024-03-14] MEDS: SODIUM CHLORIDE 0.9% 1,000 ML IV SCH (03:04)
[2024-03-14] MEDS: ERTAPENEM SODIUM 10 ML IV STA (03:04)
[2024-03-14 06:27] LABS: Basophils # (auto) 0.04 K/uL (0.00-0.20); Basophils % (auto) 0.5 %; Eosinophils # (auto) 0.31 K/uL (0.00-0.50); Eosinophils % (auto) 4.1 %; Hematocrit (blood only) 36.2 % (37.0-47.0); Hemoglobin 11.7 g/dl (12.0-16.0); Immature Granulocytes # (auto) 0.03 K/uL (0.01-0.20); Immature Granulocytes % (auto) 0.4 %; Lymphocytes # (auto) 0.99 K/uL (1.20-3.40); Lymphocytes % (auto) 13.3 %; Mean Corpuscular Hemoglobin 26.2 pg (25.0-34.0); Mean Corpuscular Hgb Conc 32.3 g/dL (32.0-36.0); Monocytes # (auto) 0.45 K/uL (0.11-0.59); Neutrophils # (auto) 5.65 K/uL (1.40-6.50); Neutrophils % (auto) 75.7 %; Platelet Count 262 K/uL (130-400); RDW Coefficient of Variation 13.3 % (11.5-14.5); RDW Standard Deviation 38.8 fL (36.4-46.3); Red Blood Count 4.47 M/uL (4.20-5.40); White Blood Count 7.47 K/ul (4.8-10.8)
[2024-03-14] MEDS: ACETAMINOPHEN 325 MG TAB PO PRN (06:30)
[2024-03-14 06:43] LABS: BUN Creatinine Ratio 13.3 (10-20); Calcium 8.5 mg/dl (8.6-10.3); Creatinine Clr Calc Pharmacy 110.3 ml/min; Est GFR (African American) 110.1 ml/min; Magnesium 1.8 mg/dl (1.7-2.4); Potassium 3.7 mmol/L (3.5-5.1)
[2024-03-14 07:53] LABS: Estimated Average Glucose 108 mg/dl; Hemoglobin A1C 5.4 % (4.5-5.6)
[2024-03-14] MEDS: PANTOprazole 40 MG in SYRINGE 0 ML IV SCH (08:13)
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
[2024-03-14] MEDS: KETOROLAC TROMETHAMINE 15 MG/ML VIAL IV ONE (10:36)
[2024-03-14 11:05] LABS: Hematocrit (blood only) 35.5 % (37.0-47.0); Hemoglobin 11.6 g/dl (12.0-16.0)
--- NOTE | 2024-03-14 12:02 | Hospitalist Progress Note ---
Date of Service March 14, 2024 Assessment & Plan (1) BRBPR (bright red blood per rectum): Plan: 64-year-old female with past medical history significant for type 2 diabetes, obstructive sleep apnea on CPAP, obesity, hypertension, GERD, myalgia and myositis, anemia, Sjogren's syndrome, history of endometrial carcinoma, history of COVID, comes because of abdominal pain and blood per rectum. Patient states she had abdominal pain last week but that got resolved. But since last night the pain is coming back on and off comes in waves mostly all over the abdomen severe in nature associate with nausea and vomiting. And today she had a few episodes of blood per rectum. Denies any fevers. Micturating okay. No chest pain or shortness of breath. No headache or dizziness. Vision is okay. No runny nose or sore throat or cough. No difficulty swallowing. Currently resting comfortably and hemodynamics stable. In December she had left knee replacement and ambulating with a cane currently. Bright red blood per rectum Abdominal pain CT scan showing descending and sigmoid colon wall thickening suggestive ischemic or inflammatory colitis Hemoglobin 12.9 Empirically placed on IV Invanz IV fluids N.p.o. IV Dilaudid as needed Blood consent obtained H&H every 6 hours IV Protonix 40 mg twice daily Will hold aspirin will follow stool studies Telemetry Consult GI Diabetes type 2 Hold metformin and Mounjaro Sliding scale Will monitor Hypertension On amlodipine lisinopril hydrochlorothiazide Will hold hydrochlorothiazide Will monitor Obstructive sleep apnea CPAP nightly GERD Currently on IV Protonix History of diastolic dysfunction Monitor for volume overload DVT prophylaxis SCDs Disposition Telemetry Full code I agree with the assessment and workup by Dr. Cox Admission and Anticipated Discharge Date Admission Date: March 14, 2024 Subjective Chart, 24-hour data reviewed Patient admitted very early this a.m. Patient seen in ED holding room with her spouse present No nausea or vomiting She has not had any bowel movements or further bleeding Patient has been seen by GI Physical Exam Physical Exam: General- adult female seen resting in bed Head- atraumatic Eyes- PERRL, EOMI, anicteric ENT- oropharynx clear Neck- supple, no JVD, no adenopathy, no thyromegaly; carotids +2/2, no bruits appreciated Lungs- clear to auscultation and percussion Heart- regular rhythm; no murmur, no gallop, no rub appreciated Abdomen- normal bowel sounds, mild generalized tenderness, no masses or hepatosplenomegaly Extremities- no pretibial edema, no calf tenderness; peripheral pulses intact Neuro- alert, oriented x 3; PERRL, EOMI; no focal deficits noted Skin- warm & dry Results & Data Results & Data Vital Signs (Past 12 Hours) Vital Signs Pulse Pulse Resp BP Pulse Ox Pulse Ox O2 Del Method 03/14/24 10:37 68 16 164/85 H 92 Room Air 03/14/24 08:14 71 18 143/79 H 96 Room Air 03/14/24 07:05 64 03/14/24 06:33 68 19 152/75 H 95 Room Air 03/14/24 03:52 65 17 149/95 H 94 Room Air 03/14/24 03:52 94 O2 Del Method 03/14/24 10:37 03/14/24 08:14 03/14/24 07:05 03/14/24 06:33 03/14/24 03:52 03/14/24 03:52 Room Air
[2024-03-14] MEDS ORDERED: PNEUMOCOCCAL VACCINE (PCV20) 20-VAL CONJ-DIP CRM/PF 0.5 ML SYR IM ONE (16:00)
[2024-03-14 17:09] LABS: Hematocrit (blood only) 37.1 % (37.0-47.0); Hemoglobin 11.8 g/dl (12.0-16.0)
[2024-03-14] MEDS ORDERED: Nursing to Pharmacy Communication SCH (19:15)
[2024-03-14] MEDS: amLODIPine BESYLATE 5 MG TAB PO SCH (20:49)
[2024-03-14] MEDS: lisinopril 40 MG TAB PO SCH (20:50)
[2024-03-14] MEDS: MULTIVITAMIN TAB PO SCH (20:50)
[2024-03-14] MEDS: FERROUS GLUCONATE 324 MG TAB PO SCH (21:12)
[2024-03-15 04:07] LABS: Hematocrit (blood only) 33.3 % (37.0-47.0); Hemoglobin 10.9 g/dl (12.0-16.0); Mean Corpuscular Hemoglobin 26.3 pg (25.0-34.0); Mean Corpuscular Hgb Conc 32.7 g/dL (32.0-36.0); Mean Corpuscular Volume 80.4 fL (80.0-100.0); Mean Platelet Volume 10.2 fL (9.4-12.4); Platelet Count 244 K/uL (130-400); RDW Coefficient of Variation 13.2 % (11.5-14.5); RDW Standard Deviation 37.8 fL (36.4-46.3); Red Blood Count 4.14 M/uL (4.20-5.40); White Blood Count 6.06 K/ul (4.8-10.8)
[2024-03-15 04:26] LABS: BUN Creatinine Ratio 11.7 (10-20); Calcium 8.6 mg/dl (8.6-10.3); Creatinine Clr Calc Pharmacy 109.9 ml/min; Est GFR (African American) 110.1 ml/min; Magnesium 1.8 mg/dl (1.7-2.4); Potassium 3.5 mmol/L (3.5-5.1)
[2024-03-15] MEDS: ERTAPENEM SODIUM 1,000 MG in SYRINGE 0 ML IV SCH (05:59)
--- NOTE | 2024-03-15 15:07 | Hospitalist Progress Note ---
Date of Service March 15, 2024 Assessment & Plan (1) BRBPR (bright red blood per rectum): Plan 64-year-old female with past medical history significant for type 2 diabetes, obstructive sleep apnea on CPAP, obesity, hypertension, GERD, myalgia and myositis, anemia, Sjogren's syndrome, history of endometrial carcinoma, history of COVID presenting with abdominal pain and blood per rectum. Patient states she had abdominal pain last week but that got resolved. But since last night the pain is coming back on and off comes in waves mostly all over the abdomen severe in nature associated with nausea and vomiting. On day of admission, she had a few episodes of blood per rectum. In December, she had a left knee replacement and ambulates with a cane currently. Bright red blood per rectum Abdominal pain Colitis CT scan showing descending and sigmoid colon wall thickening suggestive of ischemic or inflammatory colitis Hemoglobin 12.9--->10.9 currently Empirically placed on IV Invanz IV fluids Advance diet as tolerated PRN pain meds IV Protonix 40 mg twice daily Hold aspirin Stool studies negative Telemetry monitoring GI consulted, appreciate recs. recommended/stated the following: "Continue to monitor H/H -Continue IV antibiotics per primary team -Continue to monitor for ongoing overt GI bleeding -Colonoscopy in the outpatient setting in 6-8 weeks" Continue to monitor Diabetes type 2 Hold metformin and Mounjaro Sliding scale Will monitor Hypertension On amlodipine lisinopril hydrochlorothiazide Hold hydrochlorothiazide Will monitor Obstructive sleep apnea CPAP nightly GERD Currently on IV Protonix History of diastolic dysfunction Monitor for volume overload Diet: advance as tolerated, currently on clears DVT prophylaxis: SCDs Dispo: PT/OT ordered for further recs Admission and Anticipated Discharge Date Admission Date: March 14, 2024 Subjective Pt seen in the AM. States she still does not feel ready to go home. Has nausea. Tried clears for breakfast and so far tolerating well. Review of Systems Review of Systems: All systems reviewed & are unremarkable except as noted in Subjective Physical Exam Physical Exam: General: Alert, oriented. No acute distress Skin: noted surgical scar on left knee Psych: Appropriate mood and affect Neuro: No gross deficits in bed HEENT: NC/AT CV: RRR Resp: Breath sounds clear bilaterally, no increased effort of breathing. Abdomen: Soft Extremities: noted surgical scar on left knee, noted swelling, in brace Results & Data Results & Data Vital Signs (Past 12 Hours) Vital Signs Temp Pulse Pulse Resp BP Pulse Ox O2 Del Method 03/15/24 11:27 36.3 C L 66 16 159/73 H 96 Room Air 03/15/24 07:29 36.7 C 72 16 164/80 H 97 Room Air 03/15/24 06:59 67 03/15/24 04:04 36.3 C L 62 16 137/67 95 CPAP
[2024-03-15 15:14] VITALS: RESP 18
[2024-03-16 05:17] LABS: Basophils # (auto) 0.04 K/uL (0.00-0.20); Basophils % (auto) 0.7 %; Eosinophils # (auto) 0.29 K/uL (0.00-0.50); Eosinophils % (auto) 5.3 %; Hematocrit (blood only) 34.6 % (37.0-47.0); Hemoglobin 11.5 g/dl (12.0-16.0); Immature Granulocytes # (auto) 0.02 K/uL (0.01-0.20); Immature Granulocytes % (auto) 0.4 %; Lymphocytes # (auto) 1.05 K/uL (1.20-3.40); Lymphocytes % (auto) 19.1 %; Mean Corpuscular Hemoglobin 26.6 pg (25.0-34.0); Mean Corpuscular Hgb Conc 33.2 g/dL (32.0-36.0); Mean Corpuscular Volume 80.1 fL (80.0-100.0); Mean Platelet Volume 9.8 fL (9.4-12.4); Monocytes # (auto) 0.37 K/uL (0.11-0.59); Monocytes % (auto) 6.7 %; Neutrophils # (auto) 3.72 K/uL (1.40-6.50); Neutrophils % (auto) 67.8 %; Platelet Count 248 K/uL (130-400); RDW Coefficient of Variation 13.2 % (11.5-14.5); RDW Standard Deviation 37.6 fL (36.4-46.3); Red Blood Count 4.32 M/uL (4.20-5.40); White Blood Count 5.49 K/ul (4.8-10.8)
[2024-03-16 05:31] LABS: BUN Creatinine Ratio 11.9 (10-20); Creatinine Clr Calc Pharmacy 111.7 ml/min; Est GFR (African American) 110.7 ml/min; Est GFR (Non-African American) 95.5 ml/min; Magnesium 1.8 mg/dl (1.7-2.4); Phosphorus 3.4 mg/dl (2.5-4.9); Potassium 3.5 mmol/L (3.5-5.1)
[2024-03-16 07:30] VITALS: TEMP 97.9
[2024-03-16 11:51] VITALS: O2SAT 96
--- NOTE | 2024-03-16 11:56 | Hospitalist Progress Note ---
Date of Service March 16, 2024 Assessment & Plan (1) BRBPR (bright red blood per rectum): Plan 64-year-old female with past medical history significant for type 2 diabetes, obstructive sleep apnea on CPAP, obesity, hypertension, GERD, myalgia and myositis, anemia, Sjogren's syndrome, history of endometrial carcinoma, history of COVID presenting with abdominal pain and blood per rectum. Patient states she had abdominal pain last week but that got resolved. But since last night the pain is coming back on and off comes in waves mostly all over the abdomen severe in nature associated with nausea and vomiting. On day of admission, she had a few episodes of blood per rectum. In December, she had a left knee replacement and ambulates with a cane currently. Bright red blood per rectum Abdominal pain Colitis CT scan showing descending and sigmoid colon wall thickening suggestive of ischemic or inflammatory colitis Hemoglobin 12.9--->10.9 currently Empirically placed on IV Invanz IV fluids Advance diet as tolerated PRN pain meds IV Protonix 40 mg twice daily Hold aspirin Stool studies negative Telemetry monitoring GI consulted, appreciate recs. recommended/stated the following: "Continue to monitor H/H -Continue IV antibiotics per primary team -Continue to monitor for ongoing overt GI bleeding -Colonoscopy in the outpatient setting in 6-8 weeks" Continue to monitor Diabetes type 2 Hold metformin and Mounjaro Sliding scale Will monitor Hypertension On amlodipine lisinopril hydrochlorothiazide Hold hydrochlorothiazide Will monitor Obstructive sleep apnea CPAP nightly GERD Currently on IV Protonix History of diastolic dysfunction Monitor for volume overload Diet: advance as tolerated, currently on clears DVT prophylaxis: SCDs Dispo: PT/OT ordered for further recs Admission and Anticipated Discharge Date Admission Date: March 14, 2024 Physical Exam Physical Exam: General: Alert, oriented. No acute distress Skin: noted surgical scar on left knee Psych: Appropriate mood and affect Neuro: No gross deficits in bed HEENT: NC/AT CV: RRR Resp: Breath sounds clear bilaterally, no increased effort of breathing. Abdomen: Soft Extremities: noted surgical scar on left knee, noted swelling, in brace Results & Data Results & Data Vital Signs (Past 12 Hours) Vital Signs Temp Pulse Pulse Resp BP Pulse Ox O2 Del Method 03/16/24 11:50 36.6 C 60 18 158/79 H 96 Room Air 03/16/24 07:48 62 03/16/24 07:30 36.6 C 62 18 150/77 H 97 Room Air 03/16/24 03:00 03/16/24 02:52 36.7 C 62 18 158/74 H 98 Room Air O2 Del Method 03/16/24 11:50 03/16/24 07:48 03/16/24 07:30 03/16/24 03:00 CPAP 03/16/24 02:52
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
[2024-03-16 15:03] VITALS: BP 168/78; PULSE 59
--- NOTE | 2024-03-20 22:14 | Coding Query ---
CODING QUERY To promote full compliance with coding requirements relating to patient care, provider participation is requested in all cases of relay shop supervisor uncertainty. Please assist us with the question(s) below: Coding Question(s): 64-year old female presenting with abdominal paon and blood per rectum. CT scan showing descending and sigmoid colon wall thickening suggestive of ischemic or inflammatory colitis Hemoglobin 12.9--->10.9 to 11.5 on discharge Empirically placed and treated with IV Invanz, discharged with 7 more days of cefdinir + flagyl. IV fluids Advance diet as tolerated. pt was tolerating solid food on day of discharge. PRN pain meds IV Protonix 40 mg twice daily, discharged with pantoprazole 40mg BID for continued use. Hold aspirin until pcp followup Stool studies negative Physician's Response(s): ____ Ischemic colitis ____ Colitis due to (Please specify) ____ Non infectious colitis __x__ Unable to determine Thank you Sarahi TURNER
== END 2024-03-16 15:43 | disposition home or self-care (01) | DRG 392 ==
LOC: ED 17:09 → SUATTDRO 03-14 01:03 → EDINP 03-14 01:03 → 4W 03-14 02:23

== ENCOUNTER 2024-05-21 15:37 | Inpatient (IN) ==
--- OUTSIDE RECORDS SUMMARY | 2024-05-21 15:43 | External Medical Summary | Summary of Care ---
Author Name Unknown Organization [facility] Address [address] [place] [address] Phone [phone] Care Team Providers Care Chief Technology Officer Name Role Phone Migdalia Paradise Norah KAMILA Primary Care Provider [phone] Reason for Visit * Reason Comments Acute Fever, nausea, vomit ing, PASTOR, trembling x this wk. Has a UTI. On macrobid. Feels that is improving. Encounter Details Date Type Department Care Team (Late st Contact Info) Description 05/20/2024 9:00 AM EDT Telemedicine [facility] [address] [facility] [place] [address] MD [address] [facility] [place], [place] [id number] Infection due to ESBL-producing Escherichia coli*; Suspected UTI Allergies Active Allergy Reactions Criticality Noted Date Comments Adhesive Tape 12/18/2009 Blisters and skin rubs off Ciprofloxacin Rash 08/15/2006 Fixed drug eruption. Severe skin rash, itchy Codeine 01/21/2012 Falling asleep, disoriented Morphine Sulfate Itching 01/27/2017 Oxycodone Abdominal pain 01/27/2017 Headaches Penicillins Rash 05/18/2000 Unsure as a child. Pt has asthma Sulfa Antibiotics 01/15/2015 documented as of this encounter (statuses as of 05/20/2024) Medications Medication Sig Dispensed Refills Start Date End Date Status LANCETS MISCIndications:DM type 2, not at goal (HCC) tests twice daily 1 Box 11 0 Active SHANIA CONTOUR TEST STRPIndications:DM type 2, not at goal (HCC) TEST 2 TIMES DAILY 100 Strip 5 3 Active Multiple Vitamins-Minerals (MULTIVITAMIN ADULT) TABS Take by mouth. Active Blood Glucose Monitoring Suppl (ONETOUCH ULTRA SYSTEM) w/Device KITIndications:Typ e 2 diabetes mellitus with hemoglobin A1c goal of less than 7.0% (HCC) Use as directed 4 times a day as needed for Hyperglycemia (high sugar) or Hypoglycemia (low sugar). Use up to four times a day as directed 1 Kit 8 Active ONETOUCH ULTRASOFT LANCETS MISCIndications:Ty pe 2 diabetes mellitus with hemoglobin A1c goal of less than 7.0% (HCC) Use as directed 4 times a day as needed for Hyperglycemia (high sugar) or Hypoglycemia (low sugar). Use up to four times a day as directed 1 Box Dosing Unit 11 9 Active Glucose Blood (ONETOUCH ULTRA BLUE) STRPIndications:Ty pe 2 diabetes mellitus with hemoglobin A1c goal of less than 7.0% (HCC) Use as directed 4 times a day as needed for Hyperglycemia (high sugar) or Hypoglycemia (low sugar). Use up to four times a day as directed 100 Strip 11 0 Active OneTouch Ultra Blue In Vitro Strip (Glucose Blood)Indications: Type 2 diabetes mellitus with hemoglobin A1c goal of less than 7.0% (HCC) Use as directed daily . E11.9 100 Strip 11 2 Active OneTouch UltraSoft LancetsIndications :Type 2 diabetes mellitus with hemoglobin A1c goal of less than 7.0% (HCC) Use as directed daily . E11.9 100 Each 3 2 Active OneTouch Ultra 2 w/Device KitIndications:Typ e 2 diabetes mellitus with hemoglobin A1c goal of less than 7.0% (HCC) Use once daily E11.9 1 Kit 2 Active Lisinopril 40 MG Oral TabletIndications: HTN, goal below 140/90 Take 1 Tablet by mouth in the morning. 90 Tablet 3 3 Active amLODIPine Besylate 2.5 MG Oral Tablet (Norvasc)Indicatio ns:HTN, goal below 140/90 TAKE ONE TABLET BY MOUTH EVERY DAY 90 Tablet 3 4 Active hydroCHLOROthiazid e 25 MG Oral Tablet (Hydrodiuril)Indic ations:HTN, goal below 140/90 TAKE ONE TABLET BY MOUTH EVERY DAY 34 Tablet 11 4 Active IBU 600 MG Oral Tablet Take 1 Tablet by mouth every 8 hours as needed. 4 Active Ventolin HFA 108 (90 Base) MCG/ACT Inhalation Aerosol Solution Inhale 2 Puffs by mouth every 4 hours as needed for Wheezing. 18 g 11 4 Active Pantoprazole Sodium 40 MG Oral Tablet Delayed Release (Protonix) Take 1 Tablet by mouth in the morning. Active Hydrocortisone (Perianal) 2.5 % External CreamIndications:H emorrhoids, external without complications Administer into the rectum 2 times a day. 28 g 3 4 Active Menthol-Zinc Oxide 0.44-20.6 % External Ointment (Calmoseptine) Apply topically to affected area as needed for Irritation. Apply to buttocks. 113 g 5 4 Active Mounjaro 7.5 MG/0.5ML Subcutaneous Solution Pen-injector (Tirzepatide)Indic ations:Type 2 diabetes mellitus with hemoglobin A1c goal of less than 7.0% ([facility]) Inject 7.5 mg under the skin once a week. 2 mL 11 4 05/17/20 25 Active Ondansetron HCl 4 MG Oral TabletIndications: Infection due to ESBL-producing Escherichia coli Take 1 Tablet by mouth every 8 hours as needed for Nausea. 30 Tablet 4 Active Nitrofurantoin Monohyd Macro 100 MG Oral Capsule (Macrobid)Indicati ons:Infection due to ESBL-producing Escherichia coli Take 1 Capsule by mouth in the morning and 1 Capsule before bedtime. 18 Capsule 4 Active Nitrofurantoin Monohyd Macro 100 MG Oral Capsule (Macrobid)Indicati ons:Suspected UTI Take 1 Capsule by mouth in the morning and 1 Capsule before bedtime. Do all this for 5 days. 10 Capsule 4 05/20/20 24 Discontinu ed(Refill) documented as of this encounter (statuses as of 05/20/2024) Active Problems Problem Noted Date Diagnosed Date Colitis 04/04/2024 History of endometrial cancer 09/14/2017 Anemia 01/05/2017 Overview: ICD-10 update of inactive term Undiagnosed cardiac murmurs 12/07/2016 HTN, goal below 140/90 09/30/2015 Overview: Per HTN Protocol #27. CODEY on CPAP 03/26/2015 Overview: PSG titration pending 03/21/15 PSG -- AHI 22.7, 252 mins <89%, elevated ETCO2 AHP Obesity hypoventilation syndrome 03/26/2015 Overview: 03/21/15 PSG -- ETCO2 with 49% TST >45 mmHg, moderate CODEY and hypoxemia Sjogren's syndrome 03/21/2012 Overview: ICD-10 update of inactive term Myalgia and myositis 05/21/2010 Type 2 diabetes mellitus wit h hemoglobin A1c goal of less than 7.0% 05/23/2009 Overview: Per Diabetes Taxonomy. ICD-10 update of inactive term ADVANCE DIRECTIVE INFORMATION 06/28/2006 Overview: No, Advance Directive brochure given to patient at prior appointment. Dermatophytosis of foot 09/29/2001 GERD (gastroesophageal reflux disease) documented as of this encounter (statuses as of 05/20/2024) Resolved Problems Problem Noted Date Diagnosed Date Resolved Date Morbid obesity due to excess calories 07/31/2019 03/22/2024 Body mass index (BMI) of 40. 0 to 44.9 in adult 07/04/2018 03/22/2024 Overview: Per Obesity protocol #1 - Per Obesity Taxonomy ICD-10 update of inactive diagnosis Chronic nonspecific lung disease 09/14/2017 10/04/2017 Endometrial cancer 01/15/2015 8 HTN, GOAL BELOW 140/80 03/14/201210/29 Overview: Per HTN Protocol #27. Other bursitis disorders 05/21/2010 Asthma with severity to be determined 01/16/2010 05/27/2012 Overview: Per Asthma Taxonomy ICD-10 update of inactive term Severe obesity with body mas s index (BMI) of 35.0 to 39.9 with serious comorbidity 10/21/2009 Overview: Per Obesity Taxonomy ICD-10 update of inactive diagnosis HTN, GOAL BELOW 130/80 08/21/200903/17 Overview: Per HTN Taxonomy. Type 2 diabetes mellitus wit h hemoglobin A1c goal of less than 7.0% 03/29/2009 05/23/2009 Overview: Per Diabetes Taxonomy. ICD-10 update of inactive term OBESITY, UNSPECIFIED 11/19/2005 010 Overview: Per Obesity Taxonomy Uterine leiomyoma 11/19/2005 03/25/2018 HTN, goal below 140/90 08/06/200308/21 Overview: Per HTN Taxonomy. ASTHMA W STATUS ASTHMAT 12/25 Female infertility 8 Varicella without complication 03/25/2018 documented as of this encounter (statuses as of 05/20/2024) Immunizations Name Administration Dates Next Due COVID-19 mRNA, LNP-s, No Pre serve, 2-Dose Series (Compring) 03/21/2021,08/05/2020,07/16/2020 H1N1 2009 Influenza, IM 05/09/2009 Hepatitis B, 20+ yrs 03/21/2014,10/18/2013,09/12 PPD 12/10/2015,09/12/2013 Pneumococcal Conjugate Vacci ne, 20-valent ([id number]) 03/02/2022 Pneumococcal Polysaccharide PPV23 (Pneumovax) 09/11/2008 RSV Vac., Bivalent, Perfusio n F, Pf,0.5 Ml (Abrysvo) 04/04/2024 Seasonal Influenza Vac., MDV , IM, 0.5 mL (Fluzone) 04/20/2015,05/04/2013,05/15/2012,04/25,03/29/2009,05/19/2008,05/19/2006 Seasonal Influenza, High Dos e, Trivalent, PF, IM (Fluzone HD) 04/04/2024 Seasonal Influenza, PF, 6 M & above, IM , (FluLaval or Fluzone) 05/17/2022,05/07/2021,05/03/2020 Seasonal Influenza, QUAD, wi th Preserv, 6 mons & Above, 0.5 mL, IM 05/10/2018 Seasonal Influenza, Quadriva lent Hd (Fluzone Hd) 05/04/2023 Seasonal Influenza, Quadriva lent, No Preserve, IM 05/04/2019 Seasonal Influenza, Quadriva lent,with Preserve, 3 yr & above, IM 04/30/2017 TD, Preservative Free 01/20/2019 TDAP, Age 7 and older, IM (Adacel) 09/11/2008 Zoster Vaccine Recombinant (Shingrix) 05/26/2018 ,03/25/2018 documented as of this encounter Social History Tobacco Use Types Packs/Day Years Used Date Smoking Tobacco: Never Smokeless Tobacco: Never Alcohol Use Standard Drinks/Week Comments Yes 0 (1 standard drink = 0.6 oz pur e alcohol) very rare, couple times a year PHQ-2 Answer Date Recorded PHQ Adult Total Score 0 04/14/2023 Hunger Vital Sign Answer Date Recorded Within the past 12 months, y ou worried that your food would run out before you got the money to buy more. Never true 04/13/20 23 Within the past 12 months, t he food you bought just didn't last and you didn't have money to get more. Never true 04/13/2023 Childcare Answer Date Recorded Do you feel overwhelmed with taking care of a child, family member or friend? No 04/13/2023 Does your family need help f inding childcare? (Household - for ages 0-17 years) Not on file 04/13/2023 Clothing Answer Date Recorded Have you been unable to get clothing when it was really needed? No 04/13/2023 Is your family able to get c lothes or diapers when needed? (Household - for ages 0-17 years) Not on file 04/13/2023 Personal Safety Answer Date Recorded Do you feel unsafe or have concerns for your saf ety? No 04/13/2023 Do you have concerns for you r family's safety? (Household - for ages 0-17 years) Not on file 04/13/2023 Utilities Answer Date Recorded Do you have trouble paying y our heating, water, or electric bill? (Adult - for ages 18 years and over) Not on file 04/16/2024 Is your family able to pay t he heat, water, or electric bill? (Household - for ages 0-17 years) Not on file 04/16/2024 Does your family have access to good internet? (Household - for ages 0-17 years) Not on file 04/16/2024 Employment Status Answer Date Recorded Are you unemployed or without regular income? No 04/13/2023 Does the household have a re gular source of income? (Household - for ages 0-17 years) Not on file 04/13/2023 Social Connections Answer Date Recorded How often do you feel lonely or isolated from those around you? (Adult - for ages 18 years and over) Not on file 04/16/2024 Financial Resource Strain Answer Date R ecorded Do you have any trouble payi ng for your medications, or do you think you might in the future? No 04/13/2023 Does your family have troubl e paying for medicine? (Household - for ages 0-17 years) Not on file 04/13/2023 Transportation Needs Answer Date Record ed READ ONLY Do you have troubl e getting a ride to medical visits or work? Never True 04/13/2023 Does your family have a hard time getting a ride to doctors visits? (Household - for ages 0-17 years) Not on file 04/13/2023 Has lack of transportation k ept you from medical appointments, meetings, work, or from getting things needed for daily living? Check all that apply. (Adult - for ages 18 years and over) Not on file 04/13/2023 Do you (or your family) have trouble finding or paying for a ride (transportation)? (Household - for ages 0-17 years) Not on file 04/13/2023 Housing Stability Answer Date Recorded Do you currently live in a s helter or have no steady place to sleep at night? No 04/13/2023 READ ONLY Do you think you a re at risk of becoming homeless? No 04/13/2023 Does your family worry about paying for your home or becoming homeless? (Household - for ages 0-17 years) Not on file 0 04/13/2023 Are you homeless or worried that you might be in the future? (Adult - for ages 18 years and over) Not on file Are you (or your family) zhou eless or worried that you might be in the future? (Household - for ages 0-17 years) Not on file Food Insecurity Answer Date Recorded Do you need food for this week? No 04/13/2023 Are you able to get enough f ood for your family? (Household - for ages 0-17 years) Not on file 04/13/2023 Does your family need food t his week? (Household - for ages 0-17 years) Not on file 04/13/2023 Do you always have enough fo od for your family? (Household - for ages 0-17 years) Not on file 04/13/2023 Sex and Gender Information Value Date Recorded Sex Assigned at Female 04/13/2023 4:28 PM EDT Gender Identity Female 04/13/2023 4:28 PM EDT Sexual Orientation Straight 04/13/2023 4: 28 PM EDT Job Start Date Occupation Industry Not on file Not on file Not on file documented as of this encounter Progress Notes * Bob Lane MD - 05/20/2024 9:15 AM EDT Images from the original note were not included. Subjective Yaneth Artis is a 64 year old female that presents for Acute (Fever, nausea, vomiting, PASTOR, trembling x this wk. Has a UTI. On macrobid. Feels that is improving. ) History of Present Illness The patient, with a history of diabetes and recent urinary tract infection (UTI), presents with ongoing symptoms of fever, nausea, and vomiting. She reports a fever of 101.4 degrees Fahrenheit, nausea, and vomiting of clear liquids, as she has not eaten since Wednesday. She has been drinking fluids and reports that her UTI symptoms have improved, with the pain subsiding and an increase in urine output. She suspects a secondary infection due to persistent symptoms. She also experienced a severe shaking episode on night, which she has never experienced before. The patient started treatment for her UTI on , after lab work was done on Wednesday. She is assisted through her antibiotic regimen and reports feeling much better in regards to her UTI symptoms. However, she still feels generally unwell. The patient has been on a dose of 7.5mg of Mounjaro for her diabetes since the beginning of the summer. She has not taken it for over a week due to feeling unwell. She was advised that she could takeit every ten days or even once every two weeks if she felt her diabetes was under control. She has noticed increased nausea since starting Mounjaro. Objective There were no vitals filed for this visit. Physical Exam VITALS: T- 101.4 I have reviewed the following results: Results LABS A1c: 5.7% (05/16/2024) Urinalysis: Escherichia coli urinary tract infection with significant resistance pattern (05/16/2024) EBSL Assessment and Plan Assessment & Plan Urinary Tract Infection Currently on Nitrofurantoin with improvement in urinary symptoms but ongoing systemic symptoms including fever, nausea, and vomiting. Concern for possible progression to pyelonephritis given systemicsymptoms and resistance pattern of E. coli isolated from urine culture. -Extend Nitrofurantoin treatment to a total of 14 days to ensure complete resolution of infection. THIS IS THE ONLY ORAL ANTIBIOTIC WITHOUT RESISTANCE -Prescribe Zofran for nausea as needed. -Advise on probiotic intake to maintain gut mk during antibiotic treatment. Diabetes Management Recent A1C of 5.7 suggesting possible overtreatment with Mounjaro 7.5mg. Patient has been inconsistently taking medication due to feeling unwell. -Consider reducing Mounjaro dose to 5mg daily to minimize side effects and risk of hypoglycemia. Discuss with weight management team. Work Status Patient currently feeling unwell and unable to work due to ongoing symptoms. -Provide work excuse for the next two nights, with potential return to work on Wednesday night if feeling improved. There are no diagnoses linked to this encounter. Wrap-Up Time: I spent a total of 20-29 minutes (exact time 26 mins) on the date of service in preparation, delivery, and documentation of the care provided to Yaneth Artis excluding any time spent in the performance of separately billed services. Text in this note was generated using an ambient documentation service. I discussed the use of a device to record and summarize our discussion today. All persons present during the encounter consented to its use. Telemedicine: Patient location: HOME. I was in a hospital or clinic location. After connecting through televideo,patient was verified with two unique identifiers. Patient (or authorized legal field service representative) was then informed that this was a Telemedicine visit and being conducted confidentially over secure lines. Methods to assure confidentiality were taken. Patient acknowledged consent and understanding of pr ivacy and security of the Telemedicine visit. The patient agreed to participate. documented in this encounter Nursing Notes * Alyson Ngo CMA - 05/20/2024 9:15 AM EDT Chief Complaint Patient presents with Acute Fever, nausea, vomiting, PASTOR, trembling x this wk. Has a UTI. On macrobid. Feels that is improving. documented in this encounter Plan of Treatment Upcoming Encounters Date Type Department Care Team (Late st Contact Info) Description 06/30/2024 10:30 AM EST [facility] [address] [facility] [place] [id number] Tawnya Morelos CRNP [address] [facility] [place] [address] 10/03/2024 9:00 AM EDT Office Visit [facility] [address] [place] [address] Paradise Negron PA-C [address] [place] [id number] Health Maintenance Due Date Last Done Comments Cologuard 2003 Sigmoidoscopy 2003 Fecal Occult Blood Test 01/05/2018 01/05/2017 DXA Scan 2023 Albumin/Creatinine Ratio 04/24/2023 022, 09/11/2020, 08/04/2019, Additional history exists Adult Wellness Visit 01/26/2024 COVID-19 Vaccine ( season) 2024 03/21/2021, 08/05/2020, 07/16/2020 Depression Screening 04/14/2024 04/14/2023 Diabetic Foot Exam 04/14/2024 04/14/2023, 0 03/02/2022, 01/31/2021, Additional history exists Mammogram 08/04/2024 08/04/2023, 11/24, 12/13/2020, Additional history exists Diabetic Eye Exam 08/26/2024 08/26/2023, , 10/07/2020, Additional history exists HbA1c 11/14/2024 05/16/2024, 03/27, 04/24/2022, Additional history exists GFR 05/16/2025 05/16/2024, 03/27, 04/24/2022, Additional history exists Lipid Panel 04/22/2028 04/22/2023, 06/25, 09/11/2020, Additional history exists Colonoscopy 09/26/2028 09/26/2018, 07/13/2008 Colorectal Cancer Screening 09/26/2028 DTap/Tdap Vaccines (3 - Td or Tdap) 01/20/2029 01/20/2019, 09/11/2008 Hepatitis B Vaccine Completed 03/21/2014, 10/18/2013, 09/12/2013 Zoster Vaccines Completed 05/26/2018, 03/25/2018 Pneumococcal Vaccine: 65+ Years Completed 03/02/2022, 09/11/2008 Influenza Vaccine (FLU shot) Completed 04/2024, 05/04/2023, 05/17/2022, Additional history exists HPV (Gardasil) Vaccine Aged Out No lo nger eligible based on patient's age to complete this topic MENINGOCOCCAL (MENACTRA/MENVEO) Aged Out No longer eligible based on patient's age to complete this topic documented as of this encounter Medical Devices Not on filedocumented as of this encounter Visit Diagnoses Diagnosis Infection due to ESBL-producing Escherichia coli- Primary Other and unspecified Escherichia coli (E. 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
--- OUTSIDE RECORDS SUMMARY | 2024-05-21 15:43 | External Medical Summary | Summary of Care ---
Author Name Unknown Organization [facility] Address [address] [facility] [address] Phone [phone] Care Team Providers Care Audio Visual Design Engineer Name Role Phone Paradise Negron PA-C Primary Care Provider [phone] Encounter Details Date Type Department Care Team (Late st Contact Info) Description 05/17/2024 Orders Only Family Practice [facility] 200 [facility] [place] [address] Paradise Negron PA-C 200 [facility] [place] [address] Allergies Active Allergy Reactions Criticality Noted Date Comments Adhesive Tape 12/18/2009 Blisters and skin rubs off Ciprofloxacin Rash 08/15/2006 Fixed drug eruption. Severe skin rash, itchy Codeine 01/21/2012 Falling asleep, disoriented Morphine Sulfate Itching 01/27/2017 Oxycodone Abdominal pain 01/27/2017 Headaches Penicillins Rash 05/18/2000 Unsure as a child. Pt has asthma Sulfa Antibiotics 01/15/2015 documented as of this encounter (statuses as of 05/18/2024) Medications Medication Sig Dispensed Refills Start Date End Date Status LANCETS MISCIndications:D M type 2, not at goal (HCC) tests twice daily 1 Box 11 0 Active SHANIA CONTOUR TEST STRPIndications:D M type 2, not at goal (HCC) TEST 2 TIMES DAILY 100 Strip 5 3 Active Multiple Vitamins-Minerals (MULTIVITAMIN ADULT) TABS Take by mouth. Active Blood Glucose Monitoring Suppl (ONETOUCH ULTRA SYSTEM) w/Device KITIndications:Ty pe 2 diabetes mellitus with hemoglobin A1c goal of less than 7.0% (HCC) Use as directed 4 times a day as needed for Hyperglycemia (high sugar) or Hypoglycemia (low sugar). Use up to four times a day as directed 1 Kit 8 Active ONETOUCH ULTRASOFT LANCETS MISCIndications:T ype 2 diabetes mellitus with hemoglobin A1c goal of less than 7.0% (HCC) Use as directed 4 times a day as needed for Hyperglycemia (high sugar) or Hypoglycemia (low sugar). Use up to four times a day as directed 1 Box Dosing Unit 11 9 Active Glucose Blood (ONETOUCH ULTRA BLUE) STRPIndications:T ype 2 diabetes mellitus with hemoglobin A1c goal of less than 7.0% (HCC) Use as directed 4 times a day as needed for Hyperglycemia (high sugar) or Hypoglycemia (low sugar). Use up to four times a day as directed 100 Strip 11 0 Active OneTouch Ultra Blue In Vitro Strip (Glucose Blood)Indications :Type 2 diabetes mellitus with hemoglobin A1c goal of less than 7.0% (HCC) Use as directed daily . E11.9 100 Strip 11 2 Active OneTouch UltraSoft LancetsIndication s:Type 2 diabetes mellitus with hemoglobin A1c goal of less than 7.0% (HCC) Use as directed daily . E11.9 100 Each 3 2 Active OneTouch Ultra 2 w/Device KitIndications:Ty pe 2 diabetes mellitus with hemoglobin A1c goal of less than 7.0% (HCC) Use once daily E11.9 1 Kit 2 Active Lisinopril 40 MG Oral TabletIndications :HTN, goal below 140/90 Take 1 Tablet by mouth in the morning. 90 Tablet 3 3 Active amLODIPine Besylate 2.5 MG Oral Tablet (Norvasc)Indicati ons:HTN, goal below 140/90 TAKE ONE TABLET BY MOUTH EVERY DAY 90 Tablet 3 4 Active hydroCHLOROthiazi de 25 MG Oral Tablet (Hydrodiuril)Kari cations:HTN, goal below 140/90 TAKE ONE TABLET BY [...] morning. Active Hydrocortisone (Perianal) 2.5 % External CreamIndications: Hemorrhoids, external without complications Administer into the rectum 2 times a day. 28 g 3 4 Active Menthol-Zinc Oxide 0.44-20.6 % External Ointment (Calmoseptine) Apply topically to affected area as needed for Irritation. Apply to buttocks. 113 g 5 4 Active Mounjaro 2.5 MG/0.5ML Subcutaneous Solution Pen-injector INJECT 2.5 MG 0.5 ML) UNDER THE SKIN EVERY 7 DAYS 4 05/17/20 24 Discontinued documented as of this encounter (statuses as of 05/18/2024) Active Problems Problem Noted Date Diagnosed Date Colitis 04/04/2024 History of 2019 novel coronavirus disease (COVID -19) 03/02/2022 History of endometrial cancer 09/14/2017 Anemia 01/05/2017 [...] as of this encounter (statuses as of 05/18/2024) Resolved Problems Problem Noted Date Diagnosed Date [...] as of this encounter (statuses as of 05/18/2024) Immunizations Name Administration Dates Next Due COVID-19 mRNA, LNP-s, No Pre serve, 2-Dose Series (Pfizer) 03/21/2021,08/05/2020,07/16/2020 H1N1 2009 Influenza, IM 05/09/2009 Hepatitis B, 20+ yrs 03/21/2014,10/18/2013,09/12 PPD 12/10/2015,09/12/2013 Pneumococcal Conjugate Vacci ne, 20-valent ([id number]) 03/02/2022 Pneumococcal Polysaccharide PPV23 (Pneumovax) 09/11/2008 RSV [...] on file documented as of this encounter Plan of Treatment Upcoming Encounters Date Type Department Care Team (Late st Contact Info) Description 06/30/2024 10:30 AM EST Office Visit [facility] [place] [address] [place] [address] Tawnya Morelos CRNP [address] [place] [address] 10/03/2024 9:00 AM EDT Office Visit Family Practice [facility] [place] [address] [place] [address] Paradise Negron PA-C 200 [facility] [place] [address] Health Maintenance Due Date Last Done Comments Cologuard 2003 Sigmoidoscopy 2003 Fecal Occult Blood Test 01/05/2018 01/05/2017 DXA Scan 2023 Albumin/Creatinine Ratio 04/24/2023 022, 09/11/2020, 08/04/2019, Additional history exists Adult Wellness Visit 01/26/2024 COVID-19 Vaccine ( season) 2024 03/21/2021, 08/05/2020, 07/16/2020 Depression Screening 04/14/2024 04/14/2023 Diabetic Foot Exam 04/14/2024 04/14/2023, 0 03/02/2022, 01/31/2021, Additional history exists Mammogram 08/04/2024 08/04/2023, 0510/2021, 12/13/2020, Additional history exists Diabetic Eye Exam [...] Not on filedocumented as of this encounter Procedures Procedure Name Priority Date/Time Associated Diagnosis Comments CHEMISTRY-OUTSIDE Routine 05/16/2024 documented in this encounter Results * (ABNORMAL) CHEMISTRY-OUTSIDE (05/16/2024) Not all results display below - see scan for full detail OUTSIDE LAB (SEE SCANNED REPORT) Comment:SCAN INCLUDES - A1C, BMP, UA CREATININE 0.68 0.6 - 1.2 MG/DL OUTSIDE LAB (SEE SCANNED REPORT) EGFR 95.99 OUTSIDE LA B (SEE SCANNED REPORT) POTASSIUM 3.8 3.5 - 5.1 MMOL/L OUTSIDE LAB (SEE SCANNED REPORT) GLUCOSE 115(A) 70 - 99 MG/DL OUTSIDE LAB (SEE SCANNED REPORT) HOURS FASTING OUTSID E LAB (SEE SCANNED REPORT) TRIGLYCERIDES-OU TSIDE LAB OUTSIDE LAB (SEE SCANNED REPORT) CHOLESTEROL-OUTS TIMOTHY LAB OUTSIDE LAB (SEE SCANNED REPORT) HDL-OUTSIDE LAB OUTS TIMOTHY LAB (SEE SCANNED REPORT) CHOL/HDL RATIO-OUTSIDE LAB OUTSIDE LAB (SEE SCANNED REPORT) LDL (CALCULATED)-OUT SIDE LAB OUTSIDE LAB (SEE SCANNED REPORT) LDL (DIRECT MEASURE)-OUTSIDE LAB OUTSIDE LAB (SEE SCANNED REPORT) HEMOGLOBIN, P9O-VNGREGQ LAB 5.7(A) 4.5 - 5.6 % OUTSIDE LAB (SEE SCANNED REPORT) PHOSPHORUS-OUTSI DE LAB OUTSIDE LAB (SEE SCANNED REPORT) PTH-OUTSIDE LAB OUTS TIMOTHY LAB (SEE SCANNED REPORT) MICROALBUMIN RATIO-OUTSIDE LAB OUTSIDE LAB (SEE SCANNED REPORT) PROTEIN, UA-OUTSIDE LAB 2+(H) NEGATIVE OUTSIDE LAB (SEE SCANNED REPORT) HGB OUTSIDE LA B (SEE SCANNED REPORT) 05/16/2024 George Cantrell III, MD LABORATORY OUTSIDE LAB (SEE SCANNED REPORT) documented in this encounter Care Teams Audio Visual Design Engineer Relationship Specialty Start Date End Date Migdalia October SUZANNA AlmazanC [address] [place], [place] [address] PCP - General Physician Party Plan Sales Director 03/02/22 documented as of this encounter
--- OUTSIDE RECORDS SUMMARY | 2024-05-21 15:43 | External Medical Summary | Summary of Care ---
Author Name Unknown Organization [facility] Address [address] [place] [address] Phone [phone] Care Team Providers Care Continuity Manager Name Role Phone Paradise Negron PA-C Primary Care Provider [phone] Reason for Visit * Reason Onset Date Comments Test Results 05/18/2024 Encounter Details Date Type Department Care Team (Late st Contact Info) Description 05/18/2024 Telephone Family Practice [facility] 200 [place] [address] Paradise Negron PA-C [address] [facility] [address] Test Results Allergies Active Allergy Reactions Criticality Noted Date [...] (HCC) tests twice daily 1 Box 11 01/23/2010 Active SHANIA CONTOUR TEST STRPIndications:DM type 2, not at goal (HCC) TEST 2 TIMES DAILY 100 Strip 5 10/26/2012 Active Multiple Vitamins-Minerals (MULTIVITAMIN ADULT) TABS Take by mouth. Active Blood Glucose Monitoring Suppl (ONETOUCH ULTRA SYSTEM) w/Device KITIndications:Type 2 diabetes mellitus with hemoglobin A1c goal of less than 7.0% (HCC) Use as directed 4 times a day as needed for Hyperglycemia (high sugar) or Hypoglycemia (low sugar). Use up to four times a day as directed 1 Kit 10/04/2017 Active ONETOUCH ULTRASOFT LANCETS MISCIndications:Typ e 2 diabetes mellitus with hemoglobin A1c goal of less than 7.0% (HCC) Use as directed 4 times a day as needed for Hyperglycemia (high sugar) or Hypoglycemia (low sugar). Use up to four times a day as directed 1 Box Dosing Unit 11 01/20/2019 Active Glucose Blood (ONETOUCH ULTRA BLUE) STRPIndications:Typ e 2 diabetes mellitus with hemoglobin A1c goal of less than 7.0% (HCC) Use as directed 4 times a day as needed for Hyperglycemia (high sugar) or Hypoglycemia (low sugar). Use up to four times a day as directed 100 Strip 11 11/02/2019 Active OneTouch Ultra Blue In Vitro Strip (Glucose Blood)Indications:T ype 2 diabetes mellitus with hemoglobin A1c goal of less than 7.0% (HCC) Use as directed daily . E11.9 100 Strip 11 09/01/2021 Active OneTouch UltraSoft LancetsIndications: Type 2 diabetes mellitus with hemoglobin A1c goal of less than 7.0% (HCC) Use as directed daily . E11.9 100 Each 3 09/01/2021 Active OneTouch Ultra 2 w/Device KitIndications:Type 2 diabetes mellitus with hemoglobin A1c goal of less than 7.0% (HCC) Use once daily E11.9 1 Kit 09/01/2021 Active Lisinopril 40 MG Oral TabletIndications:H TN, goal below 140/90 Take 1 Tablet by mouth in the morning. 90 Tablet 3 07/13/2023 Active amLODIPine Besylate 2.5 MG Oral Tablet (Norvasc)Indication s:HTN, goal below 140/90 TAKE ONE TABLET BY MOUTH EVERY DAY 90 Tablet 3 08/05/2023 Active hydroCHLOROthiazide 25 MG Oral Tablet (Hydrodiuril)Indica tions:HTN, goal below 140/90 TAKE ONE TABLET BY MOUTH EVERY DAY 34 Tablet 11 08/17/2023 Active IBU 600 MG Oral Tablet Take 1 Tablet by mouth every 8 hours as needed. 10/12/2023 Active Ventolin HFA 108 (90 Base) MCG/ACT Inhalation Aerosol Solution Inhale 2 Puffs by mouth every 4 hours as needed for Wheezing. 18 g 11 10/14/2023 Active Pantoprazole Sodium 40 MG Oral Tablet Delayed Release (Protonix) Take 1 Tablet by mouth in the morning. Active Hydrocortisone (Perianal) 2.5 % External CreamIndications:He morrhoids, external without complications Administer into the rectum 2 times a day. 28 g 3 03/22/2024 Active Menthol-Zinc Oxide 0.44-20.6 % External Ointment (Calmoseptine) Apply topically to affected area as needed for Irritation. Apply to buttocks. 113 g 5 03/22/2024 Active Nitrofurantoin Monohyd Macro 100 MG Oral Capsule (Macrobid)Indicatio ns:Suspected UTI Take 1 Capsule by mouth in the morning and 1 Capsule before bedtime. Do all this for 5 days. 10 Capsule 05/17/2024 4 Active Mounjaro 7.5 MG/0.5ML Subcutaneous Solution Pen-injector (Tirzepatide)Indica tions:Type 2 diabetes mellitus with hemoglobin A1c goal of less than 7.0% ([facility]) Inject 7.5 mg under the skin once a week. 2 mL 11 05/17/2024 5 Active documented as of this encounter (statuses as [...] PPD 12/10/2015,09/12/2013 Pneumococcal Conjugate Vacci ne, 20-valent ([id number]) 03/02/2022 Pneumococcal Polysaccharide PPV23 (Pneumovax) 09/11/2008 RSV [...] on file documented as of this encounter Miscellaneous Notes * Telephone Encounter - Lara Weiss CPhT - 05/18/2024 12:06 PM EDT Received urinalysis results from [facility] via fax. Scanned into pt's chart. Thank you, Lara Weiss CPhT Food Safety Field Specialist III [facility] ([facility]) 05/18/2024, 12:07 PM documented in this encounter Plan of Treatment Upcoming Encounters Date Type Department Care Team (Late st Contact Info) Description 06/30/2024 10:30 AM EST Office Visit [facility] Disorders Ctr [facility] [place] [address] [place] [address] Tawnya Morelos CRNP [address] [place] [address] 10/03/2024 9:00 AM EDT Office Visit Family Practice [facility] [place] [address] [place] [address] Paradise Negron PA-C [address] [place] [address] Health Maintenance Due Date Last Done Comments [...] Not on filedocumented as of this encounter Care Teams Continuity Manager Relationship Specialty Start Date End Date MigdaliaOctober KAMILA Almazan [address] [place] [address] PCP - General Physician Health Informatics Instructor 03/02/22 documented as of this encounter
--- OUTSIDE RECORDS SUMMARY | 2024-05-21 15:43 | External Medical Summary | Summary of Care ---
Author Name Unknown Organization [facility] Address [address] [place] [address] Phone [phone] Care Team Providers Care Director Medical Safety Name Role Phone Paradise Negron PA-C Primary Care Provider Reason for Referral * Medication Prior Authorization - Closed Specialty Diagnoses / Procedures Referred By Leonila martines Referred To Contact Diagnoses Type 2 diabetes mellitus with hemoglobin A1c goal of less than 7.0% ([facility]) Angel Luis Sharma DO [address] [place] [address] Referral ID Status Reason Start Date Expiration Date Visits Re quested Visits Authorized [id number] Closed 999 999 Reason for Visit * Reason Onset Date Comments Medication Refill 05/16/2024 Encounter Details Date Type Department Care Team (Late st Contact Info) Description 05/16/2024 Telephone Family Practice [facility] [place] [address] [place] [address] Paradise Negron PA-C [address] [place] [address] Medication Refill Allergies Active Allergy Reactions Criticality Noted Date Comments Adhesive Tape 12/18/2009 Blisters and skin rubs off Ciprofloxacin Rash 08/15/2006 Fixed drug eruption. Severe skin rash, itchy Codeine 01/21/2012 Falling asleep, disoriented Morphine Sulfate Itching 01/27/2017 Oxycodone Abdominal pain 01/27/2017 Headaches Penicillins Rash 05/18/2000 Unsure as a child. Pt has asthma Sulfa Antibiotics 01/15/2015 documented as of this encounter (statuses as of 05/17/2024) Medications Medication Sig Dispensed Refills Start Date [...] hemoglobin A1c goal of less than 7.0% ([facility]) Use once daily E11.9 1 Kit 2 [...] Active Mounjaro 7.5 MG/0.5ML Subcutaneous Solution Pen-injector (Tirzepatide)Kari cations:Type 2 diabetes mellitus with hemoglobin A1c goal of less than 7.0% ([facility]) Inject 7.5 mg under the skin once a week. 2 mL 11 4 05/17/20 25 Active Mounjaro 2.5 MG/0.5ML Subcutaneous Solution Pen-injector INJECT 2.5 MG 0.5 ML) UNDER THE SKIN EVERY 7 DAYS 4 05/17/20 24 Discontinued documented as of this encounter (statuses as of 05/17/2024) Active Problems Problem Noted Date Diagnosed Date [...] as of this encounter (statuses as of 05/17/2024) Resolved Problems Problem Noted Date Diagnosed Date [...] as of this encounter (statuses as of 05/17/2024) Immunizations Name Administration Dates Next Due COVID-19 mRNA, LNP-s, No Pre serve, 2-Dose Series ([employer]) 03/21/2021,08/05/2020,07/16/2020 H1N1 2009 Influenza, IM 05/09/2009 Hepatitis B, 20+ yrs 03/21/2014,10/18/2013,09/12 PPD 12/10/2015,09/12/2013 Pneumococcal Conjugate Vacci ne, 20-valent ([id number]) 03/02/2022 Pneumococcal Polysaccharide PPV23 (Pneumovax) 09/11/2008 RSV [...] encounter Miscellaneous Notes * Telephone Encounter - Angel Luis Sharma DO - 05/17/2024 5:03 PM EDT SCript sent * Telephone Encounter - Penny Monterroso LPN - 05/17/2024 12:37 PM EDT I did not pend a refill because current med list has Mounjaro 2.5 mg listed. * Telephone Encounter - Megha Mcneil CPhT - 05/16/2024 3:59 PM EDT Pt calling requesting a refill on Mounjaro 7.5 mg , Pt stated she was told by Nutrition and Weight Management doctor to reached out to PCP for refills until Pt appt on 08/09/24, Pt stated if any question please reach out to Pt caller can be reached [phone]. Thank you, Megha Mcneil CPhT Rn Perioperative II [facility] ([facility]) (Formerly Telepharmacy) 05/16/2024,4:03 PM documented in this encounter Plan of Treatment Upcoming Encounters Date Type Department Care Team (Late st Contact Info) Description 06/30/2024 10:30 AM EST [facility] 132 [facility] [place] [address] Tawnya Morelos CRNP 132 [facility] [place] [address] 10/03/2024 9:00 AM EDT Office Visit Family Practice [facility] 200 [facility] [place] [address] Paradise Negron PA-C 200 [facility] [place] [address] Health Maintenance Due Date Last Done Comments [...] as of this encounter Visit Diagnoses Diagnosis Type 2 diabetes mellitus with hemoglobin A1c goal of less than 7.0% (HCC)- Primary documented in this encounter Care Teams Director Medical Safety Relationship Specialty Start Date End Date MigdaliaOctober KAMILA Almazan [address] [place] [address] PCP - General Physician Ballpoint Pen Cartridge Tester 03/02/22 documented as of this encounter
--- OUTSIDE RECORDS SUMMARY | 2024-05-21 15:43 | External Medical Summary | Summary of Care ---
Author Name Unknown Organization [facility] Address [address] [place] [address] Phone [phone] Care Team Providers Care Spray Gun Repairer Helper Name Role Phone Paradise Negron PA-C Primary Care Provider [phone] Reason for Visit * Reason Onset Date Comments Test Results 05/18/2024 Encounter Details Date Type Department Care Team (Late st Contact Info) Description 05/18/2024 Telephone Family Practice [facility] 200 [place] [address] Paradise Negron PA-C 200 [facility] [address] Test Results Allergies Active Allergy Reactions Criticality [...] hemoglobin A1c goal of less than 7.0% ([facility]) Inject 7.5 mg under the [...] PPD 12/10/2015,09/12/2013 Pneumococcal Conjugate Vacci ne, 20-valent ([id number]) 03/02/2022 Pneumococcal Polysaccharide PPV23 (Pneumovax) 09/11/2008 RSV [...] 12:06 PM EDT Received urinalysis results from [facility] via fax. Scanned into pt's chart. Thank you, Lara Weiss CPhT Casino Duty Manager III [facility] ([facility]) 05/18/2024, 12:07 PM documented in this encounter Plan of Treatment Upcoming Encounters Date Type Department Care Team (Late st Contact Info) Description 06/30/2024 10:30 AM EST Office Visit [facility] Disorders Ctr [facility] [place] [address] [place] [address] Tawnya Morelos CRNP [address] [place] [address] 10/03/2024 9:00 AM EDT Office Visit Family Practice [facility] [place] [address] [place] [address] Paradise Negron PA-C [address] [place] [address] Health Maintenance Due Date Last Done Comments [...] filedocumented as of this encounter Care Teams Spray Gun Repairer Helper Relationship Specialty Start Date End Date MigdaliaOctober KAMILA Almazan [address] [place] [address] PCP - General Physician It Program Manager 03/02/22 documented as of this encounter
--- OUTSIDE RECORDS SUMMARY | 2024-05-21 15:44 | External Medical Summary | Summary of Care ---
Author Name Unknown Organization [facility] Address [address] [place] [address] Phone [phone] Care Team Providers Care Sand Analyst Name Role Phone Paradise Negron PA-C Primary Care Provider [phone] Reason for Visit * Reason Onset Date Comments Fax 05/16/2024 Encounter Details Date Type Department Care Team (Late st Contact Info) Description 05/16/2024 Telephone Family Practice [facility] [address] Paradise [facility] [address] Fax Allergies Active Allergy Reactions Criticality Noted Date [...] EVERY DAY 34 Tablet 11 08/17/2023 Active Mounjaro 2.5 MG/0.5ML Subcutaneous Solution Pen-injector INJECT 2.5 MG 0.5 ML) UNDER THE SKIN EVERY 7 DAYS 08/18/2023 Active IBU 600 MG Oral Tablet Take [...] to buttocks. 113 g 5 03/22/2024 Active documented as of this encounter (statuses [...] PPD 12/10/2015,09/12/2013 Pneumococcal Conjugate Vacci ne, 20-valent ([id number]) 03/02/2022 Pneumococcal Polysaccharide PPV23 (Pneumovax) 09/11/2008 RSV [...] encounter Miscellaneous Notes * Telephone Encounter - Jessie Love [facility] - 05/17/2024 11:11 AM EDT Addressed in bellhop encounter. Thank you, Jessie Love, PharmD Clinical Pharmacist [facility] ([facility]) 05/17/24 11:12 AM [phone] * Telephone Encounter - Mahsa Collins OSA - 05/16/2024 12:10 PM EDT Caller requesting the following information to be faxed: Name/Company of caller: [employer] Information requested to be faxed: urine labs Fax number: unknown Attention to Name/Company: [facility] Any additional information?: call pt once faxed documented in this encounter Plan of Treatment Upcoming Encounters Date Type Department Care Team (Late st Contact Info) Description 06/30/2024 10:30 AM EST Office Visit [facility] [place] [address] [place] [address] Tawnya Morelos CRNP [address] [place] [address] 10/03/2024 9:00 AM EDT Office Visit Family Practice [facility] [place] [address] [place] [address] Paradise Negron PA-C [address] [place] [address] Health Maintenance Due Date Last Done Comments Cologuard 2003 Sigmoidoscopy 2003 Fecal Occult Blood Test 01/05/2018 01/05/2017 DXA Scan 2023 Albumin/Creatinine Ratio 04/24/2023 022, 09/11/2020, 08/04/2019, Additional history exists HbA1c 10/21/2023 05/16/2024, 03/27, 04/24/2022, Additional history exists Adult Wellness Visit 01/26/2024 COVID-19 Vaccine ( season) 2024 03/21/2021, 08/05/2020, 07/16/2020 Depression Screening 04/14/2024 04/14/2023 Diabetic Foot Exam 04/14/2024 04/14/2023, 0 03/02/2022, 01/31/2021, Additional history exists GFR 04/22/2024 05/16/2024, 03/27, 04/24/2022, Additional history exists Mammogram 08/04/2024 08/04/2023, 11/24, 12/13/2020, Additional history exists Diabetic Eye Exam 08/26/2024 08/26/2023, , 10/07/2020, Additional history exists Lipid Panel 04/22/2028 04/22/2023, [...] filedocumented as of this encounter Care Teams Sand Analyst Relationship Specialty Start Date End Date MigdaliaOctober Norah, KAMILA [address] [place] [address] PCP - General Physician Assistant To The Vice President 03/02/22 documented as of this encounter
--- OUTSIDE RECORDS SUMMARY | 2024-05-21 15:44 | External Medical Summary | Summary of Care ---
Author Name Unknown Organization [facility] Address [address] [place] [id number] Phone [phone] Care Team Providers Care Wind Up Worker Name Role Phone Paradise Negron PA-C Primary Care Provider [phone] Encounter Details Date Type Department Care Team (Late st Contact Info) Description 05/17/2024 Orders Only Family Practice [facility] [address] [facility] [place] [address] Paradise Negron PA-C [address] [facility] [place] [address] Allergies Active Allergy Reactions Criticality Noted Date [...] PPD 12/10/2015,09/12/2013 Pneumococcal Conjugate Vacci ne, 20-valent ([id number]) 03/02/2022 Pneumococcal Polysaccharide PPV23 (Pneumovax) 09/11/2008 RSV [...] EST [facility] [address] [place] [address] Tawnya Morelos CRNP [address] [place] [address] 10/03/2024 9:00 AM EDT Office Visit Family Practice [facility] [place] [address] [facility] [place] [address] Paradise Negron PA-C [address] [facility] [place] [address] Health Maintenance Due Date Last Done Comments [...] LAB OUTSIDE LAB (SEE SCANNED REPORT) HEMOGLOBIN, [id number] LAB 5.7(A) 4.5 - 5.6 % OUTSIDE [...] REPORT) documented in this encounter Care Teams Wind Up Worker Relationship Specialty Start Date End Date Migdalia October KAMILA Almazan [address] [place] [address] PCP - General Physician [facility] Coordinator 03/02/22 documented as of this encounter
[2024-05-21] MEDS: SODIUM CHLORIDE 0.9% 1,000 ML IV ONE (16:35)
[2024-05-21] MEDS: FAMOTIDINE 20MG IV PUSH 20 MG/5 ML SYR IV STA (16:35)
[2024-05-21] MEDS: cefOXitin 2,000 MG/60 ML BAG IV STA (16:38)
[2024-05-21 16:43] LABS: Appearance Urine Clear (Clear); Bacteria Urine Automated None Seen (None Seen); Bilirubin Urine Negative (Negative); Blood Urine 2+ (Negative); Color Urine Yellow; Epithelial Cell Urine Auto 0-2 /hpf (0-2); Glucose Urine UA Negative (Negative); Ketones Urine Negative (Negative); Leukocyte Esterase Urine 1+ (Negative); Nitrite Urine Negative (Negative); Protein Urine 1+ (Negative); Specific Gravity Urine 1.012 (1.000-1.030); Urobilinogen Urine Negative (Negative); pH Urine 5.5 (4.5-7.5)
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
[2024-05-21 16:50] LABS: Basophils # (auto) 0.03 K/uL (0.00-0.20); Basophils % (auto) 0.4 %; Eosinophils # (auto) 0.02 K/uL (0.00-0.50); Eosinophils % (auto) 0.3 %; Hematocrit (blood only) 36.8 % (37.0-47.0); Hemoglobin 12.3 g/dl (12.0-16.0); Immature Granulocytes # (auto) 0.03 K/uL (0.01-0.20); Immature Granulocytes % (auto) 0.4 %; Lymphocytes # (auto) 0.59 K/uL (1.20-3.40); Lymphocytes % (auto) 8.1 %; Mean Corpuscular Hemoglobin 26.2 pg (25.0-34.0); Mean Corpuscular Hgb Conc 33.4 g/dL (32.0-36.0); Mean Corpuscular Volume 78.5 fL (80.0-100.0); Mean Platelet Volume 11.5 fL (9.4-12.4); Monocytes # (auto) 0.31 K/uL (0.11-0.59); Monocytes % (auto) 4.2 %; Neutrophils # (auto) 6.34 K/uL (1.40-6.50); Neutrophils % (auto) 86.6 %; Platelet Count 211 K/uL (130-400); RDW Coefficient of Variation 13.9 % (11.5-14.5); RDW Standard Deviation 39.5 fL (36.4-46.3); Red Blood Count 4.69 M/uL (4.20-5.40); White Blood Count 7.32 K/ul (4.8-10.8)
[2024-05-21 17:09] LABS: Albumin Globulin Ratio 1.1 (0.9-2); Albumin Level 3.4 gm/dl (3.4-5.0); Bilirubin,Total 0.5 mg/dl (0.2-1.0); Calcium 8.6 mg/dl (8.6-10.3); Creatinine Clr Calc Pharmacy 97.5 ml/min; Globulin 3.1 gm/dl (2.5-4.0); Magnesium 1.7 mg/dl (1.7-2.4); Potassium 3.7 mmol/L (3.5-5.1); Total Protein 6.5 gm/dl (6.0-8.3)
[2024-05-21 17:16] LABS: Troponin I High Sensitivity 31.3 pg/ml (0-14)
[2024-05-21 17:25] LABS: Thyroid Stimulating Hormone 0.194 uIu/ml (0.300-4.500)
[2024-05-21] MEDS: OPTIRAY 320 100ml IV ONE (17:38)
[2024-05-21 18:01] LABS: T4 Free Thyroxine 1.66 ng/dl (0.61-1.60)
[2024-05-21] MEDS: ACETAMINOPHEN 1,000 MG/100 ML VIAL IV STA (18:13)
--- NOTE | 2024-05-21 18:15 | CT Scan Report ---
CT OF THE ABDOMEN AND PELVIS WITH CONTRAST CLINICAL HISTORY: recent uti, fever, vomiting COMPARISON STUDY: CT of the abdomen and pelvis March 13, 2024. TECHNIQUE: Following IV administration of 93 mL of Optiray, axial images of the abdomen and pelvis we re obtained from the lung bases to the proximal femurs. Images were reviewed in the axial, sagittal, and coronal planes. IV contrast was administered without complication. Automated exposure control wa s utilized for the study. A dose lowering technique was utilized adhering to the principles of ALARA . CT DOSE: 1407.83 mGy.cm FINDINGS: Lung bases are unremarkable. No pneumatosis, free air or portal venous gas is present. Ther e is no biliary ductal dilatation status post cholecystectomy. There are no hepatic lesions. A 1.3 cm hypodense splenic lesion is similar to prior CT. Adrenal glands and pancreas are unremarkable. Multi ple mildly enlarged abdominal or pelvic lymph nodes are noted. Index portacaval lymph node on image 1 18 of 381 measures 2.6 x 1.6 cm. A left common iliac chain lymph node on image 229 measures 1.8 x 1.5 cm. There is no hydronephrosis. There are no ureteral calculi. No bladder calculi are present. There is bilateral perinephric stranding. There is urothelial thickening of the bilateral collecting syste ms. A water attenuation 6.5 cm left lower pole renal lesion has a thin perceptible wall. Additional w ater attenuation left renal lesions likely reflect cysts. A 1.8 cm hypodense right upper pole focus o n image 155 of 381 appeared to represent a cyst on prior CT and has increased in size. The margins ar e indistinct. Hypoenhancement within the lower pole of the right kidney is noted. Additional hypoenha ncing foci within the right kidney are present. Enhancement of the left kidney is slightly heterogene ous. There is no evidence for a bowel obstruction. Trace fluid within the pelvis is present. The appe ndix is normal. Mild wall thickening of the cecum is likely due to underdistention. IMPRESSION: 1. Heterogeneous enhancement of the right kidney consistent with acute pyelonephritis. Possible left- sided pyelonephritis. Bilateral perinephric stranding. Urothelial thickening of the bilateral collect ing systems suggestive of pyelitis. 2. 1.8 cm right upper renal hypodense focus, increase in size since prior exam. This favors an infect ed cyst/developing renal abscess. A short-term follow-up CT of the abdomen with contrast in 3 months is recommended to ensure resolution and exclude the possibility of an underlying renal lesion. 3. Additional bilateral renal lesions, as described above, including a 6.5 cm left lower pole renal l esion with thin wall. This favors a cyst but should be assessed on follow-up exam. 4. No urinary calculi or hydronephrosis. 5. Multiple mildly enlarged abdominal or pelvic lymph nodes, as described above. These are indetermin ate and can be assessed on follow-up CT to ensure stability. ACT 112: Positive. There are findings on this exam that require communication between the performing entity and the patient following Patient Test Result Information Act ([place] Act 112) guidelines. Electronically signed by: Ashkan Fernandez M.D. 05/21/2024 6:13 PM
--- NOTE | 2024-05-21 18:19 | XRay Report ---
XR chest 1V portable CLINICAL HISTORY: vomiting, elevated trop COMPARISON STUDY: Chest CT February 13, 2021. Chest radiograph December 06, 2023. FINDINGS: There is no pneumothorax or pleural effusion. The heart is mildly enlarged. There is pulmon monika vascular congestion. No consolidation is identified to suggest pneumonia. IMPRESSION: Mild cardiomegaly with pulmonary vascular congestion. ACT 112: Negative or not required by law. Electronically signed by: Ashkan Fernandez M.D. 05/21/2024 6:17 PM
[2024-05-21] MEDS ORDERED: cefOXitin 2,000 MG in DEXTROSE 5 % MINI-B 50 ML IV SCH (19:15)
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
[2024-05-21] MEDS ORDERED: ALBUTEROL HFA 8 GM INHALER INH PRN (21:07)
[2024-05-21] MEDS: ASPIRIN 81 MG ECTAB PO SCH (21:37)
[2024-05-21] MEDS: ACETAMINOPHEN 500 MG TAB PO SCH (21:37)
[2024-05-21] MEDS: amLODIPine BESYLATE 5 MG TAB PO SCH (21:37)
[2024-05-21] MEDS: lisinopril 40 MG TAB PO SCH (21:37)
[2024-05-21] MEDS: MULTIVITAMIN TAB PO SCH (21:37)
[2024-05-21] MEDS: HEPARIN SOD 5,000 UNIT/0.5 ML VIAL SQ SCH (21:38)
[2024-05-21] MEDS: PANTOprazole 40 MG TAB PO SCH (21:38)
[2024-05-21] MEDS: FERROUS GLUCONATE 324 MG TAB PO SCH (21:39)
[2024-05-22] MEDS: ERTAPENEM 1000MG 1,000 MG/10 ML SYR IV SCH (00:16)
[2024-05-22 06:35] LABS: Basophils # (auto) 0.04 K/uL (0.00-0.20); Basophils % (auto) 0.5 %; Eosinophils # (auto) 0.09 K/uL (0.00-0.50); Hematocrit (blood only) 31.9 % (37.0-47.0); Hemoglobin 10.7 g/dl (12.0-16.0); Immature Granulocytes # (auto) 0.04 K/uL (0.01-0.20); Immature Granulocytes % (auto) 0.5 %; Lymphocytes # (auto) 0.57 K/uL (1.20-3.40); Lymphocytes % (auto) 6.5 %; Mean Corpuscular Hemoglobin 26.6 pg (25.0-34.0); Mean Corpuscular Hgb Conc 33.5 g/dL (32.0-36.0); Mean Corpuscular Volume 79.2 fL (80.0-100.0); Mean Platelet Volume 11.2 fL (9.4-12.4); Monocytes # (auto) 0.67 K/uL (0.11-0.59); Monocytes % (auto) 7.6 %; Neutrophils # (auto) 7.35 K/uL (1.40-6.50); Neutrophils % (auto) 83.9 %; Platelet Count 186 K/uL (130-400); RDW Coefficient of Variation 14.1 % (11.5-14.5); RDW Standard Deviation 40.4 fL (36.4-46.3); Red Blood Count 4.03 M/uL (4.20-5.40); White Blood Count 8.76 K/ul (4.8-10.8)
[2024-05-22 07:04] LABS: BUN Creatinine Ratio 19.4 (10-20); Calcium 8.3 mg/dl (8.6-10.3); Creatinine Clr Calc Pharmacy 91.4 ml/min; Potassium 3.4 mmol/L (3.5-5.1)
--- NOTE | 2024-05-22 09:39 | Hospitalist Progress Note ---
Date of Service May 22, 2024 Assessment & Plan (1) Acute pyelonephritis: (2) Nausea & vomiting: Plan: UTI symptoms since Wednesday05/16/24 Had urine culture as an outpatient came back positive for ESBL E coli on 05/18 Was started on nitrofurantoin on and she initially felt better but then developed fever with chills/rigors associated nausea vomiting for the last [address] of the abdomen and pelvis showed acute right peylonephritis. Possible left pyeloneophritis. Also has 1.8cm right upper renal hypodense focus, increase in size from prior exam. Bilateral renal lesions that favors cyst. Discussed findings with patient and need for follow up CT abd later by PCP Continue IV ertapenem for now Follow up infectious workup ID consult Replete hypokalemia (3) Elevated troponin: Plan: Mildly elevated troponin but flat 31.2-31.5 Denied any chest pain/SOB (4) Hypertension: Plan: Blood pressure is controlled Continue home lisinopril, amlodipine (5) GERD (gastroesophageal reflux disease): Plan: Stable Continue PPI (6) Asthma: Plan: Continue albuterol inhaler as needed (7) Diabetes mellitus, type 2: Plan: Continue to hold metformin or other diabetic medications She has been having low blood sugar as an outpatient without any hypoglycemic symptoms Her hemoglobin A1c is 5.7 as on 05/16/2024 Will put her on sliding scale insulin coverage while in the hospital Provided DM education (8) Scoliosis of lumbar region due to degenerative disease of spine in adult: Plan: No acute issue has been (9) Disc degeneration, lumbar: Plan DVT prophylaxis Subcu heparin CODE STATUS Full I spent a total of 50 minutes coordinating, documenting and providing care for this patient excluding time spent in performance of separately billed services Admission and Anticipated Discharge Date Admission Date: May 21, 2024 Subjective Patient seen and examined Reported fever, chills and rigors have resolved so far. Last was yesterday No vomiting today. Vomited yesterday on admission Reported initial urinary symptoms (freq, dysuria) have resolved some days ago. Denied any other complaints on ROS Physical Exam Constitutional: + well hydrated; no acute distress Eyes: PERRL, conjunctivae normal, anicteric sclerae ENMT: external ear and nose normal, oropharynx normal Respiratory: normal respiratory effort, lungs clear to auscultation Cardiovascular: Rate/Rhythm: regular rate and regular rhythm Gastrointestinal (Abdomen): normal bowel sounds, soft, nontender, no hepatosplenomegaly Musculoskeletal: No pedal edema Neurologic: PERRL, EOMI, accommodation nl, no face palsy, no dysarthria Psychiatric: A+Ox3, euthymic affect Genitourinary: No CVA tenderness Results & Data Results & Data Vital Signs (Past 12 Hours) Vital Signs Temp Pulse Pulse Resp BP BP Pulse Ox 05/22/24 07:51 36.7 C 62 18 107/66 95 05/22/24 07:00 59 L 05/22/24 03:48 60 18 112/72 93 05/22/24 00:03 36.5 C 57 L 18 105/63 94 05/21/24 21:56 66 O2 Del Method 05/22/24 07:51 Room Air 05/22/24 07:00 05/22/24 03:48 Room Air 05/22/24 00:03 Room Air 05/21/24 21:56 Laboratory Results Abnormal lab results 05/21/24 05/21/24 05/21/24 Range/Units 16:05 16:06 19:45 RBC (4.20-5.40) M/uL Hgb (12.0-16.0) g/dl Hct 36.8 L (37.0-47.0) % MCV 78.5 L (80.0-100.0) fL Neut # (Auto) (1.40-6.50) K/uL Lymph # (Auto) 0.59 L (1.20-3.40) K/uL Clark # (Auto) (0.11-0.59) K/uL Sodium 133 L (136-145) mmol/L Potassium (3.5-5.1) mmol/L BUN/Creatinine Ratio 25.0 H (10-20) Glucose 118 H (70-99(Fasting)) mg/dl POC Glucose (70-99) mg/dl Calcium (8.6-10.3) mg/dl Troponin I High Sens 31.3 H 31.5 H (0-14) pg/ml TSH 0.194 L (0.300-4.500) uIu/ml Free T4 1.66 H (0.61-1.60) ng/dl Urine Protein 1+ H (Negative) Urine Blood 2+ H (Negative) Ur Leukocyte Esterase 1+ H (Negative) Urine WBC (Auto) 11-20 H (0-5) /hpf Urine RBC (Auto) 6-10 H (0-2) /hpf U Hyaline Cast (Auto) 3-5 H (0-2) /lpf 05/22/24 05/22/24 05/22/24 Range/Units 05:54 08:18 12:20 RBC 4.03 L (4.20-5.40) M/uL Hgb 10.7 L (12.0-16.0) g/dl Hct 31.9 L (37.0-47.0) % MCV 79.2 L (80.0-100.0) fL Neut # (Auto) 7.35 H (1.40-6.50) K/uL Lymph # (Auto) 0.57 L (1.20-3.40) K/uL Clark # (Auto) 0.67 H (0.11-0.59) K/uL Sodium (136-145) mmol/L Potassium 3.4 L (3.5-5.1) mmol/L BUN/Creatinine Ratio (10-20) Glucose 110 H (70-99(Fasting)) mg/dl POC Glucose 152 H 120 H (70-99) mg/dl Calcium 8.3 L (8.6-10.3) mg/dl Troponin I High Sens (0-14) pg/ml TSH (0.300-4.500) uIu/ml Free T4 (0.61-1.60) ng/dl Urine Protein (Negative) Urine Blood (Negative) Ur Leukocyte Esterase (Negative) Urine WBC (Auto) (0-5) /hpf Urine RBC (Auto) (0-2) /hpf U Hyaline Cast (Auto) (0-2) /lpf (6) Asthma Asthma complication type: unspecified Asthma persistence: unspecified Asthma severity: mild Qualified Code(s): J45.909 - Unspecified asthma, uncomplicated
--- NOTE | 2024-05-22 12:45 | Electrocardiogram Report ---
Test Reason : Blood Pressure : */* mmHG Vent. Rate : 98 BPM Atrial Rate : 98 BPM P-R Int : 140 ms QRS Dur : 78 ms QT Int : 310 ms P-R-T Axes : 76 40 55 degrees QTcB Int : 395 ms Normal sinus rhythm Nonspecific ST abnormality Abnormal ECG When compared with ECG of 10-Oct-2023 07:46, No significant change was found Confirmed by Gamal Felix ([id number]) on 05/22/2024 12:45:13 PM Referred By: REFERRED SELF Confirmed By: Gamal Felix
[2024-05-22] MEDS: POTASSIUM CHLORIDE CRTAB 20 MEQ TABCR PO STA (14:07)
[2024-05-23 07:29] LABS: Hematocrit (blood only) 32.7 % (37.0-47.0); Mean Corpuscular Hemoglobin 26.4 pg (25.0-34.0); Mean Corpuscular Hgb Conc 33.6 g/dL (32.0-36.0); Mean Corpuscular Volume 78.4 fL (80.0-100.0); Mean Platelet Volume 11.7 fL (9.4-12.4); Platelet Count 214 K/uL (130-400); RDW Coefficient of Variation 14.1 % (11.5-14.5); RDW Standard Deviation 40.2 fL (36.4-46.3); Red Blood Count 4.17 M/uL (4.20-5.40); White Blood Count 7.14 K/ul (4.8-10.8)
[2024-05-23 07:56] LABS: BUN Creatinine Ratio 17.6 (10-20); Calcium 8.4 mg/dl (8.6-10.3); Creatinine Clr Calc Pharmacy 88.5 ml/min; Potassium 4.3 mmol/L (3.5-5.1)
--- NOTE | 2024-05-23 10:50 | Hospitalist Progress Note ---
Date of Service May 23, 2024 Assessment & Plan (1) Acute pyelonephritis: (2) Nausea & vomiting: Plan: UTI symptoms since Wednesday05/16/24 Had urine culture as an outpatient on 05/16/24 came back positive for ESBL E coli on 05/18 Was started on nitrofurantoin on and she initially felt better but then developed fever with chills/rigors associated nausea vomiting for the last [address] of the abdomen and pelvis showed acute right pyelonephritis. Possible left pyelonephritis. Also has 1.8cm right upper renal hypodense focus, increase in size from prior exam. Bilateral renal lesions that favors cyst. Discussed findings with patient and need for follow up CT abd later by PCP Currently on IV ertapenem for now Urine culture this admission on 05/21 had mixed organisms, likely contaminated Awaiting ID eval/recs (3) Elevated troponin: Plan: Mildly elevated troponin but flat 31.2-31.5 Denied any chest pain/SOB (4) Hypertension: Plan: Blood pressure is controlled Continue home lisinopril, amlodipine (5) GERD (gastroesophageal reflux disease): Plan: Stable Continue PPI (6) Asthma: Plan: Continue albuterol inhaler as needed (7) Diabetes mellitus, type 2: Plan: Continue to hold metformin or other diabetic medications Her hemoglobin A1c is 5.7 as on 05/16/2024 ISS (8) Scoliosis of lumbar region due to degenerative disease of spine in adult: (9) Disc degeneration, lumbar: Plan DVT prophylaxis Subcu heparin CODE STATUS Full I spent a total of 40 minutes coordinating, documenting and providing care for this patient excluding time spent in performance of separately billed services Admission and Anticipated Discharge Date Admission Date: May 21, 2024 Subjective Patient seen and examined Reports feeling better today Fever, chills and rigors have all resolved Denied urinary symptoms Denied any other complaints on ROS Physical Exam Constitutional: + well hydrated; no acute distress Eyes: PERRL, conjunctivae normal, anicteric sclerae ENMT: external ear and nose normal, oropharynx normal Respiratory: normal respiratory effort, lungs clear to auscultation Cardiovascular: Rate/Rhythm: regular rate and regular rhythm Gastrointestinal (Abdomen): normal bowel sounds, soft, nontender, no hepatosplenomegaly Musculoskeletal: No pedal edema Neurologic: PERRL, EOMI, accommodation nl, no face palsy, no dysarthria Psychiatric: A+Ox3, euthymic affect Genitourinary: No CVA tenderness Results & Data Results & Data Vital Signs (Past 12 Hours) Vital Signs Temp Pulse Pulse Resp BP BP Pulse Ox 05/23/24 07:41 36.8 C 68 18 116/68 96 05/23/24 07:24 69 05/23/24 04:28 36.6 C 73 20 122/73 94 05/23/24 00:00 37.0 C 64 18 122/75 97 O2 Del Method 05/23/24 07:41 Room Air 05/23/24 07:24 05/23/24 04:28 Room Air 05/23/24 00:00 Room Air Laboratory Results Abnormal lab results 05/22/24 05/22/24 05/22/24 Range/Units 12:20 17:05 20:33 RBC (4.20-5.40) M/uL Hgb (12.0-16.0) g/dl Hct (37.0-47.0) % MCV (80.0-100.0) fL Sodium (136-145) mmol/L Glucose (70-99(Fasting)) mg/dl POC Glucose 120 H 106 H 115 H (70-99) mg/dl Calcium (8.6-10.3) mg/dl 05/23/24 05/23/24 Range/Units 06:33 08:02 RBC 4.17 L (4.20-5.40) M/uL Hgb 11.0 L (12.0-16.0) g/dl Hct 32.7 L (37.0-47.0) % MCV 78.4 L (80.0-100.0) fL Sodium 135 L (136-145) mmol/L Glucose 121 H (70-99(Fasting)) mg/dl POC Glucose 126 H (70-99) mg/dl Calcium 8.4 L (8.6-10.3) mg/dl (6) Asthma Asthma complication type: unspecified Asthma persistence: unspecified Asthma severity: mild Qualified Code(s): J45.909 - Unspecified asthma, uncomplicated
[2024-05-23] MEDS ORDERED: GLUCOSE 10 TAB/TUBE PO PRN (11:15)
[2024-05-23] MEDS ORDERED: GLUCAGON FOR INJ 1 MG VIAL SQ PRN (11:15)
[2024-05-23] MEDS ORDERED: DEXTROSE 50% 50 ML SYRINGE IV PRN (11:15)
[2024-05-23] MEDS ORDERED: CARBOHYDRATES FOR HYPOGLYCEMIA PO PRN (11:15)
[2024-05-23] MEDS ORDERED: GLUCOSE 40% GEL 15 GM TUBE PO PRN (11:15)
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
[2024-05-23] MEDS: INSULIN ASPART PER UNIT CHARGE SC SCH (16:18)
[2024-05-23] MEDS: ERTAPENEM 1000MG 1,000 MG/10 ML SYR IV SCH (17:02)
[2024-05-24 06:52] LABS: Hematocrit (blood only) 33.8 % (37.0-47.0); Mean Corpuscular Hgb Conc 32.5 g/dL (32.0-36.0); Mean Corpuscular Volume 79.9 fL (80.0-100.0); Mean Platelet Volume 11.2 fL (9.4-12.4); Platelet Count 257 K/uL (130-400); RDW Coefficient of Variation 14.3 % (11.5-14.5); RDW Standard Deviation 41.1 fL (36.4-46.3); Red Blood Count 4.23 M/uL (4.20-5.40); White Blood Count 7.43 K/ul (4.8-10.8)
[2024-05-24 07:02] LABS: BUN Creatinine Ratio 19.1 (10-20); Calcium 8.5 mg/dl (8.6-10.3); Creatinine Clr Calc Pharmacy 96.9 ml/min; Potassium 4.3 mmol/L (3.5-5.1)
[2024-05-24 08:14] VITALS: PULSE 60; RESP 12; TEMP 99; O2SAT 96
--- NOTE | 2024-05-24 09:50 | Discharge Summary ---
Discharge Summary Date of Service May 24, 2024 Principal Dx & Hospital Course #1 = Principal Diagnosis (1) Acute pyelonephritis: (2) ESBL (extended spectrum beta-lactamase) producing bacteria infection: (3) Renal abscess: (4) Diabetes mellitus, type 2: (5) Asthma: (6) Hypertension: Plan Patient presented to the emergency room with outpatient urine culture positive for ESBL. As patient was not responding to oral antibiotics and continue with intermittent fevers nausea and vomiting. Patient was admitted to the hospital. Started on broad-spectrum IV antibiotics. Antibiotic was transitioned to ertapenem based on sensitivities. Imaging revealed a pyelonephritis and renal abscess. Infectious disease consultation was obtained. They recommended IV or ertapenem for 3 weeks. Patient's symptoms rapidly improved with the IV antibiotics. Nausea and vomiting resolved. She had no recurrent fevers. Patient was consented for PICC line. Case management was involved with the patient and coordinated her getting her IV antibiotics daily and outpatient transfusion center. On the morning of discharge her vital signs are stable. Tolerating diet. Understands a plan for ongoing IV antibiotics outpatient. Will be discharged once she receives her antibiotics today and follow-up with her outpatient providers. Notes For Next Care Provider CBC and BMP weekly while on antibiotics Remove PICC line when antibiotics completed Consider follow-up CT abdomen pelvis in 3 to 4 weeks Medication Changes From Visit Ertapenem for ESBL UTI/pyelonephritis Admission HPI Per Admitting Provider She is a 64 years old with female with significant past medical history of hypertension, controlled asthma, type 2 diabetes, GERD, osteoarthritis, carpal tunnel syndrome, and spinal stenosis apparently has been complaining of nausea, fever of 102 and vomiting for the last 2 to 3 days. Apparently she had urinary symptoms and started on oral nitrofurantoin following a positive urine culture which was taken last Wednesday which grew ESBL. She initially felt better with the oral antibiotic but for the last 2 to 3 days she has been having fever with chills associated with nausea and also vomiting. Her urinary symptoms are gone and she has minimal pain in the right lower back. Denies any chest pain, palpitation or shortness of breath. In the ER CT scan of the abdomen pelvis showed pyelonephritis and also 1.8 cm right upper renal hypodense focus which needs to be evaluated by a CT scan of the abdomen within 3 months. She was started with intravenous cefoxitin for ESBL and was admitted to telemetry unit for continuation of care. Admission Exam Per Admitting Provider See H&P Discharge Exam Constitutional: Alert, nontoxic HEENT: Mucous membranes moist. Lungs: Clear to auscultation, decreased, no wheezes rales or rhonchi CV: S1-S2, regular Abdomen: Soft, nontender, nondistended, no CVA tenderness Extremities: No significant edema Neuro: No focal deficits Psych: Cooperative, normal mood Updated Medication List Medication Instructions Recorded Confirmed Type albuterol sulfate 90 mcg/actuation 2 inh inhalation Q4H PRN sob 02/13/21 05/21/24 History aerosol inhaler multivitamin 1 tab PO PM 02/13/21 05/21/24 History amlodipine 2.5 mg tablet 2.5 mg PO QPM 10/09/23 05/21/24 History ferrous gluconate 324 mg (38 mg 324 mg PO QPM 10/09/23 05/21/24 History iron) tablet hydrochlorothiazide 25 mg tablet 25 mg PO QAM 10/09/23 05/21/24 History lisinopril 40 mg tablet 40 mg PO QPM 10/09/23 05/21/24 History metformin 500 mg tablet 500 mg PO QPM 11/24/23 05/21/24 History ondansetron 4 mg disintegrating 4 mg PO Q8 PRN nausea #20 tabs 01/02/24 05/21/24 Rx tablet tirzepatide 7.5 mg/0.5 mL 7.5 mg subcut DIRECTED 03/13/24 05/21/24 History subcutaneous pen injector (Mounjaro) pantoprazole 40 mg tablet,delayed 40 mg PO BID #60 tabs 03/16/24 05/21/24 Rx release nitrofurantoin 100 mg PO QAM 05/21/24 05/21/24 History monohydrate/macrocrystals 100 mg capsule ertapenem 1 g IV DAILY 19 days 05/24/24 Rx Hospital Stay Data Consultations 05/21/24 18:51 ED Decision to Admit Stat 05/22/24 08:04 Consult Infectious Diseases Routine Diagnostic Imagining Performed 05/21/24 17:20 CT abd pelvis IV con only Stat Reviewed imaging, laboratory and diagnostic studies. Pertinent findings as below. Outpatient urine culture growing E. coli identified ESBL, sensitive to meropenem/ertapenem WBCs 7.4 Hemoglobin 9.0 Electrolytes all with stable and within normal ranges Creatinine 0.68 CT of the abdomen pelvis showed findings consistent with right kidney pyelonephritis, possible left pyelonephritis, possible early developing renal abscess upper pole of right kidney Pending Results Patient Have Any Pending Studies at Discharge: No Discharge Instructions Given to Patient (Per Discharging Provider) Present daily to outpatient infusion center for your antibiotics, through 06/11/2024 CBC, BMP weekly while on antibiotics Total Time Total Time Spent Total Time Spent (In Minutes): 39
[2024-05-24 11:10] VITALS: BP 135/80
[2024-05-24] MEDS: ERTAPENEM 1000MG 1,000 MG/10 ML SYR IV SCH (11:50)
== END 2024-05-24 13:10 | disposition home or self-care (01) | DRG 690 ==
LOC: ED 15:37 → SUATTDRO 19:23 → 2N 19:23